=== PATIENT | male | born 1945 | race African-American/Black ===

== ENCOUNTER 2020-11-05 14:41 | Inpatient (IN) | payer MEDICARE, OTHER, SELFPAY ==
[2020-11-05] VITALS (11 sets, daily range): BP systolic 140–195; BP diastolic 88–95; PULSE 65–83; RESP 24–41; TEMP 36.1–37.2; O2SAT 92–97; BMI 28.5
--- NOTE | ~2020-11-05 | CT_ITS ---
EXAMINATION: CT chest abdomen pelvis wo con EXAM DATE: 11/05/2020 16:42 INDICATION: Shortness of breath, low oxygen saturation. Abnormal chest x-ray. TECHNIQUE: Spiral CT of the chest, abdomen and pelvis was performed without contrast. Axial, mcneal l and sagittal images chest, abdomen and pelvis were reviewed. Coronal maximum intensity pixel image s of chest reviewed. The dose-length product (DLP) for this examination was 811.92 mGy-cm. The expo sure was tailored according to patient size (auto mA exposure control), and iterative reconstruction (ASIR) was used as additional dose reduction technique. Correlation is made to chest x-ray earlier sa me date. FINDINGS: CHEST: There is there is small to moderate size left pleural effusion with smooth pleural thickening , calcifications, adjacent multisegmental left lung round atelectasis, findings suggesting this is al l chronic. There is superimposed patchy right-sided perihilar distribution groundglass airspace disease, likely acute infection or edema. Also small to moderate right pleural effusion which is nonloculated appeari ng. There is mild mediastinal lymphadenopathy with a precarinal lymph node measuring 2.1 x 1.6 cm. T racheobronchial tree is patent. There is no pneumothorax. There is cardiomegaly and small pericar dial effusion. There is mild coronary arterial calcification, arterial sclerosis. ABDOMEN PELVIS: The liver, spleen, adrenal glands and pancreas are unremarkable. Gallbladder is unre markable. No biliary obstruction. There is no nephrolithiasis or hydronephrosis. Mild prostatomeg diana. Some diffuse bladder wall thickening, could indicate chronic cystitis. Acute cystitis not exclu dable. There is no retroperitoneal or pelvic lymphadenopathy. There is mild scattered arterioscler otic disease. The appendix is normal. The stomach and small bowel are unremarkable. There is moderate amount of c olonic stool. No free intraperitoneal gas. Right hip lag screws. There are no osteoblastic or ost eolytic lesions identified. IMPRESSION: 1. Patchy right perihilar groundglass opacities, could be acute infection or edema. 2. Mediastinal lymphadenopathy, probably reactive but malignancy not excludable. 3. Cardiomegaly, small to moderate right pleural effusion. 4. Chronic left round atelectasis and small to moderate pleural. 5. Mild prostatomegaly. Mild diffuse bladder wall thickening probably chronic cystitis. Reviewed, dictated and finalized at location A. IMPRESSION: 1. Patchy right perihilar groundglass opacities, could be acute infection or e bhavya. 2. Mediastinal lymphadenopathy, probably reactive but malignancy not excludabl e. 3. Cardiomegaly, small to moderate right pleural effusion. 4. Chronic left round atelectasis and small to moderate pleural. 5. Mild prostatomegaly. Mild diffuse bladder wall thickening probably chronic cystitis.
--- NOTE | ~2020-11-05 | US_ITS ---
EXAMINATION: US venous doppler LE EXAM DATE: 11/06/2020 08:48 INDICATION: Lateral leg edema. TECHNIQUE: Multiple grayscale, color flow and Doppler images of the lower extremity deep venous syste ms bilaterally were obtained and reviewed. There is no prior study for comparison. FINDINGS: Right side: The right common femoral, femoral and profunda veins demonstrate normal color flow, respi ratory variation, augmentation and compressibility. Compressibility, color flow confirmed within the right popliteal, posterior tibial, peroneal, and greater saphenous veins. Left side: The left common femoral, femoral and profunda veins demonstrate normal color flow, respira tory variation, augmentation and compressibility. Compressibility, color flow confirmed within the l eft popliteal, posterior tibial, peroneal, and greater saphenous veins. IMPRESSION: 1. No lower extremity deep venous thrombosis bilaterally. Reviewed, dictated and finalized at location .
--- NOTE | ~2020-11-05 | XR_ITS ---
XR chest 1V portable DATE: 11/05/2020 15:13 INDICATION: Shortness of breath TECHNIQUE: Portable upright AP chest on 11/05/2020 at 1507 hours COMPARISON: None FINDINGS: There are diffuse patchy bilateral pulmonary joints with more prominent atelectasis//or con solidation in the left lower lung. The left costophrenic angle is obscured are blunted suggesting pos sible left pleural effusion. There is minimal if any right pleural effusion. No pneumothorax. Cardiomegaly. No pneumothorax. Diffuse osteopenia. IMPRESSION: Extensive bilateral pulmonary infiltrates, with greater prominence on the left, including prominent atelectasis or consolidation in the left lower lung Cardiomegaly Reviewed, dictated and finalized at location A.
--- NOTE | 2020-11-05 14:59 | ECG_ITS ---
Measurements Intervals [place] Rate: 74 P: LA: 0 QRS: -39 QRSD: 110 T: 85 QT: 388 QTc: 431 Interpretive Statements SINUS RHYTHM WITH MARKED FIRST DEGREE AV BLOCK LEFT AXIS DEVIATION INTRAVENTRICULAR CONDUCTION DELAY BORDERLINE R WAVE PROGRESSION, ANTERIOR LEADS INFERIOR INFARCT, AGE INDETERMINATE ST-T WAVE ABNORMALITY IN HIGH LATERAL LEADS- CONSIDER ISCHEMIA BASELINE ARTIFACT- II, III, AVR, AVF, V3-V6 ABNORMAL ECG Electronically Signed On 11-05-2020 16:39:46 CDT by Laurent Lagunas D.O.
--- NOTE | 2020-11-05 15:02 | PC.NURSE ---
Pt placed on 1 L NC O2 due to 91% on room air and increased WOB.
[2020-11-05 15:15] LABS: Basophils Percent Auto 0.4 % (0.2-1.2); Eosinophils Absolute Auto 0.1 K/mm3 (0-0.3); Eosinophils Percent Auto 0.7 % (0-4.4); Hematocrit 38.5 % (42.0-52.0); Hemoglobin 12.6 g/dL (14.0-18.0); Immature Granulocyte Absolute 0.02 K/mm3 (0.00-0.031); Immature Granulocyte Percent A 0.3 % (0-0.5); Lymphocytes Absolute Auto 1.02 K/mm3 (0.9-3.2); Lymphocytes Percent Auto 13.5 % (18.3-44.2); Mean Corpuscular HGB Conc 32.7 g/dl (32-36); Mean Corpuscular Hemoglobin 29.2 pg (26-34); Mean Corpuscular Volume 89.3 fl (80-100); Monocytes Absolute Auto 0.4 K/mm3 (0.1-0.6); Monocytes Percent Auto 5.8 % (2.6-8.5); Neutrophils Percent Auto 79.3 % (45.5-73.1); Platelet Count Result 236 k/mm3 (150-375); Red Blood Count 4.31 M/mm3 (4.6-6.20); Red Cell Distribution Width 14.6 % (11.5-14.5); White Blood Count 7.6 K/mm3 (4.5-10.0)
[2020-11-05 15:25] LABS: Alanine Aminotransferase 22 U/L (4-50); Albumin Level 4.2 g/dL (3.5-5.1); Alkaline Phosphatase 74 U/L (38-126); Anion Gap 11 mmol/L (8-16); Aspartate Amino Transferase 29 U/L (17-59); Bilirubin,Total 1.2 mg/dL (0.2-1.3); Blood Urea Nitrogen 14 mg/dL (9-20); Carbon Dioxide 22 mmol/L (22-30); Chloride 106 mmol/L (98-107); Estimated CRCL calculation 70 ml/min; Estimated Glomerular Filt Rate > 60; Glucose 158 mg/dL (65-110); Lipase 46 U/L (23-300); Sodium 139 mmol/L (137-145)
[2020-11-05 15:34] LABS: INR 1.1
[2020-11-05 15:35] LABS: Partial Thromboplastin Time 27.5 SECONDS (22.3-36.8)
[2020-11-05 15:39] LABS: NT Pro B Type Natriuretic Pept 3380 pg/mL (5-100); Troponin I < 0.012 ng/mL (0.000-0.034)
--- NOTE | 2020-11-05 15:41 | PC.NURSE ---
chem, alicja, added on top I
[2020-11-05 15:53] LABS: Alveolar/Arterial O2 Gradient 70.2 mmHg; Base Excess ABG -0.9 mEq/l (+/-2.0); Fractional Inspired Oxygen 24 %; HCO3 ABG 22.3 mEq/l (22.0-26.0); Oxygen Saturation ABG 93.1 % (95.0-100.0); Oxyhemoglobin 91.4 % THb (90.0-100.0); PCO2 ABG 32.5 mmHg (35.0-45.0); PO2 ABG 62.2 mmHg (80.0-100.0); PO2 FiO2 Ratio Arterial Blood 2.59 %; Total Hemoglobin 13.2 g/dL (12.0-18.0); pH ABG 7.454 (7.350-7.450)
[2020-11-05 15:54] LABS: Device NASAL CANNULA; Modified Allen's Test Pass; Site Drawn LEFT RADIAL
[2020-11-05] MEDS: SODIUM CHLORIDE 0.9% IV 1,000 ML 999 ML IV CONT (16:05)
[2020-11-05 16:19] LABS: Add Urine Microscopic? YES; Appearance Urine Clear (Clear); Bacteria Urine Trace /hpf; Bilirubin Urine Negative (Negative); Blood Urine Negative (Negative); Color Urine Yellow (Yellow); Glucose Urine UA Negative (Negative); Ketones Urine Negative (Negative); Leukocyte Esterase Ur Negative LEU/UL (Negative); Nitrate Urine Negative (Negative); Protein Urine 2+ mg/dL (Negative); Squamous Epithelial Cell Urine Rare /hpf (Few); WBC Urine 0-3 /hpf
--- NOTE | 2020-11-05 16:34 | ED.GENADULT ---
HPI - General Adult General Chief complaint: Abdominal Pain Stated complaint: abd pain, hypoxia Time Seen by Provider: 11/05/20 15:16 Source: patient, family and RN notes reviewed Limitations: no limitations History of Present Illness HPI narrative: Patient is 75 years old -[place] male presents with shortness of breath that started yesterday. Patient denies any aggravating or relieving factors. Patient noticed some discomfort at the lower abdomen. Patient denies any fever, chills, nausea, vomiting, diarrhea, constipation, urinary symptoms, back pain or chest pain. Patient is fully vaccinated for COVID-19. Patient does not smoke or drink or uses marijuana. Related Data Allergies Allergy/AdvReac Type Severity Reaction Status Date / Time lisinopril Allergy Verified 03/27/13 05:31 Review of Systems Review of Systems: Narrative: CONSTITUTIONAL: Denies fever, chills, or sweats. EYES: Denies visual changes, redness, or discharge. ENT: Denies rhinorrhea, congestion, sore throat, or otalgia. CARDIOVASCULAR: Denies chest pain, palpitations, or edema. RESPIRATORY: Denies cough or dyspnea. GASTROINTESTINAL: Denies abdominal pain, nausea, vomiting, or diarrhea. GENITOURINARY: Denies dysuria or hematuria. SKIN: Denies rash or itching. MUSCULOSKELETAL: Denies back pain, joint pain, or myalgia. NEUROLOGIC: Denies headache, numbness, or weakness. PSYCHIATRIC: Denies anxiety or depression. PMFSH Social History Social History Gender identity (if verbalized by the patient): Male Exam Narrative: Exam Narrative: General appearance: Well-developed, well-nourished Skin: Normal color, 1+ edema lower extremity Head: Normocephalic, nontraumatic Eyes: Clear conjunctiva ENT: Oropharynx normal, ears normal, nose normal Neck: Supple, nontender Chest and respiratory: Basal rales bilaterally more on the left side, Heart: Regular rate/rhythm Abdomen: Soft, nontender, no organomegaly, quiet bowel sounds Vascular: Normal peripheral pulses, normal capillary refill. Musculoskeletal: Normal range of motion, nontender back Neurologic: Alert and oriented ?3, [employer] is normal as tested, no gross motor deficit Course Course Emergency Course: Stable, Vital Signs Vital signs: Vital Signs Temperature 37.2 C 11/05/20 14:48 Pulse Rate 69 11/05/20 14:48 Respiratory Rate 35 H 11/05/20 14:48 Blood Pressure 184/93 H 11/05/20 14:48 Pulse Oximetry 92 11/05/20 14:48 Temperature 37.2 C 11/05/20 14:48 Pulse Rate 65 11/05/20 16:01 Respiratory Rate 32 H 11/05/20 16:01 Blood Pressure 187/92 H 11/05/20 16:01 Pulse Oximetry 97 11/05/20 16:01 Medical Decision Making MDM Narrative Medical decision making narrative: Patient presents with shortness of breath, lower abdominal pain. Patient is fully vaccinated for COVID-19. Pneumonia, CHF, pulmonary embolism, viral infection are my concern. Labs, blood culture, chest x-ray ordered. Work-up showed lung infiltration pulmonary edema versus pneumonia. Congestive heart failure is my likely diagnosis. Patient does not have fever, does not cough, white count within normal limit, proBNP is elevated, positive leg edema, positive pleural effusion., History of congestive heart failure Differential Diagnosis Differential Diagnosis: Pneumonia, congestive heart failure, viral infection, urinary tract infection, diverticulitis Vital Signs Vital Signs: Vital Signs Temperature 37.2 C 11/05/20 14:48 Pulse Rate 69 11/05/20 14:48 Respiratory Rate 35 H 11/05/20 14:48 Blood Pressure 184/93 H 11/05/20 14:48 Pulse Oximetry 92 11/05/20 14:48 Temperature
--- NOTE | 2020-11-05 16:41 | PC.NURSE ---
Pt to CT scan via stretcher
[2020-11-05] MEDS: FUROSEMIDE INJ 40 MG/4 ML VIAL 60 MG IV PUSH (16:53)
--- NOTE | 2020-11-05 17:03 | PC.NURSE ---
Spoke to pt daughter Antonia and updated her on pt condition.
[2020-11-05] MEDS: NITROGLYCERIN OINTMENT 1 INCH DOSE TRANSDERM (17:22)
--- NOTE | 2020-11-05 19:30 | PM.IMHP ---
H&P: HPI History of Present Illness Date/Time: 11/05/20 19:30 Chief Complaint: Shortness of breath. Narrative: This is a very pleasant 75-year-old male with history of congestive heart failure, hypertension, and type 2 diabetes mellitus who presented to the emergency department earlier today via EMS from home for evaluation of shortness of breath. He reports increasing shortness of breath on lesser and lesser exertion over the past couple of days as well as pretty significant orthopnea, to the point where he had to sit up at the side of the bed a majority of the night. Additionally he has noticed some mild discomfort in the lower abdomen that he has a difficult time describing but he feels as though it does extend up into his chest somewhat. He has not noticed exertional chest pain and he also denies pleuritic pain, palpitations, racing heart, nausea, vomiting, sweats, syncope, and near syncope. He has not noticed any significant edema and denies calf pain and tenderness. No sinus congestion, rhinorrhea, otalgia, or odynophagia. He has not had any fever or chills. No known exposure to those positive for COVID-19. He is fully vaccinated for such. Review of Systems Review of Systems: Narrative: Twelve systems were reviewed with pertinent positives and negatives as per HPI pertinent positives and negatives as per HPI. 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 He is diabetic but denies retinopathy. He believes his diabetes is fairly well controlled. No history of coronary artery disease. He does not know the etiology of his congestive heart failure. He denies sleep apnea. No dysuria or hematuria. No issues with urinary retention. Except as documented, all other systems were reviewed and are negative. FORMERLY [facility], 1928–[facility] Past Medical History Medical History (Updated 11/05/20 @ 21:02 by Denice Jean-Baptiste PA-C) Congestive heart failure Deep venous thrombosis Glaucoma Hypertension Legally blind Type 2 diabetes mellitus Surgical History Surgical History History of orthopedic surgery Right hip pinning after fracture in the 1960s. Family History Family History (Updated 11/05/20 @ 20:43 by Denice Jean-Batpiste PA-C) Other Diabetes mellitus Hypertension Social History Social History (Updated 11/05/20 @ 20:44 by Denice Jean-Baptiste PA-C) Social History: The patient lives in [place] with his . He is retired from the [employer]. Lifelong nonsmoker. No alcohol or illicit substance abuse. He designates his , Nelly Sarah, as his surrogate decision maker and he wishes to be a full code. Meds Home Medications and Allergies Allergies Allergy/AdvReac Type Severity Reaction Status Date / Time lisinopril Allergy Unknown Verified 11/05/20 18:35 Vital Signs Vital Signs - 24 hr 11/05/20 14:48 11/05/20 16:01 11/05/20 16:51 Temperature 98.9 F Pulse Rate 69 65 73 Respiratory Rate 35 H 32 H 37 H Blood Pressure 184/93 H 187/92 H 195/95 H Pulse Oximetry 92 97 94 11/05/20 17:21 11/05/20 18:20 11/05/20 19:18 Temperature Pulse Rate 80 73 Respiratory Rate 41 H 38 H Blood Pressure 140/91 H 170/88 H Pulse Oximetry 94 94 95 11/05/20 20:29 Temperature Pulse Rate 69 Respiratory Rate 36 H Blood Pressure 164/90 H Pulse Oximetry 96 Exam Narrative: Exam Narrative: General: Well-developed elderly male sitting at the side of the bed. Weight: 89 kg. BMI: 29.8. HEENT: Patient keeps his eyes closed throughout the interview; he is legally blind. Oral mucosa moist. Oropharynx clear. Neck: Supple. Mild JVD. Respiratory: Mildly tachypneic but he appears in no respiratory distress. He is speaking in full sentences. He takes shallow breaths with decreased breath sounds bibasilarly and scattered inspiratory crackles. Cardiovascular: Regular rate and rhythm. Occasional ectopy. 2/6 systolic murmur best heard at the left upper sternal border. S2 seems to have a fixed split.
[2020-11-05 20:31] LABS: Troponin I < 0.012 ng/mL (0.000-0.034)
[2020-11-05 21:24] LABS: CRP 2.5 mg/dL (<1.0)
[2020-11-05 21:27] LABS: Lactate Dehydrogenase 719 U/L (313-618)
--- NOTE | 2020-11-05 22:21 | ADMGEN ---
This patient, Yesenia Sarah, was admitted to IMU Room 209-01 on 11/05/20 at 2120. Patient/family oriented to hospital policies and general routines including ID bracelet, bed and alarms, visiting hours, pain management, procedures, bathroom and other care routines, personal items, smoking policy, room service/diet, and visiting hours. Information on how to activate the Rapid Response Team has been discussed. Patient/Family are encouraged to report perceived risks to care and to ask questions if they do not understand what they are told or what they should do.
[2020-11-05 23:48] LABS: Troponin I < 0.012 ng/mL (0.000-0.034)
[2020-11-06] VITALS (14 sets, daily range): BP systolic 141–180; BP diastolic 53–87; PULSE 57–85; RESP 16–22; TEMP 36.1–37.1; O2SAT 92–98
[2020-11-06 00:58] LABS: Procalcitonin 0.1 ng/mL
[2020-11-06 05:24] LABS: Hematocrit 38.8 % (42.0-52.0); Hemoglobin 12.4 g/dL (14.0-18.0); Mean Corpuscular Hemoglobin 28.6 pg (26-34); Mean Corpuscular Volume 89.4 fl (80-100); Mean Platelet Volume 10.3 fl (7.4-10.4); Platelet Count Result 245 k/mm3 (150-375); Red Blood Count 4.34 M/mm3 (4.6-6.20); Red Cell Distribution Width 14.7 % (11.5-14.5)
[2020-11-06 05:46] LABS: Alanine Aminotransferase 22 U/L (4-50); Alkaline Phosphatase 64 U/L (38-126); Anion Gap 10 mmol/L (8-16); Aspartate Amino Transferase 26 U/L (17-59); Bilirubin,Total 1.2 mg/dL (0.2-1.3); Blood Urea Nitrogen 14 mg/dL (9-20); Calcium 8.8 mg/dL (8.4-10.2); Carbon Dioxide 27 mmol/L (22-30); Chloride 102 mmol/L (98-107); Estimated CRCL calculation 56 ml/min; Estimated Glomerular Filt Rate > 60; Glucose 193 mg/dL (65-110); Magnesium 1.8 mg/dL (1.6-2.3); Potassium 4.1 mmol/L (3.4-5.0); Sodium 139 mmol/L (137-145)
--- NOTE | 2020-11-06 06:36 | PC.NURSE ---
11/05/20 3640-Spoke with Pt's spouse, Nelly Turner for information on Pt's home medications/pharmacy. Spouse is unable to find Pt's medication list and will call back with information once it is found. Nelly states that the Pt uses the [place] pharmacy. Unable to locate pharmacy in the clinical data list.
[2020-11-06 07:13] LABS: Thyroid Stimulating Hormone Reflex 0.995 uIU/mL (0.465-4.68)
[2020-11-06 08:19] LABS: Glucose Point of Care 189 mg/dl (65-105)
--- NOTE | 2020-11-06 09:54 | PM.IMPN ---
Progress Note: A&P Assessment and Plan (1) Acute exacerbation of congestive heart failure: Code(s): I50.9 - Heart failure, unspecified Status: Acute Assessment and Plan: denied dietary or medication noncompliance therefore etiology is unclear improving with diuresis troponins unremarkable echocardiogram pending continue diuresis with IV furosemide 40 mg twice daily (2) Abnormal chest CT: Code(s): R93.89 - Abnormal findings on diagnostic imaging of other specified body structures Status: Acute Assessment and Plan: clinically he has congestive heart failure and not pneumonia. COVID-19 PCR is pending (3) Hypertension: Code(s): I10 - Essential (primary) hypertension Status: Acute Assessment and Plan: November 06. Waiting family call with home medication list. (4) Type 2 diabetes mellitus: Code(s): E11.9 - Type 2 diabetes mellitus without complications Status: Acute Assessment and Plan: hemoglobin A1c 7% Continue diabetic diet and sliding scale insulin (5) Lower abdominal pain: Code(s): R10.30 - Lower abdominal pain, unspecified Status: Acute Assessment and Plan: resolved with diuresis suspect related to his congestive heart failure Subjective Date/time seen: 11/06/20 09:54 Interval history: admitted November 05 with gradually increasing dyspnea and orthopnea and edema. November 06 feels much better. Much less short of breath. Tolerated diet. Only complaint is some back ache if he lies on his back. Denied chest pain dyspnea at rest palpitations weakness numbness abdominal pain or dietary intolerance. Review of Systems Review of Systems: All systems reviewed & are unremarkable except as noted in HPI and below Exam Narrative: Exam Narrative: General: Well-developed elderly male in NAD HEENT: Keeps eyes closed; he is legally blind. Oral mucosa moist. Oropharynx clear. Neck: No JVD Respiratory: Mildly tachypneic but he appears in no respiratory distress. He is speaking in full sentences. Bibasilar crackles. Cardiovascular: Regular rate and rhythm. NL S1/S2. Gastrointestinal: Abdomen is soft And nondistended with positive bowel sounds. He is somewhat tender to deeper palpation in the suprapubic region. No voluntary guarding or rebound tenderness. No CVA tenderness. Skin: Warm and dry. Extremities: No cyanosis Or clubbing. No edema. Neurological: Alert. Cranial nerves 4-12 are grossly intact to inspection Psychiatric: Pleasant and cooperative with normal mood and affect. Objective Data Vital Signs Vital Signs: Vital Signs - 24 hr 11/05/20 14:48 11/05/20 16:01 11/05/20 16:51 Temperature 98.9 F Pulse Rate 69 65 73 Respiratory Rate 35 H 32 H 37 H Blood Pressure 184/93 H 187/92 H 195/95 H Pulse Oximetry 92 97 94 11/05/20 17:21 11/05/20 18:20 11/05/20 19:18 Temperature Pulse Rate 80 73 Respiratory Rate 41 H 38 H Blood Pressure 140/91 H 170/88 H Pulse Oximetry 94 94 95 11/05/20 20:29 11/05/20 21:22 11/05/20 21:25 Temperature Pulse Rate 69 68 83 Respiratory Rate 36 H 24 H Blood Pressure 164/90 H Pulse Oximetry 96 95 11/05/20 21:30 11/05/20 22:00 11/06/20 00:00 Temperature 96.9 F L Pulse Rate 67 68 81 Respiratory Rate 24 H 16 Blood Pressure 189/94 H Pulse Oximetry 95 95 11/06/20 00:13 11/06/20 02:00 11/06/20 04:00 Temperature 97.9 F 96.9 F L Pulse Rate 74 79 68 Respiratory Rate 16 18 Blood Pressure 180/87 H 179/86 H Pulse Oximetry 95 95 11/06/20 06:00 11/06/20 08:00 Temperature 98.2 F Pulse Rate 70 73 Respiratory Rate 18 Blood Pressure 153/83 H Pulse Oximetry 94 Intake/Output Intake/Output: Intake & Output 11/03/20 11/04/20 11/05/20 11/06/20 23:59 23:59 23:59 23:59 Intake Total 1300 200 Output Total 880 Balance 1300 -680 Meds/Results Medications: Active Medications Generic Name Dose Route Sta
[2020-11-06] MEDS: FUROSEMIDE INJ 40 MG/4 ML VIAL IV PUSH ×2 (10:12→20:10)
[2020-11-06] MEDS: ENOXAPARIN 40 MG/0.4 ML SYRINGE SUB-Q (10:12)
[2020-11-06 13:26] LABS: Glucose Point of Care 204 mg/dl (65-105)
[2020-11-06] MEDS: INSULIN ASPART (*BKC) 100 UNITS/ML SUB-Q ×2 (13:36→17:41)
[2020-11-06 16:43] LABS: SARS-CoV-2 RNA PCR Negative
[2020-11-06] MEDS: ISOSORBIDE DINITRATE 20 MG TABLET PO (17:43)
[2020-11-06] MEDS: hydrALAZINE HCL 50 MG TABLET PO (17:43)
[2020-11-06 18:46] LABS: Glucose Point of Care 226 mg/dl (65-105)
[2020-11-06] MEDS: ROSUVASTATIN 10 MG TABLET 20 MG PO (20:10)
[2020-11-06] MEDS: carvediloL 25 MG TABLET PO (20:11)
[2020-11-06] MEDS: DORZOLAMIDE/TIMOLOL OPHTH SOL 10 ML BOTTLE 1 DROP EACH EYE (20:12)
[2020-11-06] MEDS: FLUOROMETHOLONE 0.1% OP SUSP 5 ML BTL 1 DROP RIGHT EYE (20:13)
[2020-11-06] MEDS: POLYMYXIN/TRIMETHOPRIM OPHTH 10 ML DROPS 1 DROP EACH EYE (20:13)
[2020-11-06 20:35] LABS: Glucose Point of Care 232 mg/dl (65-105)
--- NOTE | 2020-11-06 21:05 | ECHO_ITS ---
Patient Info Name: Yesenia Sarah Age: 75 years : 1945 Gender: Male Ht: 68 in Wt: 183 lbs BSA: 2.01 m2 HR: 72 bpm BP: 179 / 66 mmHg Technical Quality: Good Exam Date: 11/06/2020 7:42 AM Exam Location: [facility] Patient Status: Inpatient Admit Date: 11/05/2020 Staff Ordering Physician: Denice Jean-Baptiste PA-C Staff Development Nurse: Yennifer Valle RDCS Attending Provider: Cindy Naqvi MD Referring Physician: Jerilyn ARRIETA; Exam Type: CA echo doppler color flow Study Info Complete two-dimensional, color flow and Doppler transthoracic echocardiogram is performed. Summary 1. Complete two-dimensional, color flow and Doppler transthoracic echocardiogram is performed. 2. Left ventricular chamber dimension is moderately enlarged. 3. Left ventricular systolic function is mildly reduced, estimated at 45-50%. 4. All basal segments are hypokinetic with normal mid-apical segments. 5. There is moderately increased left ventricular wall thickness. 6. The left ventricular diastolic function is abnormal. 7. E/e' 12 is mildly abnormal. 8. Right ventricular systolic function is mild-moderately reduced and with abnormal TAPSE 1.4 cm. 9. Left atrial chamber dimension is moderately enlarged. 10. Right atrial chamber dimension is mildly enlarged. 11. There is mild mitral valve regurgitation. 12. There is mild tricuspid valve regurgitation. 13. Severe pulmonary hypertension, estimated pulmonary arterial systolic pressure is 67 mmHg. 14. There is trivial pericardial effusion. Left Ventricle E/e' 12 is mildly abnormal. All basal segments are hypokinetic with normal mid-apical segments. Left ventricular chamber dimension is moderately enlarged. Left ventricular systolic function is mildly reduced, estimated at 45-50%. There is moderately increased left ventricular wall thickness. The left ventricular diastolic function is abnormal. Right Ventricle Right ventricular systolic function is mild-moderately reduced and with abnormal TAPSE 1.4 cm. Right ventricular chamber dimension is normal. Left Atria Left atrial chamber dimension is moderately enlarged. Right Atria Right atrial chamber dimension is mildly enlarged. Aortic Valve The aortic valve is trileaflet. There is no aortic valve stenosis. There is no aortic valve regurgitation. Pulmonic Valve There is no pulmonic regurgitation. Mitral Valve There is no mitral valve stenosis. There is mild mitral valve regurgitation. Tricuspid Valve There is mild tricuspid valve regurgitation. Severe pulmonary hypertension, estimated pulmonary arterial systolic pressure is 67 mmHg. Pericardium/Pleural There is trivial pericardial effusion. Inferior Vena Cava Normal inferior vena cava with >50% collapse upon inspiration consistent with normal right atrial pressure, 5 mmHg. Aorta The aortic root size at the sinus of Valsalva is normal. Left Ventricular Outflow Tract Name Value Normal LVOT 2D LVOT Diameter 2.3 cm LVOT Doppler LVOT Peak Gradient 1 mmHg LVOT Mean Gradient 1 mmHg LVOT VTI
[2020-11-07] MEDS: ACETAMINOPHEN 325 MG TABLET 650 MG PO (00:41)
[2020-11-07 07:35] VITALS: BP 150/85; PULSE 60; RESP 20; TEMP 36.6; O2SAT 96
[2020-11-07 08:00] VITALS: O2SAT 96
[2020-11-07 09:10] LABS: Glucose Point of Care 180 mg/dl (65-105)
[2020-11-07] MEDS: hydrALAZINE HCL 50 MG TABLET PO ×2 (09:15→12:11)
[2020-11-07] MEDS: POTASSIUM CHLORIDE 10 MEQ TABLET.ER PO (09:15)
[2020-11-07] MEDS: ISOSORBIDE DINITRATE 20 MG TABLET PO ×2 (09:15→12:11)
[2020-11-07] MEDS: ASPIRIN 81 MG CHEWABLE TABLET PO (09:15)
[2020-11-07 09:16] VITALS: PULSE 84
[2020-11-07] MEDS: LOSARTAN POTASSIUM 25 MG TABLET PO (09:16)
[2020-11-07] MEDS: metFORMIN HCL 500 MG TABLET 1000 MG PO (09:16)
[2020-11-07] MEDS: carvediloL 25 MG TABLET PO (09:16)
[2020-11-07] MEDS: ENOXAPARIN 40 MG/0.4 ML SYRINGE SUB-Q (09:16)
[2020-11-07] MEDS: FUROSEMIDE INJ 40 MG/4 ML VIAL IV PUSH (09:17)
[2020-11-07] MEDS: FLUOROMETHOLONE 0.1% OP SUSP 5 ML BTL 1 DROP RIGHT EYE (09:19)
[2020-11-07] MEDS: DORZOLAMIDE/TIMOLOL OPHTH SOL 10 ML BOTTLE 1 DROP EACH EYE (09:19)
[2020-11-07] MEDS: POLYMYXIN/TRIMETHOPRIM OPHTH 10 ML DROPS 1 DROP EACH EYE (09:19)
[2020-11-07 09:26] LABS: Anion Gap 7 mmol/L (8-16); Blood Urea Nitrogen 21 mg/dL (9-20); Calcium 8.6 mg/dL (8.4-10.2); Carbon Dioxide 27 mmol/L (22-30); Chloride 105 mmol/L (98-107); Estimated CRCL calculation 51 ml/min; Estimated Glomerular Filt Rate > 60; Glucose 194 mg/dL (65-110); Potassium 3.7 mmol/L (3.4-5.0); Sodium 139 mmol/L (137-145)
--- NOTE | 2020-11-07 11:58 | PM.TDS ---
Transfer Discharge Sum: Prov Provider Date of admission: 11/05/20 17:01 Primary care physician: CINDY MASON,GERMAIN Admitting clinician: Cindy Naqvi MD Discharging clinician: Jasen Summers Anticipated date of transfer: 11/07/20 Receiving physician/facility: Dr. Manpreet Mitchell, [facility] DS: Admitting Diagnosis Admitting Diagnosis chf, acute on chronic systolic DS: Discharge Diagnosis Discharge Diagnosis (1) Acute exacerbation of congestive heart failure: Code(s): I50.9 - Heart failure, unspecified Status: Acute Assessment and Plan: denied dietary or medication noncompliance therefore etiology is unclear improving with diuresis troponins unremarkable echocardiogram pending continue diuresis with IV furosemide 40 mg twice daily (2) Abnormal chest CT: Code(s): R93.89 - Abnormal findings on diagnostic imaging of other specified body structures Status: Acute Assessment and Plan: clinically he has congestive heart failure and not pneumonia. COVID-19 PCR is NEGATIVE (3) Hypertension: Code(s): I10 - Essential (primary) hypertension Status: Acute Assessment and Plan: November 06. home meds initiated after family called with list (4) Type 2 diabetes mellitus: Code(s): E11.9 - Type 2 diabetes mellitus without complications Status: Acute Assessment and Plan: hemoglobin A1c 7% Continue diabetic diet and sliding scale insulin (5) Lower abdominal pain: Code(s): R10.30 - Lower abdominal pain, unspecified Status: Acute Assessment and Plan: resolved with diuresis suspect related to his congestive heart failure Transfer Discharge Sum: Med Medications Active and Home Medications: Home Medications aspirin 81 mg PO DAILY 11/06/20 [History Confirmed 11/06/20] carvedilol 25 mg PO BID 11/06/20 [History Confirmed 11/06/20] dorzolamide-timolol 1 drp OPHTHALMIC (EYE) BID 11/06/20 [History Confirmed 11/06/20] fluorometholone 1 drp RIGHT EYE BID 11/06/20 [History Confirmed 11/06/20] furosemide 40 mg PO DAILY 11/06/20 [History Confirmed 11/06/20] hydralazine 50 mg PO TID 11/06/20 [History Confirmed 11/06/20] isosorbide dinitrate 20 mg PO TID 11/06/20 [History Confirmed 11/06/20] losartan 25 mg PO DAILY 11/06/20 [History Confirmed 11/06/20] metformin 1,000 mg PO DAILY 11/06/20 [History Confirmed 11/06/20] polymyxin B sulf-trimethoprim 1 drp EACH EYE BID 11/06/20 [History Confirmed 11/06/20] potassium chloride 10 meq PO DAILY 11/06/20 [History Confirmed 11/06/20] rosuvastatin 20 mg PO HS 11/06/20 [History Confirmed 11/06/20] Active Medications Acetaminophen (Acetaminophen 325 Mg Tablet) 650 mg PO Q6H PRN PRN Reason: Mild Pain (1-3) or Fever Last Admin: 11/07/20 00:41 Dose: 650 mg Documented by: Aspirin (Aspirin 81 Mg Chewable Tablet) 81 mg PO DAILY [facility] Last Admin: 11/07/20 09:15 Dose: 81 mg Documented by: Carvedilol (Carvedilol 25 Mg Tablet) 25 mg PO Q12HR [facility] Last Admin: 11/07/20 09:16 Dose: 25 mg Documented by: Dextrose (Dextrose 50% 25 Gm/50 Ml Syringe) 12.5 gm IV PUSH PRN PRN; Protocol PRN Reason: Hypoglycemia Dorzolamide/Timolol (Dorzolamide/Timolol Ophth Dayana 10 Ml Bottle) 1 drop EACH EYE Q12HR [facility] Last Admin: 11/07/20 09:19 Dose: 1 drop Documented by: Enoxaparin Sodium (Enoxaparin 40 Mg/0.4 Ml Syringe) 40 mg SUB-Q DAILY [facility] Last Admin: 11/07/20 09:16 Dose: 40 mg Documented by: Fluorometholone (Fluorometholone 0.1% Op Susp 5 Ml Btl) 1 drop RIGHT EYE Q12HR [facility] Last Admin: 11/07/20 09:19 Dose: 1 drop Documented by: Furosemide (Furosemide Inj 40 Mg/4 Ml Vial) 40 mg IV PUSH Q12HR [facility] Last Admin: 11/07/20 09:17 Dose: 40 mg Documented by: Glucagon (Glucagon For Inj 1 Mg Vial) 1 mg IM PRN PRN; Protocol PRN Reason: Hypoglycemia Glucose (Glucose Oral Gel 15 Gm Of Glucse In 37.5 Gm Tube) 15 gm PO PRN PRN; Protocol PRN Reason: Hypoglycemia Hydralazine HCl (Hydralazine Hcl 50
[2020-11-07] MEDS: INSULIN ASPART (*BKC) 100 UNITS/ML SUB-Q (12:11)
[2020-11-07 12:23] LABS: Glucose Point of Care 252 mg/dl (65-105)
--- NOTE | 2020-11-07 15:12 | PC.NURSE ---
[facility] at [facility]. Report called to Lisa. Quinn sent with patient. Risks/benefits explained, verbalized understanding
== END 2020-11-07 15:10 | DRG 293 ==
LOC: ANHED 19:40 → ANHIMU 11-06 11:47
PROVIDERS: Physician Assistant; Admitting Provider Family Medicine; Emergency Provider Emergency Medicine; Visit Provider Internal Medicine
DX: I11.0 Hypertensive heart disease with heart failure (principal); I50.23 Acute on chronic systolic (congestive) heart failure; E11.9 Type 2 diabetes mellitus without complications; Z20.822 Contact with and (suspected) exposure to COVID-19; R10.30 Lower abdominal pain, unspecified; E11.39 Type 2 diabetes mellitus with other diabetic ophthalmic complication; H42 Glaucoma in diseases classified elsewhere; H54.8 Legal blindness, as defined in USA; Z91.11 Patient's noncompliance with dietary regimen; Z91.14 Patient's other noncompliance with medication regimen; Z86.718 Personal history of other venous thrombosis and embolism
CPT/HCPCS: 36415; 36600; 71045; 71250; 74176; 80048; 80053; 81001; 82728; 82805; 82948; 83036; 83615; 83690; 83735; 83880; 84145; 84443; 84484; 85025; 85027; 85610; 85730; 86140; 87040; 93005; 93306; 93970; 96361; 96374; 99285; A9270; C9803; J0456; J0696; J1650; J1815; J1940; J7030; U0003; U0005

== ENCOUNTER 2021-08-24 15:47 | Inpatient (IN) | payer MEDICARE, OTHER, SELFPAY ==
[2021-08-24] VITALS (37 sets, daily range): BP systolic 116–142; BP diastolic 63–96; PULSE 54–66; RESP 17–40; TEMP 35.9–36.8; O2SAT 61–98; BMI 25.0
--- NOTE | ~2021-08-24 | XR_ITS ---
EXAMINATION: [id number] DATE: 08/26/2021 12:24 INDICATION: Left-sided pleural effusion postthoracentesis TECHNIQUE: frontal and lateral views of the chest were obtained. COMPARISON: Chest radiograph dated 08/25 2021, 08/24/[address] dated 08/25/2021 FINDINGS: Interval resolution of the prior moderate-sized right pleural effusion. Decreased left lung volume wi th persistent opacities in the left mid to lower lung zone which corresponds to a chronic small locul ated left pleural effusion with associated pleural calcifications and round atelectasis in the right lower lobe. Decrease in mild bilateral perihilar opacities. No pneumothorax. Cardiomegaly. Three lead pacemaker seen with leads projecting over the expected locations of the right atrial appendage, apex of the right ventricle and overlying the left ventricle likely having traversed the coronary sinus. IMPRESSION: 1. Resolution of prior right pleural effusion and no pneumothorax post right thoracentesis. 2. Chronic opacities in the left mid and lower lung zone which on CT corresponds to a chronic small l oculated left pleural effusion and round atelectasis/scarring the left lower lobe. 3. With improvement in mild perihilar opacities which could represent pulmonary edema or pneumonia. Reviewed, dictated and finalized at location A. IMPRESSION: 1. Resolution of prior right pleural effusion and no pneumothorax post right th oracentesis. 2. Chronic opacities in the left mid and lower lung zone which on CT correspond s to a chronic small loculated left pleural effusion and round atelectasis/scar ring the left lower lobe. 3. With improvement in mild perihilar opacities which could represent pulmonary edema or pneumonia.
--- NOTE | ~2021-08-24 | XR_ITS ---
EXAMINATION: XR chest PICC line DATE: 08/29/2021 15:33 INDICATION: Central line placement. TECHNIQUE: A single frontal view of the chest was obtained on 2 radiographs. COMPARISON: Chest single view at 2:44 PM FINDINGS: There is a small loculated left pleural effusion. There are airspace opacities in left mid and lower lung zones. No pneumothorax. Cardiomegaly is noted. There is a left chest pacer with leads in right ventricle, right ventricle, and coronary sinus. A right internal jugular central venous cath eter is seen with tip at the superior cavoatrial junction. IMPRESSION: 1. Central line tip at superior cavoatrial junction. 2. Stable small loculated left pleural effusion. 3. Stable airspace opacities in left mid and lower lung zones, consistent with atelectasis versus pne umonia. 4. Cardiomegaly. Reviewed, dictated and finalized at location B. IMPRESSION: 1. Central line tip at superior cavoatrial junction. 2. Stable small loculated left pleural effusion. 3. Stable airspace opacities in left mid and lower lung zones, consistent with atelectasis versus pneumonia. 4. Cardiomegaly.
--- NOTE | ~2021-08-24 | US_ITS ---
EXAMINATION: US renal BI DATE: 08/29/2021 12:36 INDICATION: Acute kidney injury. TECHNIQUE: Multiple ultrasound grayscale images of the kidneys were obtained. COMPARISON: CT abdomen and pelvis 11/05/2020 FINDINGS: The right kidney measures 9.8 x 5.0 x 5.9 cm. The left kidney measures 9.9 x 5.6 x 5.7 cm. The kidney s demonstrate normal parenchymal echogenicity. There is no hydronephrosis. The bladder is decompresse d. IMPRESSION: 1. Normal kidneys. No hydronephrosis. Reviewed, dictated and finalized at location B.
--- NOTE | ~2021-08-24 | XR_ITS ---
EXAMINATION: XR chest port-a-cath/central DATE: 08/29/2021 14:48 INDICATION: Central line placement. TECHNIQUE: A single frontal view of the chest was obtained. COMPARISON: Chest single view at 8:37 AM, chest CT 08/25/2021 FINDINGS: There is a small loculated left pleural effusion. Andreia B-lines are noted, consistent with mild pulmonary edema. There are airspace opacities in left mid and lower lung zones. No pneumothorax . Cardiomegaly is noted. There is a left chest pacer with leads in right atrium, right ventricle, and coronary sinus. A right internal jugular central venous catheter is seen with tip in the right atriu m. IMPRESSION: 1. Central line tip in right atrium. 2. Mild pulmonary edema. 3. Stable small loculated left pleural effusion. 4. Stable airspace opacities in left mid and lower lung zones, consistent with atelectasis versus pne umonia. 5. Cardiomegaly. Reviewed, dictated and finalized at location B. IMPRESSION: 1. Central line tip in right atrium. 2. Mild pulmonary edema. 3. Stable small loculated left pleural effusion. 4. Stable airspace opacities in left mid and lower lung zones, consistent with atelectasis versus pneumonia. 5. Cardiomegaly.
--- NOTE | ~2021-08-24 | XR_ITS ---
XR chest 1V portable 08/29/2021 08:46 Indication: Pleural effusion Procedure: AP portable chest Comparison: 08/25/2021 Findings: Cardiomegaly. There is bilateral airspace disease, left greater than right. Left pleural ef fusion. Pacemaker leads are stable. No pneumothorax. No acute osseous abnormality. Impression: 1: Bilateral airspace disease may represent pneumonia or edema. 2: Cardiomegaly. Reviewed, dictated and finalized at location A. Impression: 1: Bilateral airspace disease may represent pneumonia or edema. 2: Cardiomegaly.
--- NOTE | ~2021-08-24 | XR_ITS ---
EXAMINATION: XR chest 1V portable DATE: 08/31/2021 05:56 INDICATION: Increased oxygen demands TECHNIQUE: frontal view of the chest was obtained. COMPARISON: Chest radiograph dated 08/29/2021 FINDINGS: Right internal jugular central venous catheter with distal tip at the superior cavoatrial junction. O pacities in the bilateral mid and lower lung zones most dense in the left lower lung zone and with so me increase in the right lower lung zone. No pneumothorax or right-sided pleural effusion. Possible s mall left pleural effusion. Cardiomegaly. Three lead pacemaker seen with leads projecting over the ex pected locations of the right atrial appendage, apex of the right ventricle and overlying the left ve ntricle likely having traversed the coronary sinus. IMPRESSION: 1. Opacities in the bilateral mid and lower lung zones with some increase at the left lower lung zone which could represent pulmonary edema or pneumonia. 2. Possible small left pleural effusion. 3. Cardiomegaly. Reviewed, dictated and finalized at location A. IMPRESSION: 1. Opacities in the bilateral mid and lower lung zones with some increase at th e left lower lung zone which could represent pulmonary edema or pneumonia. 2. Possible small left pleural effusion. 3. Cardiomegaly.
--- NOTE | ~2021-08-24 | XR_ITS ---
EXAMINATION: XR chest 1V portable DATE: 09/01/2021 05:53 INDICATION: Pulmonary edema. Pneumonia. TECHNIQUE: frontal view of the chest was obtained. COMPARISON: Chest radiograph dated 08/31/2021 FINDINGS: Endotracheal tube tip 3.4 cm above the alisa. Right internal jugular central venous catheter tip bree r the superior cavoatrial junction. Nasogastric tube with distal tip collimated off the study. Persistent opacities in the bilateral lower lung zones, left greater than right. Small to moderate-si zed left pleural effusion. No pneumothorax or right pleural effusion. Cardiomegaly. Three lead pacem froy seen with leads projecting over the expected locations of the right atrial appendage, apex of th e right ventricle and overlying the left ventricle likely having traversed the coronary sinus. IMPRESSION: 1. Small to moderate left pleural effusion. 2. Persistent opacities in bilateral lower lung zones, left greater than right which could represent pneumonia, pulmonary edema, atelectasis or some combination thereof. 3. Cardiomegaly. Reviewed, dictated and finalized at location A. IMPRESSION: 1. Small to moderate left pleural effusion. 2. Persistent opacities in bilateral lower lung zones, left greater than right which could represent pneumonia, pulmonary edema, atelectasis or some combinati on thereof. 3. Cardiomegaly.
--- NOTE | ~2021-08-24 | US_ITS ---
EXAMINATION: US thoracentesis DATE: 08/26/2021 12:25 INDICATION: Right pleural effusion TECHNIQUE: The procedure and its risks and benefits were discussed with the patient. Potential risks discussed included bleeding, infection, and pneumothorax. The patient understood the risks and agreed to proceed. The skin was prepped and draped in sterile fashion. 1% lidocaine was used for local anes thesia. Under ultrasound guidance, a 5 Fr catheter with trochar was advanced into the right pleural e ffusion. Fluid was aspirated. The catheter was removed, and a dressing was applied. There were no imm ediate complications. FINDINGS: Ultrasound images demonstrate a moderate-sized right pleural effusion and the catheter within the flu id. IMPRESSION: 1. Successful ultrasound-guided thoracentesis yielding 1000 mL of clear [id number] fluid . Reviewed, dictated and finalized at location A. IMPRESSION: 1. Successful ultrasound-guided thoracentesis yielding 1000 mL of clear reddis [id number] fluid.
--- NOTE | ~2021-08-24 | XR_ITS ---
XR abdomen/kub 1V DATE: 08/27/2021 03:23 INDICATION: Abdominal pain, constipation TECHNIQUE: Supine AP view COMPARISON: 11/02/2020 CT chest abdomen pelvis FINDINGS: Several pins are noted in the proximal right femur, terminating in the right femoral head. Fracture deformity of the left femoral neck. 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 No bowel obstruction is evident. The psoas shadows are intact. No visceromegaly is detected. Pacemaker lead overlies the cardiac apex. IMPRESSION: No evidence of bowel obstruction Reviewed, dictated and finalized at Location A. Reviewed, dictated and finalized at location A.
--- NOTE | ~2021-08-24 | CT_ITS ---
EXAMINATION:CT diagnostic chest w con DATE: 08/25/2021 16:39 INDICATION: Left pleural effusion. TECHNIQUE: Computed tomography (CT) of the chest was performed with 75 mL Omnipaque 300 intravenous c ontrast. Automated exposure control and iterative reconstruction technique were employed. The dose-le ngth product (DLP) was 208.25 mGy-cm. COMPARISON: Chest CT 11/05/2020 FINDINGS: There is a moderate-sized right pleural effusion. There is a small left pleural effusion wi th chronic pleural thickening and pleural calcifications. There are chronic airspace opacities in lef t lung abutting the pleura with a swirling of the lung parenchyma, consistent with rounded atelectasi s. There are groundglass opacities in the lungs bilaterally. There is smooth septal thickening in the lungs. There are patchy airspace opacities in right lung. Cardiomegaly is noted. No pericardial effu arley. There is a left chest pacer with leads in right atrium, right ventricle, and coronary sinus. Th ere is no pulmonary embolus. There is mild thoracic spondylosis. There is severe cervical spondylosis . IMPRESSION: 1. Moderate-sized right pleural effusion. 2. Small left pleural effusion with chronic pleural thickening and pleural calcifications. 3. Diffuse lung disease, consistent with moderate pulmonary edema without or with superimposed pneumo castillo. 4. Cardiomegaly. Reviewed, dictated and finalized at location A. IMPRESSION: 1. Moderate-sized right pleural effusion. 2. Small left pleural effusion with chronic pleural thickening and pleural calc ifications. 3. Diffuse lung disease, consistent with moderate pulmonary edema without or wi th superimposed pneumonia. 4. Cardiomegaly.
--- NOTE | ~2021-08-24 | XR_ITS ---
EXAMINATION: XR chest 1V portable Exam Date/Time: 09/03/2021 17:35 CDT HISTORY: increasing o2 requirements Comparison: Same date, 5:14 AM. RESULT: Lines, tubes, and devices: Right IJ central venous line, Endotracheal and nasogastric tubes remain in stable and good position. Lungs and pleura: Stable left lower lung atelectasis/consolidation with increased patchy airspace an d interstitial opacities in the remaining lungs. Worsening bilateral costophrenic angle blunting. Cardiomediastinal silhouette: Stable cardiomediastinal silhouette. Other: No acute osseous or upper abdominal finding. IMPRESSION: Worsening pulmonary edema. Stable left lower lobe atelectasis/consolidation. Worsening bilateral effu sions. Reviewed, dictated and finalized at location K. IMPRESSION: Worsening pulmonary edema. Stable left lower lobe atelectasis/consolidation. Wo rsening bilateral effusions.
--- NOTE | ~2021-08-24 | XR_ITS ---
EXAMINATION: XR chest 1V portable INDICATION: Shortness of breath TECHNIQUE: Portable AP chest at 0538 hours COMPARISON: 08/24/2021 FINDINGS: Cardiomegaly is noted. There are diffuse interstitial and airspace opacities without signif icant change. There is no pneumothorax. There are small pleural effusions. A triple lead cardiac pace maker of the left chest wall ends with leads in expected locations. IMPRESSION: 1. Stable diffuse lung disease, consistent with pneumonia and/or pulmonary edema. 2. Cardiomegaly. 3. Small pleural effusions. Reviewed, dictated and finalized at location A. IMPRESSION: 1. Stable diffuse lung disease, consistent with pneumonia and/or pulmonary onofre a. 2. Cardiomegaly. 3. Small pleural effusions.
--- NOTE | ~2021-08-24 | XR_ITS ---
EXAMINATION: XR chest ET placement INDICATION: Respiratory failure TECHNIQUE: Portable AP chest at 1241 hours COMPARISON: 0532 hours FINDINGS: The endotracheal tube ends approximately 2.5 cm above the alisa. The nasogastric tube is f ollowed as far as the stomach. Its tip is beyond the inferior margin of the radiograph. A right inter nal jugular catheter ends with its tip in the distal superior vena cava. Cardiomegaly is noted. There are stable opacities of the mid and lower lung zones. A moderate size left pleural effusion is prese nt. There is no pneumothorax. A triple lead cardiac pacemaker of the left chest wall ends with leads in expected locations. IMPRESSION: 1. Lines and tubes in expected positions. 2. Stable opacities of the mid and lower lung zones, pneumonia/or pulmonary edema. 3. Moderate-sized left pleural effusion. 4. Cardiomegaly. Reviewed, dictated and finalized at location A. IMPRESSION: 1. Lines and tubes in expected positions. 2. Stable opacities of the mid and lower lung zones, pneumonia/or pulmonary [place] ma. 3. Moderate-sized left pleural effusion. 4. Cardiomegaly.
--- NOTE | ~2021-08-24 | XR_ITS ---
EXAMINATION: XR abdomen NG/feed tube insert INDICATION: Nasogastric tube placement TECHNIQUE: Portable AP KUB-NG at 1242 hours COMPARISON: 08/27/2021 FINDINGS: The nasogastric tube is in the stomach. The bowel gas pattern is unremarkable. There are op acities of the visualized lung bases. IMPRESSION: 1. Nasogastric tube in the stomach. Reviewed, dictated and finalized at location A.
--- NOTE | ~2021-08-24 | XR_ITS ---
EXAMINATION: XR chest 1V portable INDICATION: Respiratory failure TECHNIQUE: Portable AP chest at 0508 hours COMPARISON: 09/01/2021 FINDINGS: The endotracheal tube ends approximately 3.1 cm above the alisa. The nasogastric tube is f ollowed as far as the stomach. Its tip is beyond the inferior margin of the radiograph. Diffuse opaci ties persist throughout all lung zones with interval worsening. Cardiomegaly is noted. There is a sma [id number]-[id number] sized left pleural effusion. A triple lead cardiac pacemaker of the left chest wall en ds with leads in expected locations. IMPRESSION: 1. Diffuse lung disease with interval worsening, consistent with pneumonia and/or pulmonary edema. 2. Cardiomegaly. 3. Lzptk-[id number] sized left pleural effusion. Reviewed, dictated and finalized at location A. IMPRESSION: 1. Diffuse lung disease with interval worsening, consistent with pneumonia and/ or pulmonary edema. 2. Cardiomegaly. 3. Ktthk-iu-nfotrkui sized left pleural effusion.
--- NOTE | ~2021-08-24 | XR_ITS ---
XR chest 2V DATE: 08/24/2021 16:07 INDICATION: Shortness of breath TECHNIQUE: AP and lateral views COMPARISON: 11/05/2020 CT chest and portable AP chest FINDINGS: There is extensive atelectasis in the cervical spine or consolidation in the left mid and l ower lung zones and blunting of the left costophrenic angle suggesting left pleural effusion. There is patchy infiltrate in the right mid and lower lung zones. Slight right pleural effusion is deras ggested. Cardiomegaly, pulmonary vascular congestion. Triple lead left-sided pacemaker device No pneumothorax. Extensive bilateral pulmonary infiltrates and/atelectasis, particularly in the left mid and lower lung zones IMPRESSION: Bilateral pleural effusions, left greater than right New triple lead left-sided pacemaker device and 11/05/2020 Cardiomegaly, pulmonary vascular congestion Reviewed, dictated and finalized at location B.
--- NOTE | ~2021-08-24 | XR_ITS ---
EXAMINATION: XR chest 1V portable DATE: 09/03/2021 05:49 INDICATION: Pulmonary edema TECHNIQUE: frontal view of the chest was obtained. COMPARISON: Chest radiograph date FINDINGS: Endotracheal tube tip 1.8 cm above the alisa. Right internal jugular central venous catheter with di stal tip at the high right atrium. Nasogastric tube extends below the left hemidiaphragm with distal tip collimated off the study. Persistent opacities in the left lower lung zone consistent with small left pleural effusion and asso ciated atelectasis and/or pneumonia. Hazy opacities in the left lower lung zone suspicious for very s mall posterior layering right pleural effusion. No pneumothorax. Cardiomegaly. Three lead pacemaker s een with leads projecting over the expected locations of the right atrial appendage, apex of the righ t ventricle and overlying the left ventricle likely having traversed the coronary sinus. Visualized b ones and soft tissues are unremarkable. IMPRESSION: 1. Persistent opacities in the bilateral lower lung zones, left greater than right consistent with sm all left and likely very small right pleural effusions with associated basilar atelectasis and/or pne umonia. 2. Cardiomegaly. Reviewed, dictated and finalized at location A. IMPRESSION: 1. Persistent opacities in the bilateral lower lung zones, left greater than ri ght consistent with small left and likely very small right pleural effusions wi th associated basilar atelectasis and/or pneumonia. 2. Cardiomegaly.
--- NOTE | 2021-08-24 15:52 | ECG_ITS ---
Measurements Intervals Rush Rate: 54 P: -74 VT: 171 QRS: 217 QRSD: 161 T: 98 QT: 491 QTc: 467 Interpretive Statements ELECTRONIC ATRIAL PACEMAKER WITH INHIBITION ELECTRONIC VENTRICULAR PACEMAKER NO FURTHER INTERPRETATION IS POSSIBLE ATYPICAL ECG Electronically Signed On 08-24-2021 19:35:02 CDT by Laurent Lagunas D.O.
[2021-08-24 16:34] LABS: Basophils Percent Auto 0.2 % (0.2-1.2); Eosinophils Percent Auto 0.1 % (0-4.4); Hematocrit 38.6 % (42.0-52.0); Hemoglobin 12.6 g/dL (14.0-18.0); Immature Granulocyte Absolute 0.02 K/mm3 (0.00-0.031); Immature Granulocyte Percent A 0.2 % (0-0.5); Lymphocytes Absolute Auto 0.94 K/mm3 (0.9-3.2); Mean Corpuscular HGB Conc 32.6 g/dl (32-36); Mean Corpuscular Hemoglobin 30.1 pg (26-34); Mean Corpuscular Volume 92.1 fl (80-100); Mean Platelet Volume 10.7 fl (7.4-10.4); Monocytes Absolute Auto 0.5 K/mm3 (0.1-0.6); Monocytes Percent Auto 5.8 % (2.6-8.5); Neutrophils Percent Auto 82.7 % (45.5-73.1); Platelet Count Result 228 k/mm3 (150-375); Red Blood Count 4.19 M/mm3 (4.6-6.20); Red Cell Distribution Width 15.8 % (11.5-14.5); White Blood Count 8.5 K/mm3 (4.5-10.0)
[2021-08-24 16:45] LABS: INR 1.2; Partial Thromboplastin Time 27.1 SECONDS (22.3-36.8); Prothrombin Time 14.9 Seconds (11.1-14.7)
[2021-08-24 16:48] LABS: Alanine Aminotransferase 44 U/L (6-50); Alkaline Phosphatase 94 U/L (38-126); Anion Gap 13 mmol/L (8-16); Aspartate Amino Transferase 31 U/L (17-59); Bilirubin,Total 1.6 mg/dL (0.2-1.3); Blood Urea Nitrogen 44 mg/dL (9-20); Calcium 8.5 mg/dL (8.4-10.2); Carbon Dioxide 22 mmol/L (22-30); Chloride 100 mmol/L (98-107); Estimated Glomerular Filt Rate 51; Glucose 439 mg/dL (65-110); Potassium 4.6 mmol/L (3.4-5.0); Sodium 135 mmol/L (137-145)
[2021-08-24 17:00] LABS: NT Pro B Type Natriuretic Pept 26600 pg/mL (5-100); Troponin I < 0.012 ng/mL (0.000-0.034)
--- NOTE | 2021-08-24 17:04 | ED.SOB ---
HPI - SOB/Dyspnea General Chief Complaint: Shortness of Breath/Dyspnea Stated Complaint: SOB Time Seen by Provider: 08/24/21 16:04 Source: patient History of Present Illness HPI Narrative: 76 y/o male presents to the ER today for complaints of worsening shortness of breath. He has to sit up. He says that he is not really coughing or wheezing. No chest pain. He was just discharged from [facility] a week ago for CHF exacerbation. He is on oral lasix daily at home. He was started on home O2 when he was discharged from [facility]. He is also insulin dependent diabetic. He is not having increased leg swelling today. Related Data Home Medications Medication Instructions Recorded Confirmed aspirin 81 mg PO DAILY 11/06/20 11/06/20 carvedilol 25 mg PO BID 11/06/20 11/06/20 dorzolamide-timolol 1 drp OPHTHALMIC (EYE) BID 11/06/20 11/06/20 fluorometholone 1 drp RIGHT EYE BID 11/06/20 11/06/20 furosemide 40 mg PO DAILY 11/06/20 11/06/20 hydralazine 50 mg PO TID 11/06/20 11/06/20 isosorbide dinitrate 20 mg PO TID 11/06/20 11/06/20 losartan 25 mg PO DAILY 11/06/20 11/06/20 metformin 1,000 mg PO DAILY 11/06/20 11/06/20 polymyxin B sulf-trimethoprim 1 drp EACH EYE BID 11/06/20 11/06/20 potassium chloride 10 meq PO DAILY 11/06/20 11/06/20 rosuvastatin 20 mg PO HS 11/06/20 11/06/20 Allergies Allergy/AdvReac Type Severity Reaction Status Date / Time lisinopril Allergy Swelling Verified 11/05/20 22:44 Review of Systems Constitutional: Constitutional: Denies chills, Denies fatigue, Denies fever(s) and Denies weakness ENT: Denies sore throat Cardiovascular: Cardiovascular: Denies chest pain and Denies radiating jaw, neck or arm pain Respiratory: Respiratory: Denies chest congestion, Denies cough, Reports dyspnea and Denies wheezing Gastrointestinal: Gastrointestinal: Denies abdominal pain, Denies constipation, Denies diarrhea, Denies nausea and Denies vomiting Genitourinary: Genitourinary: Reports no additional male genitourinary complaints Musculoskeletal: Musculoskeletal: Denies back pain, Denies myalgias and Denies joint swelling Neurologic: Denies dizziness and Denies weakness Psychiatric: Psychiatric: Denies anxiety and Denies depression Endocrine: Endocrine: Denies fatigue Hematologic/Lymphatic: Hematologic/Lymphatic: Reports no additional hematologic/lymphatic complaints Allergic/Immunologic: Allergic/Immunologic: Reports no additional allergic/immunologic complaints PMFSH Past Medical History Medical History Congestive heart failure Deep venous thrombosis Glaucoma Hypertension Legally blind Type 2 diabetes mellitus Surgical History Surgical History History of orthopedic surgery Right hip pinning after fracture in the 1960s. Family History Family History Father Diabetes mellitus Acute myocardial infarction Hypertension Mother Congestive heart failure Hypertension Sibling Diabetes mellitus Acute myocardial infarction Agent orange exposure Social History Social History Social History: The patient lives in [place] with his . He is retired from the [employer]. Lifelong nonsmoker. No alcohol or illicit substance abuse. He designates his , Nelly Sarah, as his surrogate decision maker and he wishes to be a full code. Smoking packs per day: 0.5 Smoking cigarettes per day: 10.0 Years smoked: 10 Smoking pack-years: 5.00 Smoking status: Former smoker Tobacco type: cigarettes Second hand tobacco smoke exposure: No Alcohol intake: never Substance use: never Substance use type: does not use Gender identity (if verbalized by the patient): Male Sexual Orientation (if Verbalized by the Patient): Straight or Heterosexual Spiri
[2021-08-24] MEDS: NITROGLYCERIN OINTMENT 1 INCH DOSE TRANSDERM (17:30)
[2021-08-24] MEDS: FUROSEMIDE INJ 40 MG/4 ML VIAL IV PUSH (17:31)
[2021-08-24 18:00] LABS: Magnesium 2.4 mg/dL (1.6-2.3)
[2021-08-24] MEDS: INSULIN HUMAN REGULAR (*BKC) 100 UNITS/ML 7 UNITS IV PUSH (19:18)
[2021-08-24 19:47] LABS: SARS-CoV-2 RNA PCR Negative
--- NOTE | 2021-08-24 19:50 | PM.IMHP ---
H&P: HPI History of Present Illness Date/Time: 08/24/21 19:50 Chief Complaint: SHORTNESS OF BREATH. Narrative: 76-year-old male with past medical history significant for systolic heart failure status post biventricular AICD, blindness, type 2 diabetes mellitus, hypertension. Patient comes to the emergency room due to shortness of breath, patient denies any fevers, rigors, chills, no nausea, no vomiting, has PND and orthopnea, patient denies any fevers, rigors, chills, no chest pain. Usually gets his care at [facility]. Preliminary workup was significant for brain natriuretic peptide 26,600. Has bilateral lower extremity leg swelling. Patient has been admitted for further evaluation, management and treatment. Review of Systems Review of Systems: Shortness of breath, paroxysmal nocturnal dyspnea, orthopnea. Constitutional: Constitutional: Denies chills, Denies fatigue, Denies fever(s), Denies night sweats and Denies weakness Eyes: Comments: Patient is blind ENT: Denies dysphagia, Denies nasal congestion, Denies nasal discharge, Denies nasal obstruction and Denies odynophagia Cardiovascular: Cardiovascular: Denies chest pain, Reports irregular heart rhythm, Denies claudication, Reports leg edema, Denies radiating jaw, neck or arm pain, Denies palpitations, Reports dyspnea on exertion, Reports orthopnea and Reports paroxysmal nocturnal dyspnea Respiratory: Respiratory: Denies cough Gastrointestinal: Gastrointestinal: Denies abdominal pain, Denies dyspepsia, Denies heartburn, Denies diarrhea, Denies nausea and Denies vomiting Genitourinary: Genitourinary: Denies dysuria Musculoskeletal: Musculoskeletal: Denies arthralgias Integumentary/Breasts: Skin/Breast: Denies rash Neurologic: Denies focal weakness and Denies Sensory deficit (Neuro) Psychiatric: Psychiatric: Reports no additional psychiatric complaints and Reports as per HPI Endocrine: Endocrine: Denies cold intolerance, Denies fatigue, Denies flushing, Denies heat intolerance, Denies polyphagia, Denies polydipsia and Denies palpitations Hematologic/Lymphatic: Hematologic/Lymphatic: Reports no additional hematologic/lymphatic complaints and Reports as per HPI Allergic/Immunologic: Allergic/Immunologic: Reports no additional allergic/immunologic complaints and Reports as per HPI PMFSH Past Medical History Medical History Congestive heart failure Deep venous thrombosis Glaucoma Hypertension Legally blind Type 2 diabetes mellitus Surgical History Surgical History History of orthopedic surgery Right hip pinning after fracture in the 1960s. Family History Family History Father Diabetes mellitus Acute myocardial infarction Hypertension Mother Congestive heart failure Hypertension Sibling Diabetes mellitus Acute myocardial infarction Agent orange exposure Social History Social History Social History: The patient lives in [place] with his . He is retired from the [employer]. Lifelong nonsmoker. No alcohol or illicit substance abuse. He designates his , Nelly Sarah, as his surrogate decision maker and he wishes to be a full code. Smoking packs per day: 0.5 Smoking cigarettes per day: 10.0 Years smoked: 10 Smoking pack-years: 5.00 Smoking status: Never smoker Tobacco type: cigarettes Second hand tobacco smoke exposure: No Alcohol intake: former Substance use: never Substance use type: does not use Gender identity (if verbalized by the patient): Male Sexual Orientation (if Verbalized by the Patient): Straight or Heterosexual Spiritual care concerns: No Meds Home Medications and Allergies Home Medications Medication Instructions Recorded Confirmed Type aspirin 81 mg PO
[2021-08-24 20:36] LABS: Glucose Point of Care 301 mg/dl (65-105)
--- NOTE | 2021-08-24 21:39 | ADMGEN ---
This patient, Yesenia Sarah Sr., was admitted to Medical Room 346-01. Patient/family oriented to hospital policies and general routines including ID bracelet, bed and alarms, visiting hours, pain management, procedures, bathroom and other care routines, personal items, smoking policy, room service/diet, and visiting hours. Information on how to activate the Rapid Response Team has been discussed. Patient/Family are encouraged to report perceived risks to care and to ask questions if they do not understand what they are told or what they should do.
[2021-08-24 22:48] LABS: Glucose Point of Care 385 mg/dl (65-105)
[2021-08-24] MEDS: INSULIN ASPART (*BKC) 100 UNITS/ML SUB-Q (23:01)
[2021-08-25] VITALS (16 sets, daily range): BP systolic 108–143; BP diastolic 59–80; PULSE 56–91; RESP 18–46; TEMP 36.6–38.3; O2SAT 90–100
--- NOTE | 2021-08-25 | ECHO_ITS ---
Patient Info Name: Yesenia Sarah Age: 76 years : 1945 Gender: Male Ht: 68 in Wt: 164 lbs BSA: 1.90 m2 HR: 66 bpm BP: 114 / 72 mmHg Technical Quality: Fair Exam Date: 08/25/2021 10:19 AM Exam Location: [facility] Patient Status: Outpatient Admit Date: 08/24/2021 Staff Ordering Physician: Andrea Ng MD Beekeeper Farmer: Linh Mills RDCS Attending Provider: Cindy Naqvi MD Referring Physician: Hernandez VILLARREAL; Exam Type: CA echo doppler color flow Study Info Indications I50.9 - Heart failure, unspecified Complete two-dimensional, color flow and Doppler transthoracic echocardiogram is performed. Summary 1. Complete two-dimensional, color flow and Doppler transthoracic echocardiogram is performed. 2. Left ventricular systolic function is moderately reduced, estimated at 30-35%. Flat interventricular septum consistent with increased RV pressure load. 3. There is severely increased left ventricular wall thickness. 4. The left ventricular diastolic function is abnormal. 5. Right ventricular chamber dimension is moderately enlarged.Linear artifact consistent with pacemaker wire. 6. Right ventricular systolic function is reduced. 7. Right atrial chamber dimension is moderately enlarged. 8. Bowing of the interatrial septum to the left by 2D imaging. 9. There is trace aortic valve regurgitation. 10. There is mild aortic valve sclerosis. 11. There is mild mitral valve regurgitation. 12. There is mild tricuspid valve regurgitation. 13. Mild pulmonary hypertension, estimated pulmonary arterial systolic pressure is 39 mmHg. Left Ventricle Left ventricular chamber dimension is normal. Left ventricular systolic function is moderately reduced, estimated at 30-35%. Flat interventricular septum consistent with increased RV pressure load. There is severely increased left ventricular wall thickness. The left ventricular diastolic function is abnormal. Right Ventricle Right ventricular chamber dimension is moderately enlarged.Linear artifact consistent with pacemaker wire. Right ventricular systolic function is reduced. Left Atria Left atrial chamber dimension is normal. Right Atria Right atrial chamber dimension is moderately enlarged. Atrial Septum Bowing of the interatrial septum to the left by 2D imaging. Aortic Valve The aortic valve is trileaflet. There is mild aortic valve sclerosis. There is no aortic valve stenosis. There is trace aortic valve regurgitation. Pulmonic Valve The pulmonic valve is normal. There is no pulmonic valve stenosis. There is no pulmonic regurgitation. Mitral Valve The mitral valve has normal leaflets. There is no mitral valve stenosis. There is mild mitral valve regurgitation. Tricuspid Valve The tricuspid valve leaflets are normal. There is no significant tricuspid valve stenosis. There is mild tricuspid valve regurgitation. Mild pulmonary hypertension, estimated pulmonary arterial systolic pressure is 39 mmHg. Pericardium/Pleural The pericardium appears normal. There is no pericardial effusion. Inferior Vena Cava Normal inferior vena cava with <50% collapse upon inspiration consistent with Empty right atrial pressure, 10 mmHg. Aorta The aortic root size at the sinus of Valsalva is normal. The prox ascending aorta size is normal. Left Ventricular Outflow Tract Name Va
[2021-08-25 00:46] LABS: Glucose Point of Care 269 mg/dl (65-105)
[2021-08-25] MEDS: LORazepam INJ (*CRX) 2 MG/ML VIAL 1 MG IV PUSH (04:34)
[2021-08-25 07:26] LABS: Glucose Point of Care 248 mg/dl (65-105)
[2021-08-25] MEDS: ENOXAPARIN 40 MG/0.4 ML SYRINGE SUB-Q (08:51)
[2021-08-25] MEDS: FUROSEMIDE INJ 40 MG/4 ML VIAL IV PUSH ×3 (08:51→18:36)
[2021-08-25] MEDS: INSULIN GLARGINE (*BKC) 100 UNITS/ML 10 UNITS SUB-Q (09:42)
[2021-08-25] MEDS: ALPRAZolam (*CRX) 0.5 MG TABLET PO ×2 (09:42→23:15)
[2021-08-25 11:33] LABS: Glucose Point of Care 272 mg/dl (65-105)
[2021-08-25] MEDS: IPRATROPIUM BR 0.02% INH SOLN 0.5 MG/2.5 ML VIAL INHALATION (11:36)
[2021-08-25] MEDS: ALBUTEROL SULFATE NEB 2.5 MG/3 ML INH 1.25 MG INHALATION (11:37)
[2021-08-25 11:39] LABS: Alveolar/Arterial O2 Gradient 156.6 mmHg; Base Excess ABG 2.1 mEq/l (+/-2.0); Fractional Inspired Oxygen 36 %; HCO3 ABG 25.3 mEq/l (22.0-26.0); Oxygen Content ABG 16.7 %vol (16.0-22.0); Oxygen Saturation ABG 92.5 % (95.0-100.0); Oxyhemoglobin 89.1 % THb (90.0-100.0); PCO2 ABG 35.1 mmHg (35.0-45.0); PO2 ABG 59.4 mmHg (80.0-100.0); PO2 FiO2 Ratio Arterial Blood 1.65 %; Total Hemoglobin 13.3 g/dL (12.0-18.0); pH ABG 7.476 (7.350-7.450)
[2021-08-25 11:48] LABS: Device NASAL CANNULA; Modified Allen's Test Pass; Site Drawn RIGHT RADIAL
[2021-08-25] MEDS: INSULIN ASPART (*BKC) 100 UNITS/ML SUB-Q (12:40)
[2021-08-25 14:18] LABS: Hemoglobin A1C 7.9 % (<5.7)
--- NOTE | 2021-08-25 14:48 | PM.EVENT ---
Event Note Event Note Event Note: Requested by Dr. Naqvi evaluate patient. Patient admitted with CHF exacerbation and chest x-ray shows pulmonary edema and left pleural effusion. ABG on 5 L nasal cannula reviewed and shows hypoxia with hyperventilation. Patient on exam is alert oriented x3 in no respiratory distress but is mildly tachypneic. On exam he has bibasilar crackles with no wheezing. No use of accessory muscles. He states he does have shortness of breath which started 2-3 days ago. He also complains of orthopnea and PND. Denies any cough chest pain nausea or vomiting. He is maintaining adequate saturation on 5 L nasal cannula and also has adequate blood pressure. I discussed option of trying CPAP for few hours for increased work of breathing with the patient is willing to give it a try. He received Lasix already has a scheduled thoracentesis on the left side for tomorrow. Discussed with RT and requested it trial of CPAP at 8. Discussed with Dr. Naqvi. Patient at this time can stay on the unit and does not need to be transferred to ICU. Dr. Naqvi will continue to manage patient at this time. Tested to call back if patient's condition changes or any further assistance is needed.
[2021-08-25 15:14] LABS: INR 1.3; Prothrombin Time 15.5 Seconds (11.1-14.7)
[2021-08-25 15:22] LABS: Albumin Level 3.5 g/dL (3.5-5.1); Amylase 42 U/L (30-110); Bilirubin,Total 1.1 mg/dL (0.2-1.3); Cholesterol 125 mg/dL (0-200); Lactate Dehydrogenase 737 U/L (313-618); Triglycerides 64 mg/dL (<150)
--- NOTE | 2021-08-25 15:54 | PM.IMPN ---
Progress Note: A&P Assessment and Plan (1) Acute exacerbation of CHF (congestive heart failure): Qualifiers: Heart failure type: unspecified Qualified Code(s): I50.9 - Heart failure, unspecified Code(s): I50.9 - Heart failure, unspecified Status: Acute Assessment and Plan: Will repeat an echocardiogram in a.m. Aggressive diuresis Daily intake and output Continue to monitor 08/25/2021 interval history: patient is 76-year-old male presented with complaint of shortness of breath is significantly elevated BNP 26,600 most likely patient had acute on chronic systolic congestive Heart failure patient is being diuresed with IV Lasix 40 mg b.i.d. however patient continued to shortness of breath patient patient was given extra Lasix 40 mg IV times, patient also is found to have left-sided moderate pleural effusion unable to do thoracentesis today scheduled for tomorrow, with continues complaint of shortness of breath patient was seen by berry grower recommended CPAP will continue to monitor, patient had a cardiac echo ejection fraction is 35%, will do cardiac enzymes and will consult reservation agent further recommendation. 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 Fall precautions (4) Biventricular ICD (implantable cardioverter-defibrillator) in place: Code(s): Z95.810 - Presence of automatic (implantable) cardiac defibrillator Status: Acute Assessment and Plan: Continue to monitor Subjective Date/time seen: 08/25/21 15:54 Chief Complaint: SHORTNESS OF BREATH. Narrative: 76-year-old male with past medical history significant for systolic heart failure status post biventricular AICD, blindness, type 2 diabetes mellitus, hypertension. Patient comes to the emergency room due to shortness of breath, patient denies any fevers, rigors, chills, no nausea, no vomiting, has PND and orthopnea, patient denies any fevers, rigors, chills, no chest pain. Usually gets his care at [facility] system. Preliminary workup was significant for brain natriuretic peptide 26,600. Has bilateral lower extremity leg swelling. Patient has been admitted for further evaluation, management and treatment. 08/25/2021 interval history: patient is 76-year-old male presented with complaint of shortness of breath is significantly elevated BNP 26,600 most likely patient had acute on chronic systolic congestive Heart failure patient is being diuresed with IV Lasix 40 mg b.i.d. however patient continued to shortness of breath patient patient was given extra Lasix 40 mg IV times, patient also is found to have left-sided moderate pleural effusion unable to do thoracentesis today scheduled for tomorrow, with continues complaint of shortness of breath patient was seen by berry grower recommended CPAP will continue to monitor, patient had a cardiac echo ejection fraction is 35%, will do cardiac enzymes and will consult reservation agent further recommendation. patient is blind in both eyes Review of Systems Review of Systems: All systems reviewed & are unremarkable except as noted in HPI and below Exam Narrative: Patient is comfortable, NAD HEENT: patient is blind in both eyes LUNGS: bilateral fair air entry with rales and rhonchi HEART: RR S1S2 ABD: not distended Lower extremities: no edema SKIN: nonjaundiced Neuro: grossly intact. Objective Data Vital Signs Vital Signs: Vital Signs - 24 hr 08/24/21 16:41 08/24/21 16:45 08/24/21 16:52 Temperature Pulse Rate 62 64 66 Respiratory Rate 39 H 40 H 39 H Blood Pressure 123/69 Pulse Oximetry 90 90 91
[2021-08-25 16:53] LABS: Glucose Point of Care 185 mg/dl (65-105)
[2021-08-25 20:09] LABS: Glucose Point of Care 149 mg/dl (65-105)
[2021-08-25] MEDS: POLYMYXIN/TRIMETHOPRIM OPHTH 10 ML DROPS 1 DROP EACH EYE (21:04)
[2021-08-25] MEDS: DORZOLAMIDE/TIMOLOL OPHTH SOL 10 ML BOTTLE 1 DROP EACH EYE (21:04)
[2021-08-26] VITALS (21 sets, daily range): BP systolic 102–142; BP diastolic 65–91; PULSE 40–87; RESP 14–37; TEMP 36.3–36.6; O2SAT 92–100
[2021-08-26 01:33] LABS: Alveolar/Arterial O2 Gradient 319.6 mmHg; Base Excess ABG 1.9 mEq/l (+/-2.0); Fractional Inspired Oxygen 60 %; HCO3 ABG 25.4 mEq/l (22.0-26.0); Oxygen Content ABG 17.1 %vol (16.0-22.0); Oxygen Saturation ABG 94.7 % (95.0-100.0); Oxyhemoglobin 92.3 % THb (90.0-100.0); PCO2 ABG 36.3 mmHg (35.0-45.0); PO2 ABG 68.3 mmHg (80.0-100.0); PO2 FiO2 Ratio Arterial Blood 1.14 %; Total Hemoglobin 13.2 g/dL (12.0-18.0); pH ABG 7.463 (7.350-7.450)
[2021-08-26 01:35] LABS: Device HIGH FLOW NASAL CANN; Modified Allen's Test Pass; Site Drawn RIGHT BRACHIAL
[2021-08-26 06:26] LABS: Hematocrit 37.7 % (42.0-52.0); Hemoglobin 12.3 g/dL (14.0-18.0); Mean Corpuscular HGB Conc 32.6 g/dl (32-36); Mean Corpuscular Hemoglobin 30.2 pg (26-34); Mean Corpuscular Volume 92.6 fl (80-100); Platelet Count Result 207 k/mm3 (150-375); Red Blood Count 4.07 M/mm3 (4.6-6.20); Red Cell Distribution Width 15.5 % (11.5-14.5); White Blood Count 7.4 K/mm3 (4.5-10.0)
[2021-08-26 06:38] LABS: Anion Gap 10 mmol/L (8-16); Blood Urea Nitrogen 45 mg/dL (9-20); Calcium 8.3 mg/dL (8.4-10.2); Carbon Dioxide 28 mmol/L (22-30); Chloride 102 mmol/L (98-107); Estimated CRCL calculation 33 ml/min; Estimated Glomerular Filt Rate 48; Glucose 167 mg/dL (65-110); Magnesium 2.5 mg/dL (1.6-2.3); Sodium 140 mmol/L (137-145)
[2021-08-26 08:07] LABS: Glucose Point of Care 165 mg/dl (65-105)
[2021-08-26] MEDS: POLYMYXIN/TRIMETHOPRIM OPHTH 10 ML DROPS 1 DROP EACH EYE ×2 (09:24→20:14)
[2021-08-26] MEDS: METOPROLOL SUCCINATE EXT REL 100 MG TABCR PO (09:24)
[2021-08-26] MEDS: LOSARTAN POTASSIUM 25 MG TABLET PO (09:24)
[2021-08-26] MEDS: FUROSEMIDE INJ 40 MG/4 ML VIAL IV PUSH ×2 (09:24→16:57)
[2021-08-26] MEDS: LATANOPROST 0.005% OP SOLN 2.5 ML BTL 1 DROP EACH EYE (09:24)
[2021-08-26] MEDS: DORZOLAMIDE/TIMOLOL OPHTH SOL 10 ML BOTTLE 1 DROP EACH EYE ×2 (09:24→20:14)
[2021-08-26] MEDS: ALPRAZolam (*CRX) 0.5 MG TABLET PO ×2 (10:55→23:20)
[2021-08-26 12:53] LABS: Glucose Point of Care 136 mg/dl (65-105)
--- NOTE | 2021-08-26 13:12 | PM.CNCAR ---
Assessment and Plan Assessment and plan (1) Biventricular ICD (implantable cardioverter-defibrillator) in place: Code(s): Z95.810 - Presence of automatic (implantable) cardiac defibrillator <ANAHI Muñoz - Last Filed: 08/26/21 15:10> Status: Acute <ANAHI Muñoz - Last Filed: 08/26/21 15:10> Assessment and Plan: [facility]. Records have been requested. <ANAHI Muñoz - Last Filed: 08/26/21 15:10> (2) Acute exacerbation of CHF (congestive heart failure): Qualifiers: Heart failure type: unspecified Qualified Code(s): I50.9 - Heart failure, unspecified <ANAHI Muñoz - Last Filed: 08/26/21 15:10> Code(s): I50.9 - Heart failure, unspecified <ANAHI Muñoz - Last Filed: 08/26/21 15:10> Status: Acute <ANAHI Muñoz - Last Filed: 08/26/21 15:10> Assessment and Plan: Worsening shortness of breath over the past 3 weeks with bilateral pleural effusions noted on chest x-ray. He is s/p thorscentesis today with 1L fluid evacuated. Continue diuresis with furosemide 40mg IV b.i.d. for today. Continue GDMT with losartan and metoprolol. Unable to use ARNI because he has an JUSTIN allergy. Could optimize medical therapy with addition of spirinolactone when kidney function improves. Monitor renal function and electrolytes with serial BMP Low sodium diet Accurate I&O <ANAHI Muñoz - Last Filed: 08/26/21 15:10> (3) Hypertension: Code(s): I10 - Essential (primary) hypertension <ANAHI Muñoz - Last Filed: 08/26/21 15:10> Status: Acute <ANAHI Muñoz - Last Filed: 08/26/21 15:10> Assessment and Plan: Controlled <ANAHI Muñoz - Last Filed: 08/26/21 15:10> (4) NSVT (nonsustained ventricular tachycardia): Code(s): I47.2 - Ventricular tachycardia <Annmarie Gracy ANAHI Vanessa - Last Filed: 08/26/21 15:10> Status: Acute <Annmarie AANAHI Pillai - Last Filed: 08/26/21 15:10> Assessment and Plan: Several short runs of NSVT noted on telemetry. K+ WNL. Check magnesium. Has ICD in place. <ANAHI Muñoz - Last Filed: 08/26/21 15:10> Additional Plan Attending Addendum: I have personally seen and examined this patient at bedside. I agree with the above documentation and plan of care as outlined. -patient is a 76-year-old male cared for the [facility] with a history of chronic heart failure with reduced ejection fraction, biventricular ICD, type 2 diabetes mellitus, hypertension who presented with several weeks progressive shortness of breath. He is found to be in acute decompensated heart failure with pleural effusions BNP greater than 26,000 admitted for diuresis. He underwent thoracentesis today with 1 L fluid removal. He is diuresed well with IV Lasix. He was given Xanax prior to thoracentesis and has been more lethargic this afternoon. At the time of my interview he is arousable but minimally so but in no apparent distress nods no to chest pain, shortness of breath. When asked if he feels okay he nodded yes. No further history able to be obtained from the patient directly at this time. Exam: NAD, lethargic, lying on his right side no apparent distress but mildly tachypneic arousable No JVD Lungs diminished breath sounds at the bases faint crackles Cardio RRR, S1/S2 Abd slightly distended, soft, NT/ND, +BS Ext no edema, clubbing, or cyanosis palpable subcutaneous device left anterior chest wall Plan of Care: Aeration improved status post thoracentesis. Avoid sedatives. Continue IV Lasix, monitor renal function electrolytes closely. Monitor BP. Continue telemetry for now. He has some nonsustained VT on telemetry overnight. Continue supportive medical therapy. Severe LV systolic dysfunction EF 30%. Continue Toprol XL, Jardiance. Unable to optimize further be on losartan
[2021-08-26 13:29] LABS: Pleural fluid source Pleural fluid
[2021-08-26 13:30] LABS: Appearance Pleural Fluid Cloudy (Clear); Color Pleural Fluid Other (Colorless)
[2021-08-26 13:31] LABS: Lymphocytes Pleural Fluid 15 %; Macrophages Pleural Fluid 13 %; Monocytes Pleural Fluid 1 %; Neutrophils Pleural Fluid 13 % (0-25); Other Cells Pleural Fluid 1 %
[2021-08-26 13:32] LABS: Mesothelial Cells Pleural Flui 57 %
--- NOTE | 2021-08-26 16:33 | PM.IMPN ---
Progress Note: A&P Assessment and Plan (1) Acute exacerbation of CHF (congestive heart failure): Qualifiers: Heart failure type: unspecified Qualified Code(s): I50.9 - Heart failure, unspecified Code(s): I50.9 - Heart failure, unspecified Status: Acute Assessment and Plan: Will repeat an echocardiogram in a.m. Aggressive diuresis Daily intake and output Continue to monitor 08/25/2021 interval history: patient is 76-year-old male presented with complaint of shortness of breath is significantly elevated BNP 26,600 most likely patient had acute on chronic systolic congestive Heart failure patient is being diuresed with IV Lasix 40 mg b.i.d. however patient continued to shortness of breath patient patient was given extra Lasix 40 mg IV times, patient also is found to have left-sided moderate pleural effusion unable to do thoracentesis today scheduled for tomorrow, with continues complaint of shortness of breath patient was seen by manager quantitative recommended CPAP will continue to monitor, patient had a cardiac echo ejection fraction is 35%, will do cardiac enzymes and will consult program director scouting further recommendation. patient is blind in both eyes. 08/26/2021 interval history: patient is 76-year-old male presented with complaint of shortness of breath is significantly elevated BNP 26,600 most likely patient had acute on chronic systolic congestive Heart failure patient is being diuresed with IV Lasix 40 mg b.i.d. however on 08/25 patient continued to shortness of breath, patient was given extra Lasix 40 mg IV 1 times, patient also is found to have left-sided moderate pleural effusion unable to do thoracentesis, scheduled for today, patient continues to complaint of shortness of breath patient was seen by manager quantitative on 08/25 recommended CPAP will continue to monitor, patient had a cardiac echo ejection fraction is 35%, 3 sets of cardiac enzymes are negative patient is seen program director scouting recommended to continue present managed, once clinically stable will have a PT OT evaluate the patient, patient is blind in both eyes (2) Hypertension: Code(s): I10 - Essential (primary) hypertension Status: Acute Assessment and Plan: Continue home meds Continue to monitor (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 Fall precautions (4) Biventricular ICD (implantable cardioverter-defibrillator) in place: Code(s): Z95.810 - Presence of automatic (implantable) cardiac defibrillator Status: Acute Assessment and Plan: Continue to monitor Subjective Date/time seen: 08/26/21 16:33 08/26/2021 interval history: patient is 76-year-old male presented with complaint of shortness of breath is significantly elevated BNP 26,600 most likely patient had acute on chronic systolic congestive Heart failure patient is being diuresed with IV Lasix 40 mg b.i.d. however on 08/25 patient continued to shortness of breath, patient was given extra Lasix 40 mg IV 1 times, patient also is found to have left-sided moderate pleural effusion unable to do thoracentesis, scheduled for today, patient continues to complaint of shortness of breath patient was seen by manager quantitative on 08/25 recommended CPAP will continue to monitor, patient had a cardiac echo ejection fraction is 35%, 3 sets of cardiac enzymes are negative patient is seen program director scouting recommended to continue present managed, once clinically stable will have a PT OT evaluate the patient, patient is blind in both eyes Review of Systems Review of Systems: All systems reviewed & are unremarkable except as noted in HPI and below Exam Narrative: Patient is comfortable, NAD HEENT: patient is blind in both eyes LUNGS: bilateral fair air entry with rales and rhonchi HEART: RR
[2021-08-26 16:41] LABS: Glucose Point of Care 181 mg/dl (65-105)
[2021-08-26 20:55] LABS: Glucose Point of Care 283 mg/dl (65-105)
[2021-08-27] VITALS (13 sets, daily range): BP systolic 94–112; BP diastolic 42–58; PULSE 49–60; RESP 14–30; TEMP 36.1–36.2; O2SAT 92–100
--- NOTE | 2021-08-27 02:31 | PCRCNOTE ---
Pt. was originally wearing CPAP due to shortness of breath and fluid overload. BIPAP/ CPAP is not indicated at this time.
[2021-08-27 05:06] LABS: Alveolar/Arterial O2 Gradient 247.1 mmHg; Base Excess ABG -2.5 mEq/l (+/-2.0); Fractional Inspired Oxygen 100 %; Oxygen Saturation ABG 99.9 % (95.0-100.0); Oxyhemoglobin 98.6 % THb (90.0-100.0); PCO2 ABG 28.7 mmHg (35.0-45.0); PO2 ABG 437.2 mmHg (80.0-100.0); PO2 FiO2 Ratio Arterial Blood 4.37 %; Total Hemoglobin 13.6 g/dL (12.0-18.0); pH ABG 7.461 (7.350-7.450)
[2021-08-27 05:07] LABS: Device NON-INVASIVE VENT; Modified Allen's Test Pass; Site Drawn LEFT BRACHIAL
[2021-08-27 05:08] LABS: Non-Invasive Expiratory Pressure 10 CMH2O; Non-Invasive Inspiratory Pressure 16 CMH2O; Non-Invasive Vent Rate 15 /MIN
[2021-08-27 06:58] LABS: Hematocrit 42.4 % (42.0-52.0); Hemoglobin 13.5 g/dL (14.0-18.0); Mean Corpuscular HGB Conc 31.8 g/dl (32-36); Mean Corpuscular Hemoglobin 30.3 pg (26-34); Mean Corpuscular Volume 95.3 fl (80-100); Mean Platelet Volume 11.2 fl (7.4-10.4); Platelet Count Result 241 k/mm3 (150-375); Red Blood Count 4.45 M/mm3 (4.6-6.20); Red Cell Distribution Width 16.1 % (11.5-14.5); White Blood Count 8.3 K/mm3 (4.5-10.0)
--- NOTE | 2021-08-27 09:12 | PM.PNCARD ---
Progress Note: A&P Assessment and Plan (1) Biventricular ICD (implantable cardioverter-defibrillator) in place: Code(s): Z95.810 - Presence of automatic (implantable) cardiac defibrillator Status: Acute Assessment and Plan: [facility] to [facility]. Records have been requested. (2) Acute exacerbation of CHF (congestive heart failure): Qualifiers: Heart failure type: unspecified Qualified Code(s): I50.9 - Heart failure, unspecified Code(s): I50.9 - Heart failure, unspecified Status: Acute Assessment and Plan: Worsening shortness of breath over the past 3 weeks with bilateral pleural effusions noted on chest x-ray. He is s/p thorscentesis today with 1L fluid evacuated. Continue diuresis but will reduce furosemide down to twenty mg IV b.i.d. Continue GDMT with losartan and metoprolol. Unable to use ARNI because he has an JUSTIN allergy. Could optimize medical therapy with addition of spirinolactone when kidney function improves. Monitor renal function and electrolytes with serial BMP Low sodium diet Accurate I&O I suspect he will need a right-sided thoracentesis also. (3) Hypertension: Code(s): I10 - Essential (primary) hypertension Status: Acute Assessment and Plan: Controlled (4) NSVT (nonsustained ventricular tachycardia): Code(s): I47.2 - Ventricular tachycardia Status: Acute Assessment and Plan: Several short runs of NSVT noted on telemetry. Has ICD in place. Subjective Date/time seen: 08/27/21 09:12 Interval history: 76-year-old admitted for shortness of breath. Date of service 08/27/2021: Complains of constipation. No chest pain. Is short of breath with activity. Review of Systems Review of Systems: All systems reviewed & are unremarkable except as noted in HPI and below Constitutional: Constitutional: Reports weakness Eyes: Eyes: Denies blurry vision ENT: Reports Normal hearing present Cardiovascular: Cardiovascular: Denies chest pain Respiratory: Respiratory: Reports dyspnea Gastrointestinal: Gastrointestinal: Denies abdominal pain Genitourinary: Genitourinary: Denies dysuria Musculoskeletal: Musculoskeletal: Denies neck pain Integumentary/Breasts: Skin/Breast: Denies dry skin Psychiatric: Psychiatric: Denies anxiety Endocrine: Endocrine: Denies change in body appearance Hematologic/Lymphatic: Hematologic/Lymphatic: Denies easy bleeding Allergic/Immunologic: Allergic/Immunologic: Denies GI upset with certain foods Exam Const: General: comfortable and no acute distress Other: somnolent HENMT: Head: normal to inspection Eyes: General: appearance normal, both eyes and all related structures Neck: Neck: supple and no JVD Resp: Auscultation: not clear to auscultation bilaterally and rales Other: Right base decreased breath Cardio: Rate: regular rate Rhythm: regular rhythm Heart sounds: no murmurs GI: Auscultation: normal bowel sounds Skin: General skin exam: normal color Wounds: no wounds Extrem: General: normal to inspection, no edema and no pedal edema Psych: Mental Status: mental status grossly normal Objective Data Vital Signs Vital Signs: Vital Signs - 24 hr 08/26/21 09:20 08/26/21 09:24 08/26/21 11:24 Temperature Pulse Rate 78 66 Respiratory Rate 36 H Blood Pressure 113/91 H Pulse Oximetry 93 97 08/26/21 12:00 08/26/21 12:05 08/26/21 16:00 Temperature 36.4 C L Pulse Rate 63 64 62 Respiratory Rate 30 H 16 Blood Pressure 102/65 103/72 Pulse Oximetry 98 95 08/26/21 19:37 08/26/21 20:00 08/26/21 20:21 Temperature 36.6 C Pulse Rate 63 61 Respiratory Rate 18 Blood Pressure 104/72 Pulse Oximetry 93 98 08/27/21 00:00 08/27/21 03:45 08/27/21 04:00 Temperature Pulse Rate 57 L 54 L Respiratory Rate 30 H Blood Pressure Pulse Oximetry 98 08/27/21 05:13 08/27/21 05:19 Temper
[2021-08-27] MEDS: LATANOPROST 0.005% OP SOLN 2.5 ML BTL 1 DROP EACH EYE (09:52)
[2021-08-27] MEDS: polyethylene glycoL 3350 17 GM POWD.PACK PO (09:52)
[2021-08-27] MEDS: FUROSEMIDE INJ 40 MG/4 ML VIAL 20 MG IV PUSH ×2 (09:53→16:41)
[2021-08-27] MEDS: POLYMYXIN/TRIMETHOPRIM OPHTH 10 ML DROPS 1 DROP EACH EYE ×2 (09:53→19:50)
[2021-08-27] MEDS: POTASSIUM CHLORIDE 10 MEQ TABLET.ER 20 MEQ PO (09:53)
[2021-08-27] MEDS: MULTIVITAMINS /C LUTEIN (CENTRUM SILVER) TABLET *BKC 1 TAB BY MOUTH (09:53)
[2021-08-27] MEDS: OMEGA 3 POLYUNSAT FATTY ACIDS 1 GM CAP PO (09:53)
[2021-08-27] MEDS: ESCITALOPRAM OXALATE 10 MG TABLET 20 MG PO (09:53)
[2021-08-27] MEDS: DORZOLAMIDE/TIMOLOL OPHTH SOL 10 ML BOTTLE 1 DROP EACH EYE ×2 (09:53→19:50)
[2021-08-27] MEDS: EMPAGLIFLOZIN 12.5 MG TABLET BY MOUTH (09:53)
[2021-08-27] MEDS: INSULIN GLARGINE (*BKC) 100 UNITS/ML 12 UNITS SUB-Q (09:59)
[2021-08-27] MEDS: INSULIN ASPART (*BKC) 100 UNITS/ML SUB-Q ×2 (11:26→16:43)
[2021-08-27 11:29] LABS: Glucose Point of Care 312 mg/dl (65-105)
[2021-08-27 11:35] LABS: Anion Gap 16 mmol/L (8-16); Blood Urea Nitrogen 62 mg/dL (9-20); Calcium 8.4 mg/dL (8.4-10.2); Carbon Dioxide 21 mmol/L (22-30); Chloride 98 mmol/L (98-107); Estimated CRCL calculation 23 ml/min; Estimated Glomerular Filt Rate 31; Glucose 297 mg/dL (65-110); Potassium 4.9 mmol/L (3.4-5.0); Sodium 135 mmol/L (137-145)
--- NOTE | 2021-08-27 12:57 | PM.IMPN ---
Progress Note: A&P Assessment and Plan (1) Acute exacerbation of CHF (congestive heart failure): Qualifiers: Heart failure type: unspecified Qualified Code(s): I50.9 - Heart failure, unspecified Code(s): I50.9 - Heart failure, unspecified Status: Acute Assessment and Plan: Will repeat an echocardiogram in a.m. Aggressive diuresis Daily intake and output Continue to monitor 08/25/2021 interval history: patient is 76-year-old male presented with complaint of shortness of breath is significantly elevated BNP 26,600 most likely patient had acute on chronic systolic congestive Heart failure patient is being diuresed with IV Lasix 40 mg b.i.d. however patient continued to shortness of breath patient patient was given extra Lasix 40 mg IV times, patient also is found to have left-sided moderate pleural effusion unable to do thoracentesis today scheduled for tomorrow, with continues complaint of shortness of breath patient was seen by assistant warehouse manager recommended CPAP will continue to monitor, patient had a cardiac echo ejection fraction is 35%, will do cardiac enzymes and will consult engineer internship further recommendation. patient is blind in both eyes. 08/26/2021 interval history: patient is 76-year-old male presented with complaint of shortness of breath is significantly elevated BNP 26,600 most likely patient had acute on chronic systolic congestive Heart failure patient is being diuresed with IV Lasix 40 mg b.i.d. however on 08/25 patient continued to shortness of breath, patient was given extra Lasix 40 mg IV 1 times, patient also is found to have left-sided moderate pleural effusion unable to do thoracentesis, scheduled for today, patient continues to complaint of shortness of breath patient was seen by assistant warehouse manager on 08/25 recommended CPAP will continue to monitor, patient had a cardiac echo ejection fraction is 35%, 3 sets of cardiac enzymes are negative patient is seen engineer internship recommended to continue present managed, once clinically stable will have a PT OT evaluate the patient, patient is blind in both eyes. 08/27/2021 interval history: patient is 76-year-old male presented with complaint of shortness of breath is significantly elevated BNP 26,600 most likely patient had acute on chronic systolic congestive Heart failure patient is being diuresed with IV Lasix 40 mg b.i.d. however on 08/25 patient continued to shortness of breath, patient was given extra Lasix 40 mg IV 1 times, patient also is found to have left-sided moderate pleural effusion which is chronic and right sided pleural on 08/26 patient had 1L fluid was evacuated, ob 08/25 patient continued to complaint of shortness of breath patient was seen by assistant warehouse manager on 08/25 recommended CPAP will continue to monitor, patient had a cardiac echo ejection fraction is 35%, 3 sets of cardiac enzymes are negative patient was seen engineer internship recommended to continue present managed, today will place the patient on fluid restriction 1200 cc per day will continue to monitor, once clinically stable will have a PT OT evaluate the patient, patient is blind in both eyes (2) Hypertension: Code(s): I10 - Essential (primary) hypertension Status: Acute Assessment and Plan: Continue home meds Continue to monitor (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 Fall precautions (4) Biventricular ICD (implantable cardioverter-defibrillator) in place: Code(s): Z95.810 - Presence of automatic (implantable) cardiac defibrillator Status: Acute Assessment and Plan: Continue to monitor Subjective Date/time seen: 08/27/21 12:57 08/27/2021 interval history: patient is 76-year-old male presented with complaint of shortness of breath is significantly elevate
[2021-08-27 16:29] LABS: Glucose Point of Care 316 mg/dl (65-105)
[2021-08-27] MEDS: ALPRAZolam (*CRX) 0.5 MG TABLET PO (19:50)
[2021-08-27 21:45] LABS: Glucose Point of Care 259 mg/dl (65-105)
[2021-08-28] VITALS (11 sets, daily range): BP systolic 93–104; BP diastolic 51–71; PULSE 50–55; RESP 14–24; TEMP 36.3–36.6; O2SAT 94–100
[2021-08-28 07:09] LABS: Hematocrit 40.4 % (42.0-52.0); Hemoglobin 12.9 g/dL (14.0-18.0); Mean Corpuscular HGB Conc 31.9 g/dl (32-36); Mean Corpuscular Hemoglobin 29.9 pg (26-34); Mean Corpuscular Volume 93.5 fl (80-100); Mean Platelet Volume 10.9 fl (7.4-10.4); Platelet Count Result 212 k/mm3 (150-375); Red Blood Count 4.32 M/mm3 (4.6-6.20); Red Cell Distribution Width 15.9 % (11.5-14.5); White Blood Count 7.9 K/mm3 (4.5-10.0)
[2021-08-28 07:32] LABS: Anion Gap 8 mmol/L (8-16); Blood Urea Nitrogen 76 mg/dL (9-20); Calcium 7.9 mg/dL (8.4-10.2); Carbon Dioxide 26 mmol/L (22-30); Chloride 100 mmol/L (98-107); Estimated CRCL calculation 22 ml/min; Estimated Glomerular Filt Rate 29; Glucose 211 mg/dL (65-110); Sodium 134 mmol/L (137-145)
[2021-08-28 07:55] LABS: Glucose Point of Care 206 mg/dl (65-105)
[2021-08-28] MEDS: POTASSIUM CHLORIDE 10 MEQ TABLET.ER 20 MEQ PO (09:17)
[2021-08-28] MEDS: ESCITALOPRAM OXALATE 10 MG TABLET 20 MG PO (09:17)
[2021-08-28] MEDS: LOSARTAN POTASSIUM 25 MG TABLET PO (09:17)
[2021-08-28] MEDS: FUROSEMIDE INJ 40 MG/4 ML VIAL 20 MG IV PUSH (09:18)
[2021-08-28] MEDS: MULTIVITAMINS /C LUTEIN (CENTRUM SILVER) TABLET *BKC 1 TAB BY MOUTH (09:18)
[2021-08-28] MEDS: METOPROLOL SUCCINATE EXT REL 100 MG TABCR PO (09:18)
[2021-08-28] MEDS: OMEGA 3 POLYUNSAT FATTY ACIDS 1 GM CAP PO (09:18)
[2021-08-28] MEDS: EMPAGLIFLOZIN 12.5 MG TABLET BY MOUTH (09:18)
[2021-08-28] MEDS: INSULIN GLARGINE (*BKC) 100 UNITS/ML 12 UNITS SUB-Q (09:24)
[2021-08-28] MEDS: INSULIN ASPART (*BKC) 100 UNITS/ML SUB-Q ×3 (09:24→16:41)
[2021-08-28] MEDS: DORZOLAMIDE/TIMOLOL OPHTH SOL 10 ML BOTTLE 1 DROP EACH EYE ×2 (09:25→20:36)
[2021-08-28] MEDS: POLYMYXIN/TRIMETHOPRIM OPHTH 10 ML DROPS 1 DROP EACH EYE ×2 (09:25→20:36)
[2021-08-28] MEDS: LATANOPROST 0.005% OP SOLN 2.5 ML BTL 1 DROP EACH EYE (09:26)
[2021-08-28] MEDS: polyethylene glycoL 3350 17 GM POWD.PACK PO (09:26)
--- NOTE | 2021-08-28 09:33 | PM.PNCARD ---
Progress Note: A&P Assessment and Plan (1) Biventricular ICD (implantable cardioverter-defibrillator) in place: Code(s): Z95.810 - Presence of automatic (implantable) cardiac defibrillator Status: Acute Assessment and Plan: [facility] Appears to be functioning normally. Records have been requested. (2) Acute exacerbation of CHF (congestive heart failure): Qualifiers: Heart failure type: unspecified Qualified Code(s): I50.9 - Heart failure, unspecified Code(s): I50.9 - Heart failure, unspecified Status: Acute Assessment and Plan: Worsening shortness of breath over the past 3 weeks with bilateral pleural effusions noted on chest x-ray. He is s/p thorscentesis today with 1L fluid evacuated. Will hold furosemide today because of acute on chronic renal failure. Also hold potassium Continue GDMT with losartan and metoprolol. Unable to use ARNI because he has an JUSTIN allergy. Could optimize medical therapy with addition of spirinolactone when kidney function improves. Monitor renal function and electrolytes with serial BMP Low sodium diet Accurate I&O PA lateral chest x-ray tomorrow to re-evaluate his pleural effusions. I suspect he will need a right-sided thoracentesis also. (3) Hypertension: Code(s): I10 - Essential (primary) hypertension Status: Acute Assessment and Plan: Controlled (4) NSVT (nonsustained ventricular tachycardia): Code(s): I47.2 - Ventricular tachycardia Status: Acute Assessment and Plan: Several short runs of NSVT noted on telemetry. Has ICD in place. Subjective Date/time seen: 08/28/21 09:33 Interval history: 76-year-old admitted for shortness of breath. Date of service 08/27/2021: Complains of constipation. No chest pain. Is short of breath with activity. Date of service 08/28/2021: CPAP in place. No chest pain or shortness of breath is documented Review of Systems Review of Systems: All systems reviewed & are unremarkable except as noted in HPI and below ROS unobtainable: Yes unobtainable due to medical condition Constitutional: Constitutional: Reports weakness Eyes: Eyes: Denies blurry vision ENT: Reports Normal hearing present and Denies neck pain Cardiovascular: Cardiovascular: Denies chest pain and Reports dyspnea Respiratory: Respiratory: Reports dyspnea Gastrointestinal: Gastrointestinal: Denies abdominal pain Genitourinary: Genitourinary: Denies dysuria Musculoskeletal: Musculoskeletal: Denies neck pain Integumentary/Breasts: Skin/Breast: Denies dry skin Neurologic: Reports Normal hearing present and Reports weakness Psychiatric: Psychiatric: Denies anxiety Endocrine: Endocrine: Denies change in body appearance Hematologic/Lymphatic: Hematologic/Lymphatic: Denies easy bleeding Allergic/Immunologic: Allergic/Immunologic: Denies GI upset with certain foods Exam Const: General: comfortable and no acute distress Other: somnolent HENMT: Head: normal to inspection Eyes: General: appearance normal, both eyes and all related structures Neck: Neck: supple and no JVD Resp: Auscultation: not clear to auscultation bilaterally and rales Other: Right base decreased breath Cardio: Rate: regular rate Rhythm: regular rhythm Heart sounds: no murmurs GI: Auscultation: normal bowel sounds Skin: General skin exam: normal color Wounds: no wounds Neuro: Cranial nerves: Yes Normal hearing present Extrem: General: normal to inspection, no edema and no pedal edema Psych: Mental Status: mental status grossly normal Objective Data Vital Signs Vital Signs: Vital Signs - 24 hr 08/27/21 12:00 08/27/21 13:15 08/27/21 16:00 Temperature Pulse Rate 50 L 50 L Respiratory Rate 22 H 14 Blood Pressure 112/56 L Pulse Oximetry 96 92 100 08/27/21 17:39 08/27/21 20:00 08/27/21 20:32 Temperature 36.2 C L Pulse Rate 50 L 50 L Respiratory Rate 22 H
[2021-08-28 11:24] LABS: Glucose Point of Care 265 mg/dl (65-105)
[2021-08-28] MEDS: LIDOCAINE 5% PATCH 2 PATCH TRANSDERM (13:18)
--- NOTE | 2021-08-28 13:38 | PM.IMPN ---
Progress Note: A&P Assessment and Plan (1) Acute exacerbation of CHF (congestive heart failure): Qualifiers: Heart failure type: unspecified Qualified Code(s): I50.9 - Heart failure, unspecified Code(s): I50.9 - Heart failure, unspecified Status: Acute Assessment and Plan: Will repeat an echocardiogram in a.m. Aggressive diuresis Daily intake and output Continue to monitor 08/25/2021 interval history: patient is 76-year-old male presented with complaint of shortness of breath is significantly elevated BNP 26,600 most likely patient had acute on chronic systolic congestive Heart failure patient is being diuresed with IV Lasix 40 mg b.i.d. however patient continued to shortness of breath patient patient was given extra Lasix 40 mg IV times, patient also is found to have left-sided moderate pleural effusion unable to do thoracentesis today scheduled for tomorrow, with continues complaint of shortness of breath patient was seen by sliding joint maker recommended CPAP will continue to monitor, patient had a cardiac echo ejection fraction is 35%, will do cardiac enzymes and will consult muffler hand further recommendation. patient is blind in both eyes. 08/26/2021 interval history: patient is 76-year-old male presented with complaint of shortness of breath is significantly elevated BNP 26,600 most likely patient had acute on chronic systolic congestive Heart failure patient is being diuresed with IV Lasix 40 mg b.i.d. however on 08/25 patient continued to shortness of breath, patient was given extra Lasix 40 mg IV 1 times, patient also is found to have left-sided moderate pleural effusion unable to do thoracentesis, scheduled for today, patient continues to complaint of shortness of breath patient was seen by sliding joint maker on 08/25 recommended CPAP will continue to monitor, patient had a cardiac echo ejection fraction is 35%, 3 sets of cardiac enzymes are negative patient is seen muffler hand recommended to continue present managed, once clinically stable will have a PT OT evaluate the patient, patient is blind in both eyes. 08/27/2021 interval history: patient is 76-year-old male presented with complaint of shortness of breath is significantly elevated BNP 26,600 most likely patient had acute on chronic systolic congestive Heart failure patient is being diuresed with IV Lasix 40 mg b.i.d. however on 08/25 patient continued to shortness of breath, patient was given extra Lasix 40 mg IV 1 times, patient also is found to have left-sided moderate pleural effusion which is chronic and right sided pleural on 08/26 patient had 1L fluid was evacuated, ob 08/25 patient continued to complaint of shortness of breath patient was seen by sliding joint maker on 08/25 recommended CPAP will continue to monitor, patient had a cardiac echo ejection fraction is 35%, 3 sets of cardiac enzymes are negative patient was seen muffler hand recommended to continue present managed, today will place the patient on fluid restriction 1200 cc per day will continue to monitor, once clinically stable will have a PT OT evaluate the patient, patient is blind in both eyes. 08/28/2021 interval history: patient is 76-year-old male presented with complaint of shortness of breath is significantly elevated BNP 26,600 most likely patient had acute on chronic systolic congestive Heart failure patient is being diuresed with IV Lasix 40 mg b.i.d. however on 08/25 patient continued to shortness of breath, patient was given extra Lasix 40 mg IV 1 times, patient also is found to have left-sided moderate pleural effusion which is chronic and right sided pleural on 08/26 patient had 1L fluid was evacuated, ob 08/25 patient continued to complaint of shortness of breath patient was seen by sliding joint maker on 08/25 recommended CPAP will continue to monitor, patient had a cardiac echo ejection fraction is 35%, 3 sets of cardiac enzymes are negative patient was seen muffler hand, on 08/27 reduced furosemide to 20 m
[2021-08-28 16:32] LABS: Glucose Point of Care 301 mg/dl (65-105)
[2021-08-28 20:13] LABS: Glucose Point of Care 252 mg/dl (65-105)
[2021-08-29] VITALS (28 sets, daily range): BP systolic 71–137; BP diastolic 49–88; PULSE 50–71; RESP 16–28; TEMP 36.3–36.9; O2SAT 94–100
[2021-08-29] MEDS: ALPRAZolam (*CRX) 0.5 MG TABLET PO (04:47)
[2021-08-29 06:09] LABS: Hematocrit 49.3 % (42.0-52.0); Hemoglobin 15.7 g/dL (14.0-18.0); Mean Corpuscular HGB Conc 31.8 g/dl (32-36); Mean Corpuscular Hemoglobin 30.2 pg (26-34); Mean Corpuscular Volume 94.8 fl (80-100); Platelet Count Result 231 k/mm3 (150-375); Red Cell Distribution Width 15.6 % (11.5-14.5); White Blood Count 7.7 K/mm3 (4.5-10.0)
[2021-08-29 06:16] LABS: Glucose Point of Care 216 mg/dl (65-105)
[2021-08-29 06:21] LABS: Anion Gap 11 mmol/L (8-16); Blood Urea Nitrogen 83 mg/dL (9-20); Calcium 8.5 mg/dL (8.4-10.2); Carbon Dioxide 22 mmol/L (22-30); Chloride 101 mmol/L (98-107); Estimated CRCL calculation 26 ml/min; Estimated Glomerular Filt Rate 36; Glucose 218 mg/dL (65-110); Potassium 5.3 mmol/L (3.4-5.0); Sodium 134 mmol/L (137-145)
[2021-08-29] MEDS: ALBUMIN HUMAN 25% 25 GM/100 ML 100 ML IVPB (06:29)
[2021-08-29 07:41] LABS: Albumin Pleural Fluid 1.3 g/dL
[2021-08-29 08:06] LABS: Glucose Point of Care 245 mg/dl (65-105)
--- NOTE | 2021-08-29 09:13 | PM.PNCARD ---
Progress Note: A&P Assessment and Plan (1) Acute exacerbation of CHF (congestive heart failure): Qualifiers: Heart failure type: unspecified Qualified Code(s): I50.9 - Heart failure, unspecified Code(s): I50.9 - Heart failure, unspecified Status: Acute Assessment and Plan: Worsening shortness of breath over the past 3 weeks with bilateral pleural effusions noted on chest x-ray. He is s/p thorscentesis on 08/26 with 1L fluid evacuated. Furosemide and antihypertensives on hold at this time due to hypotension On Dobutamine 2.5mcg/kg/min for hemodynamic support Currently pacing at 50 bpm, will increase rate to 70bpm and have device interrogated. Resume GDMT with losartan and metoprolol when BP able to tolerate Unable to use ARNI because he has an JUSTIN allergy. Could optimize medical therapy with addition of spironolactone when kidney function improves. Monitor renal function and electrolytes with serial BMP Low sodium diet Accurate I&O Echo showed moderately reduced LV systolic function, EF 30 - 35%. Diastolic dysfunction is also present. RV chamber moderately enlarged with evidence of increased RV pressure. No significant valvular abnormalities. Mild PHTN, PASP 39 mmHg. (2) Biventricular ICD (implantable cardioverter-defibrillator) in place: Code(s): Z95.810 - Presence of automatic (implantable) cardiac defibrillator Status: Acute Assessment and Plan: [employer] device implanted in July 2021. [facility] Appears to be functioning normally. Interrogation to be done today. (3) Hypertension: Code(s): I10 - Essential (primary) hypertension Status: Acute Assessment and Plan: Controlled (4) NSVT (nonsustained ventricular tachycardia): Code(s): I47.2 - Ventricular tachycardia Status: Acute Assessment and Plan: Several short runs of NSVT noted on telemetry. Has ICD in place. Subjective Date/time seen: 08/29/21 10:34 Interval history: 76-year-old admitted for shortness of breath. Date of service 08/27/2021: Complains of constipation. No chest pain. Is short of breath with activity. Date of service 08/28/2021: CPAP in place. No chest pain or shortness of breath is documented Date of service 08/29/2021: He has been transferred to the ICU for higher of level of care d/t hypotension. Currently on BiPAP, resting comfortably but is somnolent. Review of Systems Review of Systems: All systems reviewed & are unremarkable except as noted in HPI and below ROS unobtainable: Yes unobtainable due to medical condition Constitutional: Constitutional: Reports weakness Eyes: Eyes: Denies blurry vision ENT: Reports Normal hearing present and Denies neck pain Cardiovascular: Cardiovascular: Denies chest pain and Reports dyspnea Respiratory: Respiratory: Reports dyspnea Gastrointestinal: Gastrointestinal: Denies abdominal pain Genitourinary: Genitourinary: Denies dysuria Musculoskeletal: Musculoskeletal: Denies neck pain Integumentary/Breasts: Skin/Breast: Denies dry skin Neurologic: Reports Normal hearing present and Reports weakness Psychiatric: Psychiatric: Denies anxiety Endocrine: Endocrine: Denies change in body appearance Hematologic/Lymphatic: Hematologic/Lymphatic: Denies easy bleeding Allergic/Immunologic: Allergic/Immunologic: Denies GI upset with certain foods Exam Const: General: comfortable and no acute distress Other: somnolent. BiPAP in place. HENMT: Head: normal to inspection Eyes: General: appearance normal, both eyes and all related structures Neck: Neck: supple and no JVD Resp: Auscultation: not clear to auscultation bilaterally and rales Cardio: Rate: regular rate Rhythm: regular rhythm Heart sounds: no murmurs GI: Auscultation: normal bowel sounds Skin: General skin exam: normal color Wounds: no wounds Neuro: Cranial nerves: Yes Normal hearing present Extrem: General:
[2021-08-29 09:22] LABS: Alveolar/Arterial O2 Gradient 235.8 mmHg; Base Excess ABG -1.9 mEq/l (+/-2.0); Device HIGH FLOW NASAL CANN; Fractional Inspired Oxygen 50 %; HCO3 ABG 21.4 mEq/l (22.0-26.0); Modified Allen's Test Pass; Oxygen Content ABG 17.8 %vol (16.0-22.0); Oxygen Saturation ABG 96.7 % (95.0-100.0); Oxyhemoglobin 94.7 % THb (90.0-100.0); PCO2 ABG 32.6 mmHg (35.0-45.0); PO2 FiO2 Ratio Arterial Blood 1.68 %; Site Drawn RIGHT RADIAL; Total Hemoglobin 13.3 g/dL (12.0-18.0); pH ABG 7.436 (7.350-7.450)
[2021-08-29 09:26] LABS: Magnesium 3.3 mg/dL (1.6-2.3)
[2021-08-29 09:38] LABS: NT Pro B Type Natriuretic Pept 23900 pg/mL (5-100)
[2021-08-29] MEDS: SODIUM CHLORIDE 0.9% IV 1,000 ML 500 ML (09:39)
--- NOTE | 2021-08-29 09:40 | WPDCNINT ---
Assessment and Plan Assessment and plan (1) Hypoxia: Code(s): R09.02 - Hypoxemia Status: Acute Assessment and Plan: secondary to pulmonary edema patient was placed on BiPAP for increased work of breathing which I will continue for now ABG reviewed chest x-ray reviewed hold Lasix due to hypertension at this time (2) Hypotension: Code(s): I95.9 - Hypotension, unspecified Status: Acute Assessment and Plan: cardiogenic shock exacerbated by medication and Xanax will give small fluid bolus 500 mL will start Levophed to maintain map of 65 check lactic acid level will place central venous catheter for vasopressors (3) Acute exacerbation of CHF (congestive heart failure): Qualifiers: Heart failure type: unspecified Qualified Code(s): I50.9 - Heart failure, unspecified Code(s): I50.9 - Heart failure, unspecified Status: Acute Assessment and Plan: hold Lasix am medications due to low blood pressure and worsening renal function start Levophed for vasopressor and ionotropic support support will start dobutamine once blood pressure is improved on Levophed. I will discuss with Cardiology Echo reviewed and shows 1. Complete two-dimensional, color flow and Doppler transthoracic echocardiogram is performed. 2. Left ventricular systolic function is moderately reduced, estimated at 30-35%. Flat interventricular septum consistent with increased RV pressure load. 3. There is severely increased left ventricular wall thickness. 4. The left ventricular diastolic function is abnormal. 5. Right ventricular chamber dimension is moderately enlarged. Linear artifact consistent with pacemaker wire. 6. Right ventricular systolic function is reduced. 7. Right atrial chamber dimension is moderately enlarged. 8. Bowing of the interatrial septum to the left by 2D imaging. 9. There is trace aortic valve regurgitation. 10. There is mild aortic valve sclerosis. 11. There is mild mitral valve regurgitation. 12. There is mild tricuspid valve regurgitation. 13. Mild pulmonary hypertension, estimated pulmonary arterial systolic pressure is 39 mmHg. 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 meds at this time continue Lantus change sliding scale to q.4 hours and high scale (5) Pulmonary edema: Code(s): J81.1 - Chronic pulmonary edema Status: Acute Assessment and Plan: continue respiratory support with BiPAP unfortunately we will have to hold Lasix at this time due to worsening renal function and hypertension (6) Acute kidney injury: Code(s): N17.9 - Acute kidney failure, unspecified Status: Acute Assessment and Plan: appears to be prerenal versus cardiogenic check CK check urine studies check ultrasound of kidneys consult nephrology insert Jones for accurate I and is (7) Hyperkalemia: Code(s): E87.5 - Hyperkalemia Status: Acute Assessment and Plan: secondary to a worsening renal function and patient was also on supplemental potassium earlier the course will give insulin andD50 recheck potassium later in the day Additional Plan DVT prophylaxis - Lovenox Code Status - Full Code Case discussed with Dr. Naqvi Total Critical Care Time - 35 minutes Due to a high probability of clinically significant, life threatening deterioration, the patient required my highest level of preparedness to intervene emergently and I personally spent this critical care time directly and personally managing the patie
[2021-08-29] MEDS: DOBUTamine 250 MG/D5W 250 ML 250 MG/250 ML BAG 11.22 MG IV CONT (10:23)
[2021-08-29 10:27] LABS: Creatine Kinase 43 U/L (55-170)
[2021-08-29 10:28] LABS: Lactic Acid Reflex 1.6 mmol/L (0.7-2.0)
[2021-08-29] MEDS: DEXTROSE 50% 25 GM/50 ML SYRINGE IV PUSH (10:33)
[2021-08-29] MEDS: INSULIN HUMAN REGULAR (*BKC) 100 UNITS/ML IV PUSH (10:34)
[2021-08-29 10:57] LABS: Appearance Urine Slightly Cloudy (Clear); Bilirubin Urine 2+ (Negative); Blood Urine Negative (Negative); Glucose Urine UA 2+ mg/dL (Negative); Ketones Urine Trace mg/dL (Negative); Leukocyte Esterase Ur Trace LEU/UL (Negative); Nitrate Urine Negative (Negative); Protein Urine Negative (Negative); Specific Grav Ur >= 1.030 (1.001-1.035)
[2021-08-29 10:58] LABS: Add Urine Microscopic? YES; Color Urine Dark Yellow (Yellow)
[2021-08-29 11:05] LABS: Hyaline Casts Urine 50+ /lpf; Mucus Urine Rare /lpf; Squamous Epithelial Cell Urine Moderate /hpf (Few); WBC Urine 16-20 /hpf
[2021-08-29 11:24] LABS: Glucose Point of Care 251 mg/dl (65-105)
[2021-08-29] MEDS: INSULIN ASPART (*BKC) 100 UNITS/ML SUB-Q (11:53)
--- NOTE | 2021-08-29 12:12 | PC.NURSE ---
This patient, Yesenia Sarah Sr., [facility] at 0940 . Patient/family oriented to unit policies and routines
[2021-08-29] MEDS: NOREPINEPHRINE 8 MG/D5W 250 ML 8 MG/250 ML BAG 9.38 MG IV CONT (12:48)
[2021-08-29] MEDS: LIDOCAINE HCL 2% GEL UROJET 10 ML PKG MUCOUS MEM (13:47)
--- NOTE | 2021-08-29 14:48 | WPDPROCEDUR ---
Procedures Central Line Placement Right Femoral: Central Line Date: 08/29/21 Central Line Time: 01:45 Discussed w/ the patient/family/POA,the placement of a central venous catheter, including its clinical necessity/indication & associated potential risks, benifits and alternatives.: Yes The patient/family/POA understand(s) and acknowledge(s) the need to proceed with central venous catheter insertion as an important element of the patient's clinical management.: Yes Consent: Consent was obtained from patient's Time Out Performed: Yes Patient Position: supine Patient placed on monitor/pulse ox: Yes Provider Prep: mask, sterile gown, sterile gloves, Max. sterile barrier precautions, cap and hand hygiene with conventional soap/water or alcohol based hand rub Central line prep: 2% Chlorhexidine scrub Local anesthesia used: lidocaine 1% Amount of anesthesia used (ml): 3 Sterile US Technique with sterile gel/sterile probe covers: Yes Post Procedure: aseptic technique maintained throughout procedure Additional comments: I was able to access vein without any difficulty with active help ultrasound. guidewire was advanced without any difficulty. Vein was dilated but dilator would not go smoothly. After partial dilation I try to advance catheter but catheter was getting stuck after 5-10 cm. I attempted twice on 2 separate needle sticks but with the same result. Procedure was aborted. Pressure was held. No hematoma swelling seen.
--- NOTE | 2021-08-29 14:50 | WPDPROCEDUR ---
Procedures Central Line Placement Right IJ: Central Line Date: 08/29/21 Central Line Time: 14:15 Discussed w/ the patient/family/POA,the placement of a central venous catheter, including its clinical necessity/indication & associated potential risks, benifits and alternatives.: Yes The patient/family/POA understand(s) and acknowledge(s) the need to proceed with central venous catheter insertion as an important element of the patient's clinical management.: Yes Consent: Consent was obtained from patient's Time Out Performed: Yes Patient Position: supine Patient placed on monitor/pulse ox: Yes Provider Prep: mask, sterile gown, sterile gloves, Max. sterile barrier precautions, cap and hand hygiene with conventional soap/water or alcohol based hand rub Central line prep: 2% Chlorhexidine scrub Sterile US Technique with sterile gel/sterile probe covers: Yes Central line lumen inserted: triple Length (cm): 16 Depth of Insertion (cm): 16 Post Procedure: sutured in place, good blood return, all ports aspirated, flushed, capped, transparent dressing, hemostatic product, antimicrobial product and aseptic technique maintained throughout procedure Post procedure x-ray: tip of catheter in good position and no pneumothorax seen Patient tolerated procedure: well Complications: none
--- NOTE | 2021-08-29 14:53 | PM.EVENT ---
Event Note Event Note Event Note: updated patient's and daughter at bedside. they requested the patient is full. UA is suggestive of UTI although patient is afebrile and has normal WBC count. Check urine culture and start Rocephin. his lactic acid level and CK level were normal.Discussed with Cardiology and his pacemaker rate was adjusted to 70. Check blood gas to assess acid-base status . Patient is currently on dobutamine and low-dose Levophed. Continue dobutamine and try to wean off Levophed a possible.
[2021-08-29] MEDS: ALBUMIN HUMAN 5% 25 GM/500 ML BTL IV CONT (15:08)
[2021-08-29 15:14] LABS: Device NON-INVASIVE VENT; Fractional Inspired Oxygen 60 %; HCO3 VBG 23.4 mEq/l (24.0-30.0); PCO2 VBG 44.7 mmHg (42.0-48.0); PO2 VBG 34.7 mmHg (35.0-45.0); pH VBG 7.337 (7.300-7.400)
[2021-08-29 15:15] LABS: Non-Invasive Expiratory Pressure 5 CMH2O; Non-Invasive Inspiratory Pressure 15 CMH2O; Non-Invasive Vent Rate 15 /MIN
--- NOTE | 2021-08-29 15:45 | PM.CNNEP ---
Assessment and Plan Additional Plan 1. Possible chronic kidney disease. Judging from his severe LVH, I would guess that he has had long-standing significant hypertension which would probably be enough to cause kidney disease. He also has diabetes. We can check a urine protein to see how much protein there is. This would let us know how much of an effect the diabetes had. There are other causes of kidney disease as well. We will evaluate this with serology, immuno fix. 2. the patient has acute kidney injury. His creatinine is 1.1 before. It looks like he has had this rising creatinine for few days before he came in while he was so fluid overloaded. Pre renal azotemia is a possibility because of the poor cardiac output. He also had hypotension along the way as well. His ultrasound shows no obstruction. Glomerulonephritis and and interstitial nephritis are less likely in this clinical scenario. At this point will get serology, immunofixation, urine electrolytes, CPK, and go from there. 3. hypertension. The patient was on antihypertensives at home. These are of course on hold because of his low blood pressure. 4. Hypotension. Unclear whether this is cardiogenic shock or otherwise. He had blood cultures done and this was negative. We can check a cortisol level. His hemoglobin is okay. 5. Diabetes: The patient is on sliding scale insulin and Accu-Cheks per hospitalist. 6. hypoxia: The patient is on oxygen with CPAP. Chest x-ray shows infiltrates. 7. 8. History of Present Illness Reason for Consult Consult date: 08/29/21 Chief Complaint Chief complaint: CHF exacerbation History of Present Illness Narrative: Yesenia is an unfortunate 76-year-old gentleman who has multiple medical problems including congestive heart failure, Status post AICD,left ventricular hypertrophy, diabetes, hypertension, DVT, diabetes, diabetic retinopathy such that he is legally blind, and the family says mild chronic kidney disease. The patient is unable to give a history, I got the history from the chart and from 2 daughters in the room. He regionally came in on the of this month with shortness of breath. He also had some swelling. He was not having any chest pain. He went to the emergency room and was found to have volume overload. He was given diuretics. His creatinine in October was normal at 1.1. On admission his creatinine was 1.6. His creatinine continued to rise to 2.6 yesterday and today was down to 2.2. He does have low blood pressure. He is on a norepinephrine drip. He had an echocardiogram a few days ago which shows decreased LV ejection fraction plus also severe left ventricular hypertrophy. He is on some Dobutamine to help with forward flow. His urine output has been somewhat meager. He made only 200cc of urine overnight although seems to have more in the [employer] collection container now. His family says that he told them that he had mild kidney disease but the doctor and he were not concerned about it. He never has seen a kidney specialist. his daughter say that he never complained of pain with urination, bloody urine, foamy urine, kidney stones, or bladder infections. Review of Systems Review of Systems: ROS unobtainable: Yes unobtainable due to medical condition PMFSH Past Medical History Medical History Congestive heart failure Deep venous thrombosis Glaucoma Hypertension Legally blind Type 2 diabetes mellitus Surgical History Surgical History History of orthopedic surgery Right hip pinning after fracture in the 1960s. Family History Family History Father Diabetes mellitus Acute myocardial infarction Hypertension Mother Congestive heart failure Hypertension Sibling Diabetes mellitus Acute myocardial infarcti
[2021-08-29 15:46] LABS: Ammonia < 9 umol/L (9-30)
[2021-08-29 15:59] LABS: Glucose Point of Care 194 mg/dl (65-105)
[2021-08-29 16:48] LABS: Creatine Kinase 39 U/L (55-170)
[2021-08-29 16:56] LABS: Complement C3 80 mg/dL (88-165)
[2021-08-29 17:00] LABS: Erythrocyte Sedimentation Rate 16 mm/hr (0-20)
--- NOTE | 2021-08-29 17:44 | PM.IMPN ---
Progress Note: A&P Assessment and Plan (1) Acute exacerbation of CHF (congestive heart failure): Qualifiers: Heart failure type: unspecified Qualified Code(s): I50.9 - Heart failure, unspecified Code(s): I50.9 - Heart failure, unspecified Status: Acute Assessment and Plan: Will repeat an echocardiogram in a.m. Aggressive diuresis Daily intake and output Continue to monitor 08/25/2021 interval history: patient is 76-year-old male presented with complaint of shortness of breath is significantly elevated BNP 26,600 most likely patient had acute on chronic systolic congestive Heart failure patient is being diuresed with IV Lasix 40 mg b.i.d. however patient continued to shortness of breath patient patient was given extra Lasix 40 mg IV times, patient also is found to have left-sided moderate pleural effusion unable to do thoracentesis today scheduled for tomorrow, with continues complaint of shortness of breath patient was seen by environmental specialist recommended CPAP will continue to monitor, patient had a cardiac echo ejection fraction is 35%, will do cardiac enzymes and will consult yarn examiner skeins further recommendation. patient is blind in both eyes. 08/26/2021 interval history: patient is 76-year-old male presented with complaint of shortness of breath is significantly elevated BNP 26,600 most likely patient had acute on chronic systolic congestive Heart failure patient is being diuresed with IV Lasix 40 mg b.i.d. however on 08/25 patient continued to shortness of breath, patient was given extra Lasix 40 mg IV 1 times, patient also is found to have left-sided moderate pleural effusion unable to do thoracentesis, scheduled for today, patient continues to complaint of shortness of breath patient was seen by environmental specialist on 08/25 recommended CPAP will continue to monitor, patient had a cardiac echo ejection fraction is 35%, 3 sets of cardiac enzymes are negative patient is seen yarn examiner skeins recommended to continue present managed, once clinically stable will have a PT OT evaluate the patient, patient is blind in both eyes. 08/27/2021 interval history: patient is 76-year-old male presented with complaint of shortness of breath is significantly elevated BNP 26,600 most likely patient had acute on chronic systolic congestive Heart failure patient is being diuresed with IV Lasix 40 mg b.i.d. however on 08/25 patient continued to shortness of breath, patient was given extra Lasix 40 mg IV 1 times, patient also is found to have left-sided moderate pleural effusion which is chronic and right sided pleural on 08/26 patient had 1L fluid was evacuated, ob 08/25 patient continued to complaint of shortness of breath patient was seen by environmental specialist on 08/25 recommended CPAP will continue to monitor, patient had a cardiac echo ejection fraction is 35%, 3 sets of cardiac enzymes are negative patient was seen yarn examiner skeins recommended to continue present managed, today will place the patient on fluid restriction 1200 cc per day will continue to monitor, once clinically stable will have a PT OT evaluate the patient, patient is blind in both eyes. 08/28/2021 interval history: patient is 76-year-old male presented with complaint of shortness of breath is significantly elevated BNP 26,600 most likely patient had acute on chronic systolic congestive Heart failure patient is being diuresed with IV Lasix 40 mg b.i.d. however on 08/25 patient continued to shortness of breath, patient was given extra Lasix 40 mg IV 1 times, patient also is found to have left-sided moderate pleural effusion which is chronic and right sided pleural on 08/26 patient had 1L fluid was evacuated, ob 08/25 patient continued to complaint of shortness of breath patient was seen by environmental specialist on 08/25 recommended CPAP will continue to monitor, patient had a cardiac echo ejection fraction is 35%, 3 sets of cardiac enzymes are negative patient was seen yarn examiner skeins, on 08/27 reduced furosemide to 20 m
[2021-08-29 20:16] LABS: Glucose Point of Care 154 mg/dl (65-105)
[2021-08-29] MEDS: DOBUTamine 250 MG/D5W 250 ML 250 MG/250 ML BAG 22.44 MG IV CONT (21:06)
[2021-08-29] MEDS: CENTRAL LINE FLUSH 10 ML IV PUSH (21:10)
[2021-08-29] MEDS: POLYMYXIN/TRIMETHOPRIM OPHTH 10 ML DROPS 1 DROP EACH EYE (21:10)
[2021-08-29] MEDS: DORZOLAMIDE/TIMOLOL OPHTH SOL 10 ML BOTTLE 1 DROP EACH EYE (21:10)
[2021-08-29 21:53] LABS: Creatinine Urine 125.1 mg/dL; Total Protein Urine Random 17 mg/dL; Ur Ttl Prot Creatinine Ratio 0.14 mg/mg (0-0.20)
[2021-08-29 22:01] LABS: Sodium Urine Random < 5 meq/L
[2021-08-30] VITALS (35 sets, daily range): BP systolic 77–127; BP diastolic 58–93; PULSE 69–77; RESP 14–32; TEMP 36.7–37.4; O2SAT 89–97
[2021-08-30 00:10] LABS: Glucose Point of Care 133 mg/dl (65-105)
--- NOTE | 2021-08-30 00:14 | PC.NURSE ---
Patient woke up, Alert and Oriented x2 at this time. Patient wanted break from bipap. Patient placed on 3LNC. O2sat 92-95%. No distress noted. Continue to monitor.
[2021-08-30] MEDS: CENTRAL LINE FLUSH 10 ML IV PUSH ×3 (04:33→20:00)
[2021-08-30 04:53] LABS: Hematocrit 36.6 % (42.0-52.0); Hemoglobin 11.9 g/dL (14.0-18.0); Mean Corpuscular HGB Conc 32.5 g/dl (32-36); Mean Corpuscular Hemoglobin 30.4 pg (26-34); Mean Corpuscular Volume 93.6 fl (80-100); Mean Platelet Volume 10.7 fl (7.4-10.4); Platelet Count Result 169 k/mm3 (150-375); Red Blood Count 3.91 M/mm3 (4.6-6.20); Red Cell Distribution Width 15.7 % (11.5-14.5); White Blood Count 8.7 K/mm3 (4.5-10.0)
[2021-08-30 05:12] LABS: Alanine Aminotransferase 21 U/L (6-50); Albumin Level 3.4 g/dL (3.5-5.1); Alkaline Phosphatase 71 U/L (38-126); Anion Gap 6 mmol/L (8-16); Aspartate Amino Transferase 21 U/L (17-59); Bilirubin,Total 1.1 mg/dL (0.2-1.3); Blood Urea Nitrogen 74 mg/dL (9-20); Calcium 8.2 mg/dL (8.4-10.2); Carbon Dioxide 27 mmol/L (22-30); Chloride 101 mmol/L (98-107); Estimated CRCL calculation 35 ml/min; Estimated Glomerular Filt Rate 51; Glucose 179 mg/dL (65-110); Magnesium 2.9 mg/dL (1.6-2.3); Potassium 4.1 mmol/L (3.4-5.0); Sodium 134 mmol/L (137-145)
[2021-08-30 07:29] LABS: Glucose Point of Care 174 mg/dl (65-105)
[2021-08-30] MEDS: DORZOLAMIDE/TIMOLOL OPHTH SOL 10 ML BOTTLE 1 DROP EACH EYE ×2 (08:08→19:59)
[2021-08-30] MEDS: POLYMYXIN/TRIMETHOPRIM OPHTH 10 ML DROPS 1 DROP EACH EYE ×2 (08:08→19:59)
[2021-08-30] MEDS: LATANOPROST 0.005% OP SOLN 2.5 ML BTL 1 DROP EACH EYE (08:12)
[2021-08-30] MEDS: DOBUTamine 250 MG/D5W 250 ML 250 MG/250 ML BAG 22.44 MG IV CONT ×2 (08:13→19:21)
[2021-08-30] MEDS: ESCITALOPRAM OXALATE 10 MG TABLET 20 MG PO (08:20)
[2021-08-30] MEDS: OMEGA 3 POLYUNSAT FATTY ACIDS 1 GM CAP PO (08:20)
[2021-08-30] MEDS: MULTIVITAMINS /C LUTEIN (CENTRUM SILVER) TABLET *BKC 1 TAB BY MOUTH (08:20)
[2021-08-30] MEDS: polyethylene glycoL 3350 17 GM POWD.PACK PO (08:20)
[2021-08-30] MEDS: INSULIN GLARGINE (*BKC) 100 UNITS/ML 12 UNITS SUB-Q (09:10)
[2021-08-30] MEDS: ENOXAPARIN 40 MG/0.4 ML SYRINGE SUB-Q (10:13)
--- NOTE | 2021-08-30 11:38 | WPDINTPN ---
Progress Note: A&P Assessment and Plan (1) Hypotension: Code(s): I95.9 - Hypotension, unspecified Status: Acute Assessment and Plan: cardiogenic shock exacerbated by medication and Xanax Small bolus of albumin was given Currently on Levophed 1 mcg/min, will maintain mean arterial pressures > 65 mmHg for adequate end organ perfusion Lactic acid was within normal limits Right IJ central line placed on 08/29. Right femoral central line was attempted but could not advance the catheter (2) Hypoxia: Code(s): R09.02 - Hypoxemia Status: Acute Assessment and Plan: secondary to pulmonary edema patient was placed on BiPAP for increased work of breathing, this morning seems to be less labored, he was placed on nasal cannula, 4 L with adequate O2 sats chest x-ray reviewed hold Lasix due to hypotension at this time (3) Acute exacerbation of CHF (congestive heart failure): Qualifiers: Heart failure type: unspecified Qualified Code(s): I50.9 - Heart failure, unspecified Code(s): I50.9 - Heart failure, unspecified Status: Acute Assessment and Plan: hold Lasix am medications due to low blood pressure and worsening renal function start Levophed for vasopressor and ionotropic support support will start dobutamine once blood pressure is improved on Levophed. I will discuss with Cardiology Echo reviewed and shows 1. Complete two-dimensional, color flow and Doppler transthoracic echocardiogram is performed. 2. Left ventricular systolic function is moderately reduced, estimated at 30-35%. Flat interventricular septum consistent with increased RV pressure load. 3. There is severely increased left ventricular wall thickness. 4. The left ventricular diastolic function is abnormal. 5. Right ventricular chamber dimension is moderately enlarged. Linear artifact consistent with pacemaker wire. 6. Right ventricular systolic function is reduced. 7. Right atrial chamber dimension is moderately enlarged. 8. Bowing of the interatrial septum to the left by 2D imaging. 9. There is trace aortic valve regurgitation. 10. There is mild aortic valve sclerosis. 11. There is mild mitral valve regurgitation. 12. There is mild tricuspid valve regurgitation. 13. Mild pulmonary hypertension, estimated pulmonary arterial systolic pressure is 39 mmHg. (4) Type 2 diabetes mellitus: Qualifiers: Diabetes mellitus complication status: with hyperglycemia Diabetes mellitus long term care phlebotomist insulin use: with long term care phlebotomist use Qualified Code(s): E11.65 - Type 2 diabetes mellitus with hyperglycemia; Z79.4 - halfway (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 of insulin Code(s): E11.9 - Type 2 diabetes mellitus without complications Status: Acute Assessment and Plan: uncontrolled hold p.o. meds at this time continue Lantus sliding scale insulin q.4 hours and high scale (5) Pulmonary edema: Code(s): J81.1 - Chronic pulmonary edema Status: Acute Assessment and Plan: continue respiratory support with BiPAP, alternating with nasal cannula unfortunately we will have to hold Lasix at this time due to worsening renal function and hypertension (6) Acute kidney injury: Code(s): N17.9 - Acute kidney failure, unspecified Status: Acute Assessment and Plan: appears to be prerenal versus cardiogenic CK levels are normal Urine lytes not a true reflection of renal as patient has been on Lasix 08/29: Renal ultrasound showed normal kidneys without any hydronephrosis Appreciate nephrology following the patient Urine output improving with dobutamine and Levophed -maintain MAP > 65 mmHg for adequate renal perfusion -creatinine also improving (7) Hyperkalemia: Code(s): E87.5 - Hyperkalemia Status: Acute Assessment and Plan: secondary to a worsening renal function and patient was also on supplemental potassium earlier the course RESOLVED Addition
[2021-08-30 12:08] LABS: Glucose Point of Care 259 mg/dl (65-105)
[2021-08-30] MEDS: INSULIN ASPART (*BKC) 100 UNITS/ML SUB-Q (12:27)
--- NOTE | 2021-08-30 14:59 | PM.IMPN ---
Progress Note: A&P Assessment and Plan (1) Acute exacerbation of CHF (congestive heart failure): Qualifiers: Heart failure type: unspecified Qualified Code(s): I50.9 - Heart failure, unspecified Code(s): I50.9 - Heart failure, unspecified Status: Acute Assessment and Plan: Will repeat an echocardiogram in a.m. Aggressive diuresis Daily intake and output Continue to monitor 08/25/2021 interval history: patient is 76-year-old male presented with complaint of shortness of breath is significantly elevated BNP 26,600 most likely patient had acute on chronic systolic congestive Heart failure patient is being diuresed with IV Lasix 40 mg b.i.d. however patient continued to shortness of breath patient patient was given extra Lasix 40 mg IV times, patient also is found to have left-sided moderate pleural effusion unable to do thoracentesis today scheduled for tomorrow, with continues complaint of shortness of breath patient was seen by rodeo clown recommended CPAP will continue to monitor, patient had a cardiac echo ejection fraction is 35%, will do cardiac enzymes and will consult clinic nurse further recommendation. patient is blind in both eyes. 08/26/2021 interval history: patient is 76-year-old male presented with complaint of shortness of breath is significantly elevated BNP 26,600 most likely patient had acute on chronic systolic congestive Heart failure patient is being diuresed with IV Lasix 40 mg b.i.d. however on 08/25 patient continued to shortness of breath, patient was given extra Lasix 40 mg IV 1 times, patient also is found to have left-sided moderate pleural effusion unable to do thoracentesis, scheduled for today, patient continues to complaint of shortness of breath patient was seen by rodeo clown on 08/25 recommended CPAP will continue to monitor, patient had a cardiac echo ejection fraction is 35%, 3 sets of cardiac enzymes are negative patient is seen clinic nurse recommended to continue present managed, once clinically stable will have a PT OT evaluate the patient, patient is blind in both eyes. 08/27/2021 interval history: patient is 76-year-old male presented with complaint of shortness of breath is significantly elevated BNP 26,600 most likely patient had acute on chronic systolic congestive Heart failure patient is being diuresed with IV Lasix 40 mg b.i.d. however on 08/25 patient continued to shortness of breath, patient was given extra Lasix 40 mg IV 1 times, patient also is found to have left-sided moderate pleural effusion which is chronic and right sided pleural on 08/26 patient had 1L fluid was evacuated, ob 08/25 patient continued to complaint of shortness of breath patient was seen by rodeo clown on 08/25 recommended CPAP will continue to monitor, patient had a cardiac echo ejection fraction is 35%, 3 sets of cardiac enzymes are negative patient was seen clinic nurse recommended to continue present managed, today will place the patient on fluid restriction 1200 cc per day will continue to monitor, once clinically stable will have a PT OT evaluate the patient, patient is blind in both eyes. 08/28/2021 interval history: patient is 76-year-old male presented with complaint of shortness of breath is significantly elevated BNP 26,600 most likely patient had acute on chronic systolic congestive Heart failure patient is being diuresed with IV Lasix 40 mg b.i.d. however on 08/25 patient continued to shortness of breath, patient was given extra Lasix 40 mg IV 1 times, patient also is found to have left-sided moderate pleural effusion which is chronic and right sided pleural on 08/26 patient had 1L fluid was evacuated, ob 08/25 patient continued to complaint of shortness of breath patient was seen by rodeo clown on 08/25 recommended CPAP will continue to monitor, patient had a cardiac echo ejection fraction is 35%, 3 sets of cardiac enzymes are negative patient was seen clinic nurse, on 08/27 reduced furosemide to 20 m
--- NOTE | 2021-08-30 16:00 | PCPTNOTE ---
Pt. on hold for therapy treatment, per nursing due to change medical status and blood pressure support medication. Will follow and continue with therapy services when appropriate
[2021-08-30 16:06] LABS: Glucose Point of Care 197 mg/dl (65-105)
--- NOTE | 2021-08-30 16:25 | PM.PNNEP ---
Progress Note: A&P Additional Plan 1. Possible chronic kidney disease. Judging from his severe LVH, I would guess that he has had long-standing significant hypertension which would probably be enough to cause kidney disease. He also has diabetes. We can check a urine protein to see how much protein there is. This would let us know how much of an effect the diabetes had. There are other causes of kidney disease as well. We will evaluate this with serology, immuno fix. 2. the patient has acute kidney injury. His creatinine is 1.1 before. it peaked and is on its way down. renal sono is negative .urine 'lytes prerenal UA shows some blood and wbcs. on antibiotidsc ck is okay continue to give supportive care. volume status looks pretty good but he is still hypotensive. the pressors are being weaned. 3. hypertension. The patient was on antihypertensives at home. These are of course on hold because of his low blood pressure. 4. Hypotension. improving 5. Diabetes: The patient is on sliding scale insulin and Accu-Cheks per hospitalist. 6. hypoxia: The patient is on oxygen with CPAP. Chest x-ray shows infiltrates. 7. acidosis much improved Subjective Date/time seen: 08/30/21 16:25 Interval history: patient is looking much better. able to interact some but still weak. no sob. Review of Systems Cardiovascular: Cardiovascular: Reports no additional cardiovascular complaints Respiratory: Respiratory: Reports no additional respiratory complaints Gastrointestinal: Gastrointestinal: Reports no additional gastrointestinal complaints Genitourinary: Genitourinary: Reports no additional male genitourinary complaints Exam Narrative: WDWN in NAD skin no rash head ncat lungs clear cor reg no rub abd BS+ nontender and soft ext no edema. Objective Data Vital Signs Vital Signs: Vital Signs - 24 hr 08/29/21 17:35 08/29/21 17:52 08/29/21 19:41 Temperature Pulse Rate 70 70 70 Respiratory Rate 17 18 Blood Pressure Pulse Oximetry 100 100 08/29/21 20:00 08/29/21 20:09 08/29/21 21:06 Temperature 36.7 C Pulse Rate 70 70 70 Respiratory Rate 23 H 24 H Blood Pressure 105/74 137/88 Pulse Oximetry 100 100 08/29/21 21:34 08/29/21 22:00 08/29/21 23:12 Temperature 36.9 C Pulse Rate 70 70 70 Respiratory Rate 21 H 28 H Blood Pressure 99/75 L 104/73 Pulse Oximetry 100 100 08/29/21 23:23 08/30/21 00:00 08/30/21 00:15 Temperature 36.8 C Pulse Rate 70 70 70 Respiratory Rate 25 H 20 17 Blood Pressure 115/93 H Pulse Oximetry 100 95 94 08/30/21 02:00 08/30/21 02:19 08/30/21 03:01 Temperature 36.7 C Pulse Rate 70 71 71 Respiratory Rate 19 19 19 Blood Pressure 101/70 Pulse Oximetry 91 93 94 08/30/21 04:00 08/30/21 04:36 08/30/21 04:37 Temperature 36.8 C Pulse Rate 70 70 70 Respiratory Rate 14 Blood Pressure 113/78 127/83 127/83 Pulse Oximetry 93 08/30/21 05:09 08/30/21 06:00 08/30/21 08:00 Temperature 36.8 C Pulse Rate 70 70 71 Respiratory Rate 19 20 Blood Pressure 108/81 Pulse Oximetry 93 96 95 08/30/21 08:05 08/30/21 08:12 08/30/21 08:13 Temperature 37.1 C Pulse Rate 70 71 70 Respiratory Rate 25 H Blood Pressure 102/66 102/66 102/66 Pulse Oximetry 94 08/30/21 08:15 08/30/21 09:13 08/30/21 10:00 Temperature 37.2 C Pulse Rate 70 70 Respiratory Rate 28 H Blood Pressure 100/67 96/58 L Pulse Oximetry 95 92 08/30/21 10:15 08/30/21 12:00 08/30/21 12:23 Temperature 37.2 C 37.2 C Pulse Rate 71 70 69 Respiratory Rate 32 H 17 Blood Pressure 95/58 L 97/59 L 97/59 L Pulse Oximetry 89 L 94 95 08/30/21 14:00 08/30/21 16:00 08/30/21 16:07 Temperature 37.3 C 37.3 C Pulse Rate 70 71 71 Respiratory Rate 26 H 22 H Blood Pressure 100/83 88/63 L Pulse Oximetry 96 94 Intake/Output Intake/Output: Intake & Output 08/27/21 08/28/21 08/29/21 08/30/21 23:59 23:59 23:59 23:59 Intake Total 790 980 650
--- NOTE | 2021-08-30 16:39 | PM.PNCARD ---
Progress Note: A&P Assessment and Plan (1) Acute exacerbation of CHF (congestive heart failure): Qualifiers: Heart failure type: unspecified Qualified Code(s): I50.9 - Heart failure, unspecified Code(s): I50.9 - Heart failure, unspecified Status: Acute Assessment and Plan: Acute on chronic systolic and diatolic CHF. Worsening shortness of breath over the past 3 weeks with bilateral pleural effusions noted on chest x-ray. He is s/p thoracentesis on 08/26 with 1L fluid evacuated. Furosemide and antihypertensives on hold at this time due to hypotension On Dobutamine 5 mcg/kg/min for hemodynamic support Pacing rate increased to 70 ppm. Resume GDMT with losartan and metoprolol when BP able to tolerate. Unable to use ARNI because he has an JUSTIN allergy. Could optimize medical therapy with addition of spironolactone when kidney function improves. Monitor renal function and electrolytes with serial BMP; renal fxn improving. Low sodium diet Accurate I&O Echo showed moderately reduced LV systolic function, EF 30 - 35%. Diastolic dysfunction is also present. RV chamber moderately enlarged with evidence of increased RV pressure. No significant valvular abnormalities. Mild PHTN, PASP 39 mmHg. (2) Nonischemic cardiomyopathy: Code(s): I42.8 - Other cardiomyopathies Status: Acute Assessment and Plan: EF has declined since pt was at the [facility] in July; now 30-35%. (3) NSVT (nonsustained ventricular tachycardia): Code(s): I47.2 - Ventricular tachycardia Status: Acute Assessment and Plan: Several short runs of NSVT noted on telemetry. Resume BB when BP better., keep K+ WNL. (4) Status post biventricular pacemaker: Code(s): Z95.0 - Presence of cardiac pacemaker Status: Acute Assessment and Plan: Medtronic device implanted in July 2021 for CHB. Followed by the [facility]. No ICD. Appears to be functioning normally. Interrogation shows normal fxn. (5) Hypertension: Code(s): I10 - Essential (primary) hypertension Status: Acute Assessment and Plan: Controlled Subjective Date/time seen: 08/30/21 16:39 Interval history: Interval history: 76-year-old admitted for shortness of breath and acute CHF. EF 30-35%. Has a Medtronic Bi V pacemaker (not an ICD) implanted 07/2021. Date of service 08/27/2021: Complains of constipation. No chest pain. Is short of breath with activity. Date of service 08/28/2021: CPAP in place. No chest pain or shortness of breath is documented Date of service 08/29/2021: He has been transferred to the ICU for higher of level of care d/t hypotension. Currently on BiPAP, resting comfortably but is somnolent. Pacing rate increased from 50-70. Started on dobutamine and Levophed. Date of service 08/30/2021: Patient says he is feeling better, breathing better. Was on BiPAP overnight, now 4 L nasal cannula. Remains on Levophed 1 mcg , dobutamine 5 mcg. Telemetry shows sinus rhythm, ventricular pacing. Daughters at bedside. Medtronic Bi V ICD interrogated, normal function, rate reprogrammed to 70 beats per minute. Longevity 9 years. 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 echo 07/2021 showed EF 40-45%, severe hypokinesis of the inferior wall, diastolic dysfunction, mild left ventricular enlargement, no significant valve disease. Hypertension, hyperlipidemia, diabetes. Had Admission July 2021 for CHF and acute kidney injury, with complete heart block and type 2 av block, Bi V pacemaker placed. 07/26/2021 creatinine 1.34. Has a chronic loculated left pleural effusion. Review of Systems Constitutional: Constitutional: Reports fatigue and Reports weakness Eyes: Eyes: Reports no additional eye complaints ENT: Denies
[2021-08-30] MEDS: ACETAMINOPHEN ELIXIR 325 MG/10.15 ML UDC 650 MG PO (19:59)
[2021-08-30 20:08] LABS: Glucose Point of Care 159 mg/dl (65-105)
[2021-08-30 20:37] LABS: Glucose Pleural Fluid 184 mg/dL; LDH Pleural Fluid 73 U/L; Total Protein Pleural Fluid <3.0 g/dL
[2021-08-31] VITALS (66 sets, daily range): BP systolic 73–114; BP diastolic 46–87; PULSE 69–98; RESP 20–91; TEMP 37.1–38.4; O2SAT 33–100
[2021-08-31 00:17] LABS: Glucose Point of Care 206 mg/dl (65-105)
[2021-08-31] MEDS: INSULIN ASPART (*BKC) 100 UNITS/ML SUB-Q (00:23)
[2021-08-31 04:54] LABS: Hematocrit 36.5 % (42.0-52.0); Hemoglobin 12.2 g/dL (14.0-18.0); Mean Corpuscular HGB Conc 33.4 g/dl (32-36); Mean Corpuscular Hemoglobin 30.7 pg (26-34); Mean Corpuscular Volume 91.7 fl (80-100); Platelet Count Result 164 k/mm3 (150-375); Red Blood Count 3.98 M/mm3 (4.6-6.20); Red Cell Distribution Width 15.6 % (11.5-14.5); White Blood Count 8.1 K/mm3 (4.5-10.0)
[2021-08-31 05:09] LABS: Alanine Aminotransferase 19 U/L (6-50); Albumin Level 3.3 g/dL (3.5-5.1); Alkaline Phosphatase 74 U/L (38-126); Anion Gap 8 mmol/L (8-16); Aspartate Amino Transferase 22 U/L (17-59); Bilirubin,Total 1.5 mg/dL (0.2-1.3); Blood Urea Nitrogen 74 mg/dL (9-20); Calcium 8.1 mg/dL (8.4-10.2); Carbon Dioxide 28 mmol/L (22-30); Chloride 100 mmol/L (98-107); Estimated CRCL calculation 35 ml/min; Estimated Glomerular Filt Rate 51; Glucose 180 mg/dL (65-110); Phosphorus 3.6 mg/dL (2.5-4.5); Potassium 3.9 mmol/L (3.4-5.0); Sodium 136 mmol/L (137-145)
[2021-08-31] MEDS: CENTRAL LINE FLUSH 10 ML IV PUSH ×3 (05:18→21:22)
--- NOTE | 2021-08-31 06:25 | PC.NURSE ---
Dr. johnston notified of increased O2 demands, Chest xray was done. Patient also praying to God complaining of extreme anxiety. Dr. Johnston notified of patient status. Okay to give 0.25mg Ativan x1 now, as patient clams down attempt bipap again.
[2021-08-31] MEDS: LORazepam INJ (*CRX) 2 MG/ML VIAL 0.25 MG IV PUSH (06:28)
[2021-08-31] MEDS: DOBUTamine 250 MG/D5W 250 ML 250 MG/250 ML BAG 22.44 MG IV CONT ×2 (06:30→17:31)
[2021-08-31 07:30] LABS: Glucose Point of Care 182 mg/dl (65-105)
--- NOTE | 2021-08-31 07:42 | PCPTNOTE ---
Patient was transferred to ICU on 08/29/2021. PT will hold treatment until patient is medically appropriate to resume PT.
--- NOTE | 2021-08-31 08:11 | WPDINTPN ---
Progress Note: A&P Assessment and Plan (1) Hypotension: Code(s): I95.9 - Hypotension, unspecified Status: Acute Assessment and Plan: Cardiogenic shock exacerbated by medication and Xanax Small bolus of albumin was given Currently on Levophed 1 mcg/min, will maintain mean arterial pressures > 65 mmHg for adequate end organ perfusion Lactic acid was within normal limits Right IJ central line placed on 08/29. Right femoral central line was attempted but could not advance the catheter CXR shows worsening infiltrates, On Ceftriaxone, Will add Vancomycin (2) Hypoxia: Code(s): R09.02 - Hypoxemia Status: Acute Assessment and Plan: secondary to pulmonary edema and or pneumonia patient alternating nasal cannula and BiPAP chest x-ray reviewed Will try a small dose of diuretic (3) Acute exacerbation of CHF (congestive heart failure): Qualifiers: Heart failure type: unspecified Qualified Code(s): I50.9 - Heart failure, unspecified Code(s): I50.9 - Heart failure, unspecified Status: Acute Assessment and Plan: Diuretics and antihypertensives are on hold due to low blood pressure and worsening renal function OFF Levophed Continue dopamine Echo reviewed and shows 1. Complete two-dimensional, color flow and Doppler transthoracic echocardiogram is performed. 2. Left ventricular systolic function is moderately reduced, estimated at 30-35%. Flat interventricular septum consistent with increased RV pressure load. 3. There is severely increased left ventricular wall thickness. 4. The left ventricular diastolic function is abnormal. 5. Right ventricular chamber dimension is moderately enlarged. Linear artifact consistent with pacemaker wire. 6. Right ventricular systolic function is reduced. 7. Right atrial chamber dimension is moderately enlarged. 8. Bowing of the interatrial septum to the left by 2D imaging. 9. There is trace aortic valve regurgitation. 10. There is mild aortic valve sclerosis. 11. There is mild mitral valve regurgitation. 12. There is mild tricuspid valve regurgitation. 13. Mild pulmonary hypertension, estimated pulmonary arterial systolic pressure is 39 mmHg. (4) Type 2 diabetes mellitus: Qualifiers: Diabetes mellitus complication status: with hyperglycemia Diabetes mellitus shelter insulin use: with ad terminal makeup operator use Qualified Code(s): E11.65 - Type 2 diabetes mellitus with hyperglycemia; Z79.4 - correction (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 of insulin Code(s): E11.9 - Type 2 diabetes mellitus without complications Status: Acute Assessment and Plan: uncontrolled hold p.o. meds at this time continue Lantus sliding scale insulin q.4 hours and high scale (5) Pulmonary edema: Code(s): J81.1 - Chronic pulmonary edema Status: Acute Assessment and Plan: continue respiratory support with BiPAP, alternating with nasal cannula unfortunately we will have to hold Lasix at this time due to worsening renal function and hypertension (6) Acute kidney injury: Code(s): N17.9 - Acute kidney failure, unspecified Status: Acute Assessment and Plan: appears to be prerenal versus cardiogenic CK levels are normal Urine lytes not a true reflection of renal as patient has been on diuretics 08/29: Renal ultrasound showed normal kidneys without any hydronephrosis Appreciate nephrology following the patient Urine output improving with dobutamine and Levophed -maintain MAP > 65 mmHg for adequate renal perfusion -creatinine also improving (7) Hyperkalemia: Code(s): E87.5 - Hyperkalemia Status: Acute Assessment and Plan: secondary to a worsening renal function and patient was also on supplemental potassium earlier the course RESOLVED (8) Anxiety: Code(s): F41.9 - Anxiety disorder, unspecified Status: Acute Assessment and Plan: Patient does have a history of anxi
[2021-08-31] MEDS: DORZOLAMIDE/TIMOLOL OPHTH SOL 10 ML BOTTLE 1 DROP EACH EYE ×2 (08:13→21:09)
[2021-08-31] MEDS: LATANOPROST 0.005% OP SOLN 2.5 ML BTL 1 DROP EACH EYE (08:14)
[2021-08-31] MEDS: POLYMYXIN/TRIMETHOPRIM OPHTH 10 ML DROPS 1 DROP EACH EYE ×2 (08:15→21:08)
[2021-08-31] MEDS: ENOXAPARIN 40 MG/0.4 ML SYRINGE SUB-Q (08:16)
[2021-08-31] MEDS: INSULIN GLARGINE (*BKC) 100 UNITS/ML 12 UNITS SUB-Q (08:21)
[2021-08-31 09:04] LABS: Alveolar/Arterial O2 Gradient 294.6 mmHg; Base Excess ABG -0.5 mEq/l (+/-2.0); Fractional Inspired Oxygen 55 %; HCO3 ABG 22.3 mEq/l (22.0-26.0); Oxygen Content ABG 17.7 %vol (16.0-22.0); Oxygen Saturation ABG 93.6 % (95.0-100.0); Oxyhemoglobin 90.6 % THb (90.0-100.0); PCO2 ABG 31.3 mmHg (35.0-45.0); PO2 ABG 62.7 mmHg (80.0-100.0); PO2 FiO2 Ratio Arterial Blood 1.14 %; Total Hemoglobin 13.9 g/dL (12.0-18.0)
[2021-08-31 09:05] LABS: Device BIPAP; Modified Allen's Test Pass; Site Drawn RIGHT RADIAL
[2021-08-31] MEDS: FUROSEMIDE INJ 40 MG/4 ML VIAL IV PUSH (09:09)
[2021-08-31] MEDS: IPRATROPIUM BR 0.02% INH SOLN 0.5 MG/2.5 ML VIAL INHALATION ×3 (09:37→20:04)
[2021-08-31] MEDS: ALBUTEROL SULFATE NEB 2.5 MG/3 ML INH INHALATION ×3 (09:37→20:04)
[2021-08-31 11:53] LABS: Glucose Point of Care 191 mg/dl (65-105)
--- NOTE | 2021-08-31 11:53 | PCOTNOTE ---
Per nurse, hold pt. for therapy today due to increased O2 needs and potential for intubation. Will follow.
[2021-08-31] MEDS: MIDAZOLAM 100MG/NS 100ML(*CRX) 100 MG/100 ML BAG IV CONT (12:35)
[2021-08-31] MEDS: FENTANYL 2,500MCG/NS250ML(*CRX 2,500 MCG/250 ML BAG IV CONT (12:35)
--- NOTE | 2021-08-31 13:18 | WPDPROCEDUR ---
Procedures Intubation Intubation Date: 08/31/21 Intubation Time: 13:05 A pre-procedural Time-Out was completed immediately before starting the procedure and confirmed: Patient Identification, Site, Procedure, Patient Position and the Availability of Requisite Equipment: Yes Sedative: etomidate Paralytic: rocuronium Laryngoscope: fiber optic video scope Assist device used: fiber optic device ET tube size: 8 Tube secured depth (cm): 24 Tube secured location: lips Tube placement confirmation: visualized tube passing through cords, equal breath sounds bilaterally, no breath sounds over epigastrium and confirmation by capnometry Patient tolerated procedure: well Intubation complications: none
[2021-08-31] MEDS: ESCITALOPRAM OXALATE 10 MG TABLET 20 MG PO (13:33)
[2021-08-31] MEDS: MULTIVITAMINS /C LUTEIN (CENTRUM SILVER) TABLET *BKC 1 TAB BY MOUTH (13:33)
--- NOTE | 2021-08-31 13:33 | PM.IMPN ---
Progress Note: A&P Assessment and Plan (1) Hypotension: Code(s): I95.9 - Hypotension, unspecified Status: Acute Assessment and Plan: Cardiogenic shock exacerbated by medication and Xanax Small bolus of albumin was given Currently on Levophed 1 mcg/min, will maintain mean arterial pressures > 65 mmHg for adequate end organ perfusion Lactic acid was within normal limits Right IJ central line placed on 08/29. Right femoral central line was attempted but could not advance the catheter CXR shows worsening infiltrates, On Ceftriaxone, Will add Vancomycin (2) Hypoxia: Code(s): R09.02 - Hypoxemia Status: Acute Assessment and Plan: secondary to pulmonary edema and or pneumonia patient alternating nasal cannula and BiPAP chest x-ray reviewed Will try a small dose of diuretic (3) Acute exacerbation of CHF (congestive heart failure): Qualifiers: Heart failure type: unspecified Qualified Code(s): I50.9 - Heart failure, unspecified Code(s): I50.9 - Heart failure, unspecified Status: Acute Assessment and Plan: Diuretics and antihypertensives are on hold due to low blood pressure and worsening renal function OFF Levophed Continue dopamine Echo reviewed and shows 1. Complete two-dimensional, color flow and Doppler transthoracic echocardiogram is performed. 2. Left ventricular systolic function is moderately reduced, estimated at 30-35%. Flat interventricular septum consistent with increased RV pressure load. 3. There is severely increased left ventricular wall thickness. 4. The left ventricular diastolic function is abnormal. 5. Right ventricular chamber dimension is moderately enlarged. Linear artifact consistent with pacemaker wire. 6. Right ventricular systolic function is reduced. 7. Right atrial chamber dimension is moderately enlarged. 8. Bowing of the interatrial septum to the left by 2D imaging. 9. There is trace aortic valve regurgitation. 10. There is mild aortic valve sclerosis. 11. There is mild mitral valve regurgitation. 12. There is mild tricuspid valve regurgitation. 13. Mild pulmonary hypertension, estimated pulmonary arterial systolic pressure is 39 mmHg. (4) Type 2 diabetes mellitus: Qualifiers: Diabetes mellitus complication status: with hyperglycemia Diabetes mellitus longterm insulin use: with intermediate designer use Qualified Code(s): E11.65 - Type 2 diabetes mellitus with hyperglycemia; Z79.4 - care home (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 of insulin Code(s): E11.9 - Type 2 diabetes mellitus without complications Status: Acute Assessment and Plan: uncontrolled hold p.o. meds at this time continue Lantus sliding scale insulin q.4 hours and high scale (5) Pulmonary edema: Code(s): J81.1 - Chronic pulmonary edema Status: Acute Assessment and Plan: continue respiratory support with BiPAP, alternating with nasal cannula unfortunately we will have to hold Lasix at this time due to worsening renal function and hypertension (6) Acute kidney injury: Code(s): N17.9 - Acute kidney failure, unspecified Status: Acute Assessment and Plan: appears to be prerenal versus cardiogenic CK levels are normal Urine lytes not a true reflection of renal as patient has been on diuretics 08/29: Renal ultrasound showed normal kidneys without any hydronephrosis Appreciate nephrology following the patient Urine output improving with dobutamine and Levophed -maintain MAP > 65 mmHg for adequate renal perfusion -creatinine also improving (7) Hyperkalemia: Code(s): E87.5 - Hyperkalemia Status: Acute Assessment and Plan: secondary to a worsening renal function and patient was also on supplemental potassium earlier the course RESOLVED (8) Anxiety: Code(s): F41.9 - Anxiety disorder, unspecified Status: Acute Assessment and Plan: Patient does have a history of anxi
[2021-08-31 13:34] LABS: Alveolar/Arterial O2 Gradient 284.1 mmHg; Fractional Inspired Oxygen 70 %; HCO3 ABG 23.5 mEq/l (22.0-26.0); Oxygen Content ABG 18.6 %vol (16.0-22.0); Oxygen Saturation ABG 99.4 % (95.0-100.0); PCO2 ABG 28.2 mmHg (35.0-45.0); PO2 ABG 184.7 mmHg (80.0-100.0); PO2 FiO2 Ratio Arterial Blood 2.64 %; Total Hemoglobin 13.2 g/dL (12.0-18.0)
[2021-08-31] MEDS: ACETAMINOPHEN ELIXIR 325 MG/10.15 ML UDC 650 MG PO ×2 (13:34→21:07)
[2021-08-31 13:36] LABS: Arterial Blood Gas PEEP 8 cmH2O; Arterial Blood Gas Tidal Volume 450 ml; Arterial Blood Gas Vent Mode CMV; Arterial Blood Gas Ventilator rate 24 /MIN; Device VENTILATOR; Modified Allen's Test Pass; Site Drawn RIGHT RADIAL; pH ABG 7.539 (7.350-7.450)
[2021-08-31] MEDS: ASPIRIN 81 MG CHEWABLE TABLET PO (13:36)
--- NOTE | 2021-08-31 14:16 | PM.PNNEP ---
Progress Note: A&P Additional Plan 1. Possible chronic kidney disease. Judging from his severe LVH, I would guess that he has had long-standing significant hypertension which would probably be enough to cause kidney disease. He also has diabetes. We can check a urine protein to see how much protein there is. This would let us know how much of an effect the diabetes had. his creatinine seems to be stabilizing at 1.6. 2. the patient has acute kidney injury. His creatinine is 1.1 before. it peaked and is on its way down. renal sono is negative .urine 'lytes prerenal UA shows some blood and wbcs. on antibiotidsc ck is okay continue to give supportive care. He is off the norepinephrine. Volume status looks better. 3. hypertension. The patient was on antihypertensives at home. These are of course on hold because of his low blood pressure. 4. Hypotension. improving 5. Diabetes: The patient is on sliding scale insulin and Accu-Cheks per hospitalist. 6. hypoxia: The patient is on oxygen with CPAP. Chest x-ray shows infiltrates. 7. acidosis much improved 8. Congestive heart failure. He continues on dobutamine drip. Subjective Date/time seen: 08/31/21 14:16 Interval history: patient is looking much better. No pain or shortness of breath. Exam Narrative: WDWN in NAD skin no rash head ncat lungs clear bilaterally cor reg no rub abd BS+ nontender and soft ext no edema or cyanosis. Objective Data Vital Signs Vital Signs: Vital Signs - 24 hr 08/30/21 16:00 08/30/21 16:07 08/30/21 17:59 Temperature 37.3 C 37.3 C Pulse Rate 71 71 70 Respiratory Rate 22 H 32 H Blood Pressure 88/63 L 88/62 L Pulse Oximetry 92 94 92 08/30/21 18:00 08/30/21 19:21 08/30/21 19:47 Temperature Pulse Rate 70 73 72 Respiratory Rate 27 H Blood Pressure 95/64 L Pulse Oximetry 91 08/30/21 20:00 08/30/21 20:15 08/30/21 20:29 Temperature 37.3 C Pulse Rate 70 70 70 Respiratory Rate 18 20 Blood Pressure 94/66 L Pulse Oximetry 91 97 08/30/21 20:30 08/30/21 22:00 08/30/21 23:11 Temperature 37.4 C Pulse Rate 70 77 73 Respiratory Rate 21 H 29 H 24 H Blood Pressure 99/70 L Pulse Oximetry 97 93 94 08/30/21 23:20 08/30/21 23:30 08/31/21 00:00 Temperature 37.4 C Pulse Rate 71 73 Respiratory Rate 25 H Blood Pressure 77/65 L 99/63 L 98/63 L Pulse Oximetry 95 08/31/21 00:32 08/31/21 02:00 08/31/21 03:38 Temperature 37.1 C Pulse Rate 73 71 71 Respiratory Rate 34 H 22 H Blood Pressure 101/68 105/77 Pulse Oximetry 97 94 08/31/21 04:00 08/31/21 05:00 08/31/21 05:34 Temperature 37.1 C Pulse Rate 73 73 76 Respiratory Rate 21 H 32 H Blood Pressure 108/71 109/71 Pulse Oximetry 94 96 08/31/21 06:00 08/31/21 06:30 08/31/21 07:34 Temperature 37.1 C 37.2 C Pulse Rate 79 71 73 Respiratory Rate 91 H 36 H Blood Pressure 101/74 101/74 98/71 L Pulse Oximetry 33 L 95 08/31/21 07:52 08/31/21 08:00 08/31/21 08:07 Temperature Pulse Rate 76 78 80 Respiratory Rate 25 H 37 H Blood Pressure Pulse Oximetry 95 96 08/31/21 09:30 08/31/21 09:39 08/31/21 10:00 Temperature 37.3 C Pulse Rate 73 70 74 Respiratory Rate 25 H 29 H 34 H Blood Pressure 106/87 Pulse Oximetry 97 08/31/21 11:28 08/31/21 11:46 08/31/21 12:00 Temperature 37.5 C Pulse Rate 73 81 75 Respiratory Rate 24 H 34 H Blood Pressure 100/84 98/73 L Pulse Oximetry 96 92 08/31/21 12:35 08/31/21 12:38 08/31/21 13:34 Temperature 37.6 C H Pulse Rate 70 Respiratory Rate 24 H Blood Pressure Pulse Oximetry 98 08/31/21 13:44 08/31/21 13:49 08/31/21 13:53 Temperature Pulse Rate 70 73 Respiratory Rate 25 H 24 H Blood Pressure Pulse Oximetry 99 08/31/21 13:57 Temperature Pulse Rate 73 Respiratory Rate 24 H Blood Pressure Pulse Oximetry Intake/Output Intake/Output: Intake & Output 08/28/21 08/29/21 08/30/21 08/31/21
--- NOTE | 2021-08-31 14:37 | P.PNCROSS_ITS ---
Event Note Event Note Event Note: Discussed with patient's , 3 daughters, patient's sister and patient's brother and the business development representative along with patient advocate Jesica, charge nurse Lorenza, business development representative. I explained in details to the family patient's condition from the time he arrived at the hospital, the course in the hospital, the reason for transfer the ICU. Also discussed with them regarding patient being on vasopressor support and dobutamine for ionotropic support. They are aware that the patient has had acute on chronic kidney injury, nephrology following the patient. They also aware that patient has EF of 30-35% echocardiogram and cardiology is following the patient. They are aware that the patient is currently intubated placed on mechanical ventilation this afternoon for worsening respiratory failure, decreased mentation and hypoxia. I did tell them that I will update a point person from the family on a daily basis. I answered all questions. The requested that patient be a full code and continue full support as being currently done. Also discussed with the that patient has been in the hospital for about 8 days, laying in bed, may have developed weakness. I answered all the questions
--- NOTE | 2021-08-31 14:44 | PC.NURSE ---
Patient wedding ring was removed from patient finger, and given to patient spouse - Nelly. Ring was in a denture cup with patient label attached. Patient daughter was present and witnessed return of ring, and Geoffrey Marin RN was present as well.
--- NOTE | 2021-08-31 14:48 | PM.IMPN ---
Progress Note: A&P Assessment and Plan (1) Hypotension: Code(s): I95.9 - Hypotension, unspecified Status: Acute Assessment and Plan: Cardiogenic shock (2) Hypoxia: Code(s): R09.02 - Hypoxemia Status: Acute Assessment and Plan: secondary to pulmonary edema and or pneumonia patient alternating nasal cannula and BiPAP chest x-ray reviewed Will try a small dose of diuretic (3) Acute exacerbation of CHF (congestive heart failure): Qualifiers: Heart failure type: unspecified Qualified Code(s): I50.9 - Heart failure, unspecified Code(s): I50.9 - Heart failure, unspecified Status: Acute Assessment and Plan: Management in the ICU. Reduced EF, RV dysfunction noted as well. (4) Type 2 diabetes mellitus: Qualifiers: Diabetes mellitus complication status: with hyperglycemia Diabetes mellitus nursing home insulin use: with nursing home use Qualified Code(s): E11.65 - Type 2 diabetes mellitus with hyperglycemia; Z79.4 - [facility] (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 of insulin Code(s): E11.9 - Type 2 diabetes mellitus without complications Status: Acute Assessment and Plan: continue Lantus sliding scale insulin q.4 hours and high scale (5) Pulmonary edema: Code(s): J81.1 - Chronic pulmonary edema Status: Acute Assessment and Plan: Intubated (6) Acute kidney injury: Code(s): N17.9 - Acute kidney failure, unspecified Status: Acute Assessment and Plan: Nephrology following (7) Hyperkalemia: Code(s): E87.5 - Hyperkalemia Status: Acute Assessment and Plan: Monitor (8) Anxiety: Code(s): F41.9 - Anxiety disorder, unspecified Status: Acute Assessment and Plan: Monitor Subjective Date/time seen: 08/31/21 14:48 now intubated Exam Narrative: General: Patient is a pleasant gentleman in no acute distress Lungs/Chest: Trachea central Clear BS B/L, few crackles on bases Cardiac: . Paced rhythm Circulation: Feet are warm Abdomen: Normal bowel sounds.. Soft. NT. ND. Extremities: No clubbing, cyanosis or edema. Warm : Jones in place Neurologic: Patient more withdrawn this morning, but able to answers questions appropriately and follows simple commands in all extremities Skin: No Rash HEENT: patient is legally blind in both eyes Const: General: cooperative, comfortable, no acute distress, well developed, alert and awake Nutritional Appearance: thin Orientation/consciousness: patient oriented x3 HENMT: Head: normal to inspection, normocephalic and atraumatic Ears: hearing grossly normal bilaterally General nose exam: Normal external nose present Face and sinus: normal facial exam Eyes: General: dysmorphic (enophtalmus bilateral blindness) Pupils: Equal, round and reactive pupils present Neck: Neck: normal visual inspection, full ROM, no lymphadenopathy, supple and no JVD Thyroid: thyroid normal Lymphatic: no lymphadenopathy noted Resp: Effort & Inspection: normal respiratory effort and able to speak in complete sentences Auscultation: clear to auscultation bilaterally and crackles (Bases) Cardio: Jugular venous distension: no JVD Rate: regular rate Rhythm: regular rhythm Heart sounds: S1 normal heart sound present and S2 normal heart sound present GI: Inspection: normal to inspection : General: Yes deferred Skin: Rashes: no rashes Wounds: no wounds Neuro: General: patient oriented x3 and CN's II-XI intact bilaterally Cranial nerves: Yes CN's II-XII intact bilaterally and Yes Equal, round and reactive pupils present Cognition (Neuro): normal cognition Speech: normal speech Gait exam (Neuro): Normal gait present Motor exam (neuro): 5/5 motor strength present throughout Sensory Exam: No Sensory deficit (Neuro) Extrem: General: edema and pedal edema bilaterally Psych: Appearance: grossly normal and well kempt Objective Data Vital Signs Vit
[2021-08-31] MEDS: NOREPINEPHRINE 8 MG/D5W 250 ML 8 MG/250 ML BAG 9.38 MG IV CONT (15:04)
[2021-08-31] MEDS: NOREPINEPHRINE 8 MG/D5W 250 ML 8 MG/250 ML BAG 7.5 MG IV CONT (15:29)
--- NOTE | 2021-08-31 16:15 | PM.PNCARD ---
Progress Note: A&P Assessment and Plan (1) Acute exacerbation of CHF (congestive heart failure): Qualifiers: Heart failure type: unspecified Qualified Code(s): I50.9 - Heart failure, unspecified Code(s): I50.9 - Heart failure, unspecified Status: Acute Assessment and Plan: Acute on chronic systolic and diatolic CHF. Worsening shortness of breath over the past 3 weeks with bilateral pleural effusions noted on chest x-ray. He is s/p thoracentesis on 08/26 with 1L fluid evacuated. Furosemide and antihypertensives on hold at this time due to hypotension On Dobutamine 5 mcg/kg/min for hemodynamic support Pacing rate increased to 70 ppm. Resume GDMT with losartan and metoprolol when BP able to tolerate. Unable to use ARNI because he has an JUSTIN allergy. Could optimize medical therapy with addition of spironolactone when kidney function improves. Monitor renal function and electrolytes with serial BMP; renal fxn improving. Cont dobutamine and supportive care (2) Nonischemic cardiomyopathy: Code(s): I42.8 - Other cardiomyopathies Status: Acute Assessment and Plan: EF has declined since pt was at the [place] in July; EF ws 40-45%, now 30-35%. (3) Shock: Code(s): R57.9 - Shock, unspecified Status: Acute Assessment and Plan: Cardiogenic? shock requiring Levophed (4) Pneumonia: Code(s): J18.9 - Pneumonia, unspecified organism Status: Acute Assessment and Plan: I suspect pneumonia; not much edema that would be consistent w/ CHF, and main issue is poor oxygenation. COVID negative 08/24/2021 Antibiotic overage expanded (5) NSVT (nonsustained ventricular tachycardia): Code(s): I47.2 - Ventricular tachycardia Status: Acute Assessment and Plan: Infrequent brief NSVT noted on telemetry. Resume BB when BP better., keep K+ WNL. (6) Status post biventricular pacemaker: Code(s): Z95.0 - Presence of cardiac pacemaker Status: Acute Assessment and Plan: Medtronic device implanted in July 2021 for CHB. [facility] Not an [facility]. Interrogation shows normal fxn. Subjective Date/time seen: 08/31/21 16:15 Interval history: Interval history: 76-year-old admitted for shortness of breath and acute CHF. EF 30-35%. Has a Medtronic Bi V pacemaker (not an ICD) implanted 07/2021. Date of service 08/27/2021: Complains of constipation. No chest pain. Is short of breath with activity. Date of service 08/28/2021: CPAP in place. No chest pain or shortness of breath is documented Date of service 08/29/2021: He has been transferred to the ICU for higher of level of care d/t hypotension. Currently on BiPAP, resting comfortably but is somnolent. Pacing rate increased from 50-70. Started on dobutamine and Levophed. Date of service 08/30/2021: Patient says he is feeling better, breathing better. Was on BiPAP overnight, now 4 L nasal cannula. Remains on Levophed 1 mcg , dobutamine 5 mcg. Telemetry shows sinus rhythm, ventricular pacing. Daughters at bedside. Medtronic Bi V ICD interrogated, normal function, rate reprogrammed to 70 beats per minute. Longevity 9 years. Date of service 08/31/2021: Pt unfortunately took a turn for the worse and was intubated today due to worsening respiratory failure, decreased mentation and hypoxia. Remains on levophed up to 3 mcg and dobutamine 5 mcg. Antibiotic coverage expanded. 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 echo 07/2021 showed EF 40-45%, severe hypokinesis of the inferior wall, diastolic dysfunction, mild left ventricular enlargement, no significant valve disease. Hypertension, hyperlipidemia, diabetes. Had Admission July 2021 for CHF and acute kidne
[2021-08-31 16:36] LABS: Glucose Point of Care 193 mg/dl (65-105)
[2021-08-31 21:21] LABS: Glucose Point of Care 136 mg/dl (65-105)
[2021-08-31] MEDS: MINERAL OIL/WHITE PETROLATUM OINTMENT 1 APPLIC EACH EYE (21:21)
[2021-08-31 22:38] LABS: Alveolar/Arterial O2 Gradient 180.8 mmHg; Carboxyhemoglobin 0.4 % THb (0-2.0); Fractional Inspired Oxygen 40 %; HCO3 ABG 23.9 mEq/l (22.0-26.0); Methemoglobin ABG 0.3 %THb (0-1.5); Oxygen Content ABG 18.6 %vol (16.0-22.0); Oxygen Saturation ABG 94.6 % (95.0-100.0); Oxyhemoglobin 92.3 % THb (90.0-100.0); PO2 ABG 66.5 mmHg (80.0-100.0); PO2 FiO2 Ratio Arterial Blood 1.66 %; Total Hemoglobin 14.3 g/dL (12.0-18.0); pH ABG 7.477 (7.350-7.450)
[2021-08-31 22:39] LABS: Device VENTILATOR; Modified Allen's Test Pass; Site Drawn RIGHT RADIAL
[2021-08-31 22:41] LABS: Arterial Blood Gas PEEP 8 cmH2O; Arterial Blood Gas Tidal Volume 450 ml; Arterial Blood Gas Vent Mode CMV; Arterial Blood Gas Ventilator rate 20 /MIN
--- NOTE | 2021-08-31 22:58 | PC.NURSE ---
Updated Dr. Johnston regarding ABG, increased Levophed, and current blood pressure. Decrease Dobutamine drip to 2.5mcg. Add in Vasopressin if patient reaches 20mcg of Levophed. Decrease sedation as tolerated for Rass of -2.
[2021-08-31] MEDS: VASOPRESSIN INJ 100 UNITS in DEXTROSE 5% 95 ML IV CONT (23:36)
[2021-09-01] VITALS (70 sets, daily range): BP systolic 69–144; BP diastolic 50–95; PULSE 50–115; RESP 16–20; TEMP 37.6–38.6; O2SAT 90–100; BMI 26.9
[2021-09-01 00:51] LABS: Glucose Point of Care 194 mg/dl (65-105)
[2021-09-01] MEDS: ALBUTEROL SULFATE NEB 2.5 MG/3 ML INH INHALATION ×4 (01:35→20:12)
[2021-09-01] MEDS: IPRATROPIUM BR 0.02% INH SOLN 0.5 MG/2.5 ML VIAL INHALATION ×4 (01:35→20:12)
--- NOTE | 2021-09-01 01:43 | PCRCNOTE ---
Aerogen nebulizer put inline for scheduled Q6H nebulizer treatment delivery.
[2021-09-01] MEDS: NOREPINEPHRINE 8 MG/D5W 250 ML 8 MG/250 ML BAG 18.75 MG IV CONT (04:44)
[2021-09-01 05:01] LABS: Alveolar/Arterial O2 Gradient 194.4 mmHg; Base Excess ABG 1.2 mEq/l (+/-2.0); Carboxyhemoglobin 0.2 % THb (0-2.0); Fractional Inspired Oxygen 45 %; HCO3 ABG 21.8 mEq/l (22.0-26.0); Methemoglobin ABG 0.2 %THb (0-1.5); Oxygen Content ABG 18.5 %vol (16.0-22.0); Oxygen Saturation ABG 98.3 % (95.0-100.0); Oxyhemoglobin 97.1 % THb (90.0-100.0); PCO2 ABG 24.6 mmHg (35.0-45.0); PO2 ABG 98.5 mmHg (80.0-100.0); PO2 FiO2 Ratio Arterial Blood 2.19 %; Reduced Hemoglobin 2.5 %THb (0-5.0); Total Hemoglobin 13.5 g/dL (12.0-18.0)
[2021-09-01 05:03] LABS: Site Drawn RIGHT RADIAL; pH ABG 7.566 (7.350-7.450)
[2021-09-01 05:04] LABS: Arterial Blood Gas PEEP 8 cmH2O; Arterial Blood Gas Tidal Volume 450 ml; Arterial Blood Gas Vent Mode CMV; Arterial Blood Gas Ventilator rate 20 /MIN; Device VENTILATOR; Modified Allen's Test Pass
[2021-09-01 05:09] LABS: Hematocrit 37.2 % (42.0-52.0); Hemoglobin 12.1 g/dL (14.0-18.0); Mean Corpuscular HGB Conc 32.5 g/dl (32-36); Mean Corpuscular Volume 92.3 fl (80-100); Mean Platelet Volume 11.2 fl (7.4-10.4); Platelet Count Result 149 k/mm3 (150-375); Red Blood Count 4.03 M/mm3 (4.6-6.20); Red Cell Distribution Width 15.6 % (11.5-14.5); White Blood Count 8.4 K/mm3 (4.5-10.0)
[2021-09-01 05:21] LABS: Alanine Aminotransferase 16 U/L (6-50); Albumin Level 3.1 g/dL (3.5-5.1); Alkaline Phosphatase 77 U/L (38-126); Anion Gap 7 mmol/L (8-16); Aspartate Amino Transferase 22 U/L (17-59); Bilirubin,Total 2.3 mg/dL (0.2-1.3); Blood Urea Nitrogen 68 mg/dL (9-20); Calcium 7.9 mg/dL (8.4-10.2); Carbon Dioxide 24 mmol/L (22-30); Chloride 98 mmol/L (98-107); Estimated CRCL calculation 33 ml/min; Estimated Glomerular Filt Rate 48; Glucose 223 mg/dL (65-110); Magnesium 2.8 mg/dL (1.6-2.3); Phosphorus 3.6 mg/dL (2.5-4.5); Sodium 129 mmol/L (137-145)
[2021-09-01] MEDS: CENTRAL LINE FLUSH 10 ML IV PUSH ×3 (05:47→20:59)
[2021-09-01] MEDS: INSULIN ASPART (*BKC) 100 UNITS/ML SUB-Q (05:47)
[2021-09-01] MEDS: ESCITALOPRAM OXALATE 10 MG TABLET 20 MG PO (08:08)
[2021-09-01] MEDS: ENOXAPARIN 40 MG/0.4 ML SYRINGE SUB-Q (08:09)
[2021-09-01] MEDS: INSULIN GLARGINE (*BKC) 100 UNITS/ML 12 UNITS SUB-Q (08:09)
[2021-09-01] MEDS: POLYMYXIN/TRIMETHOPRIM OPHTH 10 ML DROPS 1 DROP EACH EYE ×2 (08:10→20:42)
[2021-09-01] MEDS: DORZOLAMIDE/TIMOLOL OPHTH SOL 10 ML BOTTLE 1 DROP EACH EYE ×2 (08:10→20:42)
[2021-09-01] MEDS: LATANOPROST 0.005% OP SOLN 2.5 ML BTL 1 DROP EACH EYE (08:10)
[2021-09-01] MEDS: ACETAMINOPHEN ELIXIR 325 MG/10.15 ML UDC 650 MG PO (08:16)
[2021-09-01] MEDS: ASPIRIN 81 MG CHEWABLE TABLET PO (08:17)
[2021-09-01] MEDS: MULTIVITAMINS /C LUTEIN (CENTRUM SILVER) TABLET *BKC 1 TAB BY MOUTH (08:17)
[2021-09-01] MEDS: MINERAL OIL/WHITE PETROLATUM OINTMENT 1 APPLIC EACH EYE ×2 (08:18→20:42)
[2021-09-01] MEDS: polyethylene glycoL 3350 17 GM POWD.PACK PO (08:19)
[2021-09-01] MEDS: PSYLLIUM SUGAR FREE POWDER PACKET 1 PACKET PO (08:30)
[2021-09-01] MEDS: hetaSTARCH 6%/NACL 500 ML 250 ML IV CONT (08:44)
[2021-09-01 08:45] LABS: Lactic Acid Reflex 1.4 mmol/L (0.7-2.0)
[2021-09-01] MEDS: DOBUTamine 250 MG/D5W 250 ML 250 MG/250 ML BAG 22.44 MG IV CONT ×2 (08:50→19:22)
[2021-09-01] MEDS: DOBUTamine 250 MG/D5W 250 ML 250 MG/250 ML BAG 11.22 MG IV CONT (08:50)
[2021-09-01] MEDS: ALBUMIN HUMAN 25% 25 GM/100 ML 100 ML IVPB ×2 (11:12→17:17)
--- NOTE | 2021-09-01 11:23 | PM.IMPN ---
Progress Note: A&P Assessment and Plan (1) Hypotension: Code(s): I95.9 - Hypotension, unspecified Status: Acute Assessment and Plan: Cardiogenic shock (2) Hypoxia: Code(s): R09.02 - Hypoxemia Status: Acute Assessment and Plan: secondary to pulmonary edema and or pneumonia management per ICU continue abx (3) Acute exacerbation of CHF (congestive heart failure): Qualifiers: Heart failure type: unspecified Qualified Code(s): I50.9 - Heart failure, unspecified Code(s): I50.9 - Heart failure, unspecified Status: Acute Assessment and Plan: Management in the ICU / cardiology Reduced EF, RV dysfunction noted as well. (4) Type 2 diabetes mellitus: Qualifiers: Diabetes mellitus complication status: with hyperglycemia Diabetes mellitus terminal superintendent insulin use: with terminal superintendent use Qualified Code(s): E11.65 - Type 2 diabetes mellitus with hyperglycemia; Z79.4 - terminal computer operator (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 of insulin Code(s): E11.9 - Type 2 diabetes mellitus without complications Status: Acute Assessment and Plan: continue Lantus sliding scale insulin q.4 hours and high scale (5) Pulmonary edema: Code(s): J81.1 - Chronic pulmonary edema Status: Acute Assessment and Plan: see plan above (6) Acute kidney injury: Code(s): N17.9 - Acute kidney failure, unspecified Status: Acute Assessment and Plan: Nephrology following (7) Hyperkalemia: Code(s): E87.5 - Hyperkalemia Status: Acute Assessment and Plan: Monitor (8) Anxiety: Code(s): F41.9 - Anxiety disorder, unspecified Status: Acute Assessment and Plan: Monitor Subjective Date/time seen: 09/01/21 11:23 no significant change Exam Narrative: General: Patient is a pleasant gentleman in no acute distress Lungs/Chest: Trachea central Clear BS B/L, few crackles on bases Cardiac: . Paced rhythm Circulation: Feet are warm Abdomen: Normal bowel sounds.. Soft. NT. ND. Extremities: No clubbing, cyanosis or edema. Warm : Jones in place Neurologic: Patient more withdrawn this morning, but able to answers questions appropriately and follows simple commands in all extremities Skin: No Rash HEENT: patient is legally blind in both eyes Const: General: cooperative, comfortable, no acute distress, well developed, alert and awake Nutritional Appearance: thin Orientation/consciousness: patient oriented x3 HENMT: Head: normal to inspection, normocephalic and atraumatic Ears: hearing grossly normal bilaterally General nose exam: Normal external nose present Face and sinus: normal facial exam Eyes: General: dysmorphic (enophtalmus bilateral blindness) Pupils: Equal, round and reactive pupils present Neck: Neck: normal visual inspection, full ROM, no lymphadenopathy, supple and no JVD Thyroid: thyroid normal Lymphatic: no lymphadenopathy noted Resp: Effort & Inspection: normal respiratory effort and able to speak in complete sentences Auscultation: clear to auscultation bilaterally and crackles (Bases) Cardio: Jugular venous distension: no JVD Rate: regular rate Rhythm: regular rhythm Heart sounds: S1 normal heart sound present and S2 normal heart sound present GI: Inspection: normal to inspection : General: Yes deferred Skin: Rashes: no rashes Wounds: no wounds Neuro: General: patient oriented x3 and CN's II-XI intact bilaterally Cranial nerves: Yes CN's II-XII intact bilaterally and Yes Equal, round and reactive pupils present Cognition (Neuro): normal cognition Speech: normal speech Gait exam (Neuro): Normal gait present Motor exam (neuro): 5/5 motor strength present throughout Sensory Exam: No Sensory deficit (Neuro) Extrem: General: edema and pedal edema bilaterally Psych: Appearance: grossly normal and well kempt Objective Data Vital Signs Vital Signs: Vital Signs - 24 hr 08/31/21
--- NOTE | 2021-09-01 11:34 | PM.PNNEP ---
Progress Note: A&P Additional Plan 1. Possible chronic kidney disease. his creatinine seemed to be stabilizing at 1.6. now that he has decompensated his creatinine will probably rise. 2. the patient has acute kidney injury. currently due to hypotension, prerenal factors. renal sono is negative .urine 'lytes prerenal UA shows some blood and wbcs. on antibiotidsc ck is okay continue to give supportive care. He is back on pressors and is intubated. discussed with Dr Johnston 3. hypertension. off antihypertensives currently 4. Hypotension. due to infx vs cardiogenic? supportive care. 5. Diabetes: The patient is on sliding scale insulin and Accu-Cheks per hospitalist. 6. hypoxia: The patient is on the ventilator. 7. acidosis resolved now 8. Congestive heart failure. He continues on dobutamine drip. Subjective Date/time seen: 09/01/21 11:34 Interval history: the patient is worse he had to be intubated and is on pressors due to low bp. U.O. only 200cc overnight. sedated. Exam Narrative: WDWN in NAD skin no rash head ncat lungs coarse cor reg no rub abd BS hypoactive. ext no edema or cyanosis. Objective Data Vital Signs Vital Signs: Vital Signs - 24 hr 08/31/21 11:46 08/31/21 12:00 08/31/21 12:35 Temperature 37.5 C Pulse Rate 81 75 70 Respiratory Rate 24 H 34 H 24 H Blood Pressure 98/73 L Pulse Oximetry 96 92 08/31/21 12:38 08/31/21 13:34 08/31/21 13:44 Temperature 37.6 C H Pulse Rate 70 Respiratory Rate 25 H Blood Pressure Pulse Oximetry 98 08/31/21 13:49 08/31/21 13:53 08/31/21 13:57 Temperature Pulse Rate 73 73 Respiratory Rate 24 H 24 H Blood Pressure Pulse Oximetry 99 08/31/21 14:00 08/31/21 14:30 08/31/21 14:31 Temperature 37.5 C 37.5 C Pulse Rate 70 69 Respiratory Rate 20 20 Blood Pressure 87/58 L Pulse Oximetry 100 08/31/21 14:42 08/31/21 14:44 08/31/21 14:55 Temperature Pulse Rate 70 70 70 Respiratory Rate 23 H 23 H 22 H Blood Pressure Pulse Oximetry 05/18/22 15:04 08/31/21 15:15 08/31/21 15:16 Temperature Pulse Rate 70 70 70 Respiratory Rate 20 20 Blood Pressure 81/59 L Pulse Oximetry 08/31/21 15:29 08/31/21 16:00 08/31/21 16:05 Temperature 37.1 C Pulse Rate 70 70 72 Respiratory Rate 20 Blood Pressure 114/72 101/70 101/70 Pulse Oximetry 100 08/31/21 17:00 08/31/21 17:02 08/31/21 17:03 Temperature Pulse Rate 70 70 70 Respiratory Rate 20 20 Blood Pressure Pulse Oximetry 100 08/31/21 17:06 08/31/21 17:07 08/31/21 17:08 Temperature Pulse Rate 70 70 70 Respiratory Rate 20 Blood Pressure 98/66 L 98/66 L Pulse Oximetry 08/31/21 17:31 08/31/21 17:40 08/31/21 18:00 Temperature 37.1 C Pulse Rate 70 73 72 Respiratory Rate 20 Blood Pressure 96/65 L 93/63 L Pulse Oximetry 98 08/31/21 20:00 08/31/21 20:04 08/31/21 20:10 Temperature Pulse Rate 79 75 78 Respiratory Rate 20 Blood Pressure Pulse Oximetry 98 08/31/21 20:15 08/31/21 20:48 08/31/21 21:00 Temperature 38.1 C H Pulse Rate 79 79 98 Respiratory Rate 20 20 21 H Blood Pressure 103/79 Pulse Oximetry 08/31/21 21:07 08/31/21 22:00 08/31/21 22:06 Temperature 37.9 C H 38.3 C H Pulse Rate 88 87 Respiratory Rate 20 20 Blood Pressure 75/46 L Pulse Oximetry 96 08/31/21 22:15 08/31/21 22:17 08/31/21 22:59 Temperature 38.4 C H Pulse Rate 85 79 Respiratory Rate Blood Pressure 74/51 L 82/65 L Pulse Oximetry 08/31/21 23:01 08/31/21 23:03 08/31/21 23:15 Temperature Pulse Rate 76 75 74 Respiratory Rate 20 Blood Pressure 73/55 L 89/63 L Pulse Oximetry 08/31/21 23:18 08/31/21 23:23 08/31/21 23:36 Temperature Pulse Rate 74 78 74 Respiratory Rate 20 Blood Pressure 81/58 L Pulse Oximetry 98 08/31/21 23:51 09/01/21 00:00 09/01/21 00:15 Temperature 38.6 C H Pulse Rate 81 76 70 Res
--- NOTE | 2021-09-01 11:50 | WPDINTPN ---
Progress Note: A&P Assessment and Plan (1) Acute respiratory failure: Code(s): J96.00 - Acute respiratory failure, unspecified whether with hypoxia or hypercapnia Status: Acute Assessment and Plan: Acute respiratory failure likely related to congestive heart failure, pneumonia -08/31: patient had increased work of breathing, tachypneic, hypoxic, was in impending respiratory failure, patient was successfully intubated and placed on mechanical ventilation -currently on CMV mode of ventilation, peep of 8, 45% FiO2 -chest x-ray this morning shows small to moderate left pleural effusion, persistent opacities in bilateral lower lung zones left greater than right -ABGs reviewed, ventilator adjusted -patient on low-dose fentanyl and Versed infusion for sedation, maintain RASS of 0 to -2, daily sedation vacation -continue bronchodilators -09/01: Blood and sputum cultures have been obtained -hold diuresis, given septic shock and: Pressors (2) Pneumonia: Code(s): J18.9 - Pneumonia, unspecified organism Status: Acute Assessment and Plan: Continue cefepime and vancomycin -continue bronchodilator -sputum cultures have been obtained and pending (3) Shock: Code(s): R57.9 - Shock, unspecified Status: Acute Assessment and Plan: Patient with hypotension likely combination of cardiogenic and septic shock -patient will be given albumin and Hespan after discussion with Nephrology -continue Levophed and vasopressin, will maintain mean arterial pressures > 65 mmHg -continue dobutamine at 5 mcg/kg/min -Lactic acid was within normal limits Right IJ central line placed on 08/29. Right femoral central line was attempted but could not advance the catheter (4) Acute exacerbation of CHF (congestive heart failure): Qualifiers: Heart failure type: unspecified Qualified Code(s): I50.9 - Heart failure, unspecified Code(s): I50.9 - Heart failure, unspecified Status: Acute Assessment and Plan: Diuretics and antihypertensives are on hold due to low blood pressure and on pressors OFF Levophed Continue dobutamine Cardiology following the patient Echo reviewed and shows 1. Complete two-dimensional, color flow and Doppler transthoracic echocardiogram is performed. 2. Left ventricular systolic function is moderately reduced, estimated at 30-35%. Flat interventricular septum consistent with increased RV pressure load. 3. There is severely increased left ventricular wall thickness. 4. The left ventricular diastolic function is abnormal. 5. Right ventricular chamber dimension is moderately enlarged. Linear artifact consistent with pacemaker wire. 6. Right ventricular systolic function is reduced. 7. Right atrial chamber dimension is moderately enlarged. 8. Bowing of the interatrial septum to the left by 2D imaging. 9. There is trace aortic valve regurgitation. 10. There is mild aortic valve sclerosis. 11. There is mild mitral valve regurgitation. 12. There is mild tricuspid valve regurgitation. 13. Mild pulmonary hypertension, estimated pulmonary arterial systolic pressure is 39 mmHg. (5) Type 2 diabetes mellitus: Qualifiers: Diabetes mellitus complication status: with hyperglycemia Diabetes mellitus usp insulin use: with usp use Qualified Code(s): E11.65 - Type 2 diabetes mellitus with hyperglycemia; Z79.4 - cardiopulmonary technician (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 of insulin Code(s): E11.9 - Type 2 diabetes mellitus without complications Status: Acute Assessment and Plan: Uncontrolled, A1c is 7.9 this admission continue Lantus sliding scale insulin q.4 hours and high scale (6) Pulmonary edema: Code(s): J81.1 - Chronic pulmonary edema Status: Acute Assessment and Plan: Currently on mechanical ventilation with a PEEP of 8 -hold diuresis due to septic/cardiogenic shock, hypotension (7) Acute kidney injury: Code(s): N17.9
[2021-09-01 12:09] LABS: Glucose Point of Care 164 mg/dl (65-105)
[2021-09-01 12:30] LABS: Glucose Point of Care 199 mg/dl (65-105)
[2021-09-01] MEDS: PANTOPRAZOLE SODIUM IV 40 MG VIAL IV PUSH (12:59)
[2021-09-01 14:57] LABS: Expiratory Pressure 5 cmH2O; Inspiratory Pressure 15 cmH2O
[2021-09-01] MEDS: NOREPINEPHRINE 8 MG/D5W 250 ML 8 MG/250 ML BAG 13.13 MG IV CONT (17:16)
[2021-09-01 17:27] LABS: Glucose Point of Care 148 mg/dl (65-105)
[2021-09-01 21:23] LABS: Glucose Point of Care 180 mg/dl (65-105)
[2021-09-02] VITALS (101 sets, daily range): BP systolic 81–137; BP diastolic 62–94; PULSE 70–93; RESP 13–22; TEMP 35.9–37.7; O2SAT 93–100
[2021-09-02] MEDS: ALBUMIN HUMAN 25% 25 GM/100 ML 100 ML IVPB ×2 (00:42→05:10)
[2021-09-02] MEDS: INSULIN ASPART (*BKC) 100 UNITS/ML SUB-Q ×2 (00:53→17:01)
[2021-09-02 00:59] LABS: Glucose Point of Care 226 mg/dl (65-105)
[2021-09-02] MEDS: IPRATROPIUM BR 0.02% INH SOLN 0.5 MG/2.5 ML VIAL INHALATION ×4 (02:04→19:45)
[2021-09-02] MEDS: ALBUTEROL SULFATE NEB 2.5 MG/3 ML INH INHALATION ×4 (02:04→19:44)
[2021-09-02] MEDS: FENTANYL 2,500MCG/NS250ML(*CRX 2,500 MCG/250 ML BAG IV CONT (03:20)
[2021-09-02 04:17] LABS: Glucose Point of Care 178 mg/dl (65-105)
[2021-09-02 04:20] LABS: Hematocrit 31.2 % (42.0-52.0); Hemoglobin 10.2 g/dL (14.0-18.0); Mean Corpuscular HGB Conc 32.7 g/dl (32-36); Mean Corpuscular Hemoglobin 30.5 pg (26-34); Mean Corpuscular Volume 93.4 fl (80-100); Mean Platelet Volume 11.1 fl (7.4-10.4); Platelet Count Result 120 k/mm3 (150-375); Red Blood Count 3.34 M/mm3 (4.6-6.20); White Blood Count 7.2 K/mm3 (4.5-10.0)
[2021-09-02 04:28] LABS: Alanine Aminotransferase 17 U/L (6-50); Albumin Level 3.7 g/dL (3.5-5.1); Alkaline Phosphatase 71 U/L (38-126); Anion Gap 10 mmol/L (8-16); Aspartate Amino Transferase 31 U/L (17-59); Bilirubin,Total 2.2 mg/dL (0.2-1.3); Blood Urea Nitrogen 73 mg/dL (9-20); Calcium 7.7 mg/dL (8.4-10.2); Carbon Dioxide 24 mmol/L (22-30); Chloride 95 mmol/L (98-107); Estimated CRCL calculation 23 ml/min; Estimated Glomerular Filt Rate 31; Glucose 253 mg/dL (65-110); Magnesium 2.8 mg/dL (1.6-2.3); Phosphorus 5.9 mg/dL (2.5-4.5); Potassium 4.6 mmol/L (3.4-5.0); Sodium 129 mmol/L (137-145)
[2021-09-02 04:29] LABS: Lactic Acid Reflex 1.6 mmol/L (0.7-2.0)
[2021-09-02] MEDS: CENTRAL LINE FLUSH 10 ML IV PUSH ×3 (05:11→22:14)
[2021-09-02 05:49] LABS: Alveolar/Arterial O2 Gradient 234.5 mmHg; Base Excess ABG -3.5 mEq/l (+/-2.0); Carboxyhemoglobin 0.3 % THb (0-2.0); Fractional Inspired Oxygen 50 %; HCO3 ABG 20.9 mEq/l (22.0-26.0); Oxygen Content ABG 15.1 %vol (16.0-22.0); Oxygen Saturation ABG 96.1 % (95.0-100.0); Oxyhemoglobin 94.6 % THb (90.0-100.0); PCO2 ABG 35.5 mmHg (35.0-45.0); PO2 ABG 82.1 mmHg (80.0-100.0); PO2 FiO2 Ratio Arterial Blood 1.64 %; Reduced Hemoglobin 5.1 %THb (0-5.0); Total Hemoglobin 11.3 g/dL (12.0-18.0); pH ABG 7.388 (7.350-7.450)
[2021-09-02 05:52] LABS: Arterial Blood Gas PEEP 8 cmH2O; Arterial Blood Gas Tidal Volume 450 ml; Arterial Blood Gas Vent Mode CMV; Arterial Blood Gas Ventilator rate 16 /MIN; Device VENTILATOR; Modified Allen's Test Pass; Site Drawn RIGHT RADIAL
[2021-09-02] MEDS: DOBUTamine 250 MG/D5W 250 ML 250 MG/250 ML BAG 22.44 MG IV CONT ×2 (07:36→17:36)
--- NOTE | 2021-09-02 08:27 | WPDINTPN ---
Progress Note: A&P Assessment and Plan (1) Acute respiratory failure: Code(s): J96.00 - Acute respiratory failure, unspecified whether with hypoxia or hypercapnia Status: Acute Assessment and Plan: Acute respiratory failure likely related to congestive heart failure, pneumonia -08/31: patient had increased work of breathing, tachypneic, hypoxic, was in impending respiratory failure, patient was successfully intubated and placed on mechanical ventilation -currently on CMV mode of ventilation, peep of 8, 45% FiO2 -09/02: chest x-ray this morning shows Diffuse lung disease with interval worsening, consistent with pneumonia and/or pulmonary edema. -ABGs reviewed, ventilator adjusted -patient on low-dose fentanyl and Versed infusion for sedation, maintain RASS of 0 to -2, daily sedation vacation -continue bronchodilators -09/01: Blood and sputum cultures have been obtained -hold diuresis, given septic shock and Pressors (2) Pneumonia: Code(s): J18.9 - Pneumonia, unspecified organism Status: Acute Assessment and Plan: Continue cefepime and vancomycin -continue bronchodilator -sputum cultures have been obtained and pending (3) Shock: Code(s): R57.9 - Shock, unspecified Status: Acute Assessment and Plan: Patient with hypotension likely combination of cardiogenic and septic shock -s/p Hespan and Albumin on 09/01 -continue Levophed and vasopressin, will maintain mean arterial pressures > 65 mmHg -continue dobutamine at 5 mcg/kg/min -Lactic acid of 1.6 this am Right IJ central line placed on 08/29. Right femoral central line was attempted but could not advance the catheter - 09/01: blood and urine cx No growth (4) Acute exacerbation of CHF (congestive heart failure): Qualifiers: Heart failure type: unspecified Qualified Code(s): I50.9 - Heart failure, unspecified Code(s): I50.9 - Heart failure, unspecified Status: Acute Assessment and Plan: continue Levophed and vasopressin Continue dobutamine Cardiology following the patient Hold diuretics Echo reviewed and shows 1. Complete two-dimensional, color flow and Doppler transthoracic echocardiogram is performed. 2. Left ventricular systolic function is moderately reduced, estimated at 30-35%. Flat interventricular septum consistent with increased RV pressure load. 3. There is severely increased left ventricular wall thickness. 4. The left ventricular diastolic function is abnormal. 5. Right ventricular chamber dimension is moderately enlarged. Linear artifact consistent with pacemaker wire. 6. Right ventricular systolic function is reduced. 7. Right atrial chamber dimension is moderately enlarged. 8. Bowing of the interatrial septum to the left by 2D imaging. 9. There is trace aortic valve regurgitation. 10. There is mild aortic valve sclerosis. 11. There is mild mitral valve regurgitation. 12. There is mild tricuspid valve regurgitation. 13. Mild pulmonary hypertension, estimated pulmonary arterial systolic pressure is 39 mmHg. (5) Type 2 diabetes mellitus: Qualifiers: Diabetes mellitus complication status: with hyperglycemia Diabetes mellitus mcfp insulin use: with mcfp use Qualified Code(s): E11.65 - Type 2 diabetes mellitus with hyperglycemia; Z79.4 - vermin exterminator (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 of insulin Code(s): E11.9 - Type 2 diabetes mellitus without complications Status: Acute Assessment and Plan: Uncontrolled, A1c is 7.9 this admission continue Lantus sliding scale insulin q.4 hours and high scale (6) Pulmonary edema: Code(s): J81.1 - Chronic pulmonary edema Status: Acute Assessment and Plan: Currently on mechanical ventilation with a PEEP of 8 -hold diuresis due to septic/cardiogenic shock, hypotension pt may require CRRT, will d/w Nephrology (7) Acute kidney injury: Code(s): N17.9 - Acute kidney failure, unspecified
[2021-09-02] MEDS: INSULIN GLARGINE (*BKC) 100 UNITS/ML 12 UNITS SUB-Q (08:50)
[2021-09-02] MEDS: DORZOLAMIDE/TIMOLOL OPHTH SOL 10 ML BOTTLE 1 DROP EACH EYE ×2 (08:52→22:14)
[2021-09-02] MEDS: LATANOPROST 0.005% OP SOLN 2.5 ML BTL 1 DROP EACH EYE (08:52)
[2021-09-02] MEDS: ASPIRIN 81 MG CHEWABLE TABLET PO (08:52)
[2021-09-02] MEDS: MINERAL OIL/WHITE PETROLATUM OINTMENT 1 APPLIC EACH EYE ×2 (08:52→22:14)
[2021-09-02] MEDS: POLYMYXIN/TRIMETHOPRIM OPHTH 10 ML DROPS 1 DROP EACH EYE ×2 (08:52→22:14)
[2021-09-02] MEDS: ENOXAPARIN 40 MG/0.4 ML SYRINGE SUB-Q (08:54)
[2021-09-02] MEDS: PANTOPRAZOLE SODIUM IV 40 MG VIAL IV PUSH (08:54)
[2021-09-02] MEDS: ESCITALOPRAM OXALATE 10 MG TABLET 20 MG PO (08:54)
[2021-09-02] MEDS: polyethylene glycoL 3350 17 GM POWD.PACK PO (08:54)
[2021-09-02] MEDS: PSYLLIUM SUGAR FREE POWDER PACKET 1 PACKET PO (08:55)
[2021-09-02] MEDS: MULTIVITAMINS /C LUTEIN (CENTRUM SILVER) TABLET *BKC 1 TAB BY MOUTH (08:55)
[2021-09-02] MEDS: VASOPRESSIN INJ 100 UNITS in DEXTROSE 5% 95 ML IV CONT (09:14)
[2021-09-02 09:25] LABS: Glucose Point of Care 171 mg/dl (65-105)
--- NOTE | 2021-09-02 11:45 | PCNFU ---
Nutrition Follow-Up Complete: Inadequate Oral Intake as related to mechanical ventilation as evidenced by tube feedings. Goal: Meet estimated nutritional needs Patient is progressing towards goal. We will continue current goal. Pt current nutrition is Nepro at 20 ml/hr over 22 hours. Last recorded weight is 79.6 kg, down from 80.5 kg on admit. Bowel Motility: +BM reported 08/31 Labs Reviewed:Na 129, BUN 73, Glu 253,Mg 2.8, BUN 73, Hgb 10.2, Hct 31.2 Meds Noted:Fentanyl, Versed, Levophed, Vancomycin, Miralax, Protonix, Metamucil. Skin: WNL Additional Notes: Patient remains on mechanical vent. Tube feeding formula change today to Nepro due elevated renal labs. Tube feedings of Nepro at 20 ml/hr. Recommend goal rate of tube feeding at 50 ml/hr providing 1980 kcals/89 gms protein/ 800 ml water. Free water flush 30 ml q 4 hours. Monitoring in ICU rounds and reassess every Sunday and Sunday.
[2021-09-02 12:11] LABS: Kappa\\Lambda Light Chains 2.78 (0.26-1.65); Lambda Light Chain 14.5 mg/L (5.7-26.3)
[2021-09-02 12:19] LABS: Glucose Point of Care 131 mg/dl (65-105)
--- NOTE | 2021-09-02 12:58 | PM.PNNEP ---
Progress Note: A&P Additional Plan 1. Possible chronic kidney disease. his creatinine looks like it has a baseline of around 1.6. 2. the patient has acute kidney injury. renal sono is negative .urine 'lytes prerenal UA shows some blood and wbcs. on antibiotidsc ck is okay currently due to hypotension, prerenal factors. He most certainly has a severe pneumonia involving the left lower lobe. This may be leading to ATN. He also has hypotension. Although his hemodynamic status is improving. He also has a poor cardiac output which is underlying all of this. He is on dobutamine to improve cardiac output. continue to give supportive care. Pressors are being weaned. discussed with Dr Johnston I agree with giving about a liter of IV fluids. Will reassess tomorrow. He may end up needing dialysis if his urine output does not improve depending on his oxygenation and other labs. 3. hypertension. off antihypertensives currently 4. Hypotension. due to infx vs cardiogenic? Cultures are negative so far. He is on antibiotics just in case. Continue supportive care. 5. Diabetes: The patient is on sliding scale insulin and Accu-Cheks per hospitalist. 6. hypoxia: The patient is on the ventilator. 7. acidosis resolved now 8. Congestive heart failure. He continues on dobutamine drip. 9. the patient has hyponatremia. Sodium level dropped yesterday to 129 but is the same today. Since he is on fewer drips, and since he is going to get some normal saline, his sodium level may improve. We will keep an eye on this. Subjective Date/time seen: 09/02/21 12:58 Interval history: the patient is about the same today. He is still intubated. His blood pressure is a little bit better. He is off is vasopressin and his norepinephrine is being weaned. Urine output is still meager. sedated. Exam Narrative: WDWN in NAD skin no rash or subcu nodules head ncat lungs coarse bilaterally cor reg no rub or gallop abd BS hypoactive. ext no edema or cyanosis. Objective Data Vital Signs Vital Signs: Vital Signs - 24 hr 09/01/21 13:00 09/01/21 13:42 09/01/21 13:45 Temperature Pulse Rate 100 99 91 Respiratory Rate 18 18 Blood Pressure 90/72 L Pulse Oximetry 98 09/01/21 13:48 09/01/21 14:00 09/01/21 14:37 Temperature 37.7 C H Pulse Rate 102 H 84 76 Respiratory Rate 16 16 Blood Pressure 96/75 L 129/86 Pulse Oximetry 98 09/01/21 14:45 09/01/21 15:00 09/01/21 15:24 Temperature Pulse Rate 75 80 80 Respiratory Rate 16 Blood Pressure 130/92 H 144/91 H Pulse Oximetry 09/01/21 15:30 09/01/21 15:50 09/01/21 16:00 Temperature 37.6 C Pulse Rate 81 80 85 Respiratory Rate 16 Blood Pressure 133/83 133/82 95/73 L Pulse Oximetry 100 09/01/21 16:31 09/01/21 17:16 09/01/21 17:20 Temperature Pulse Rate 85 85 85 Respiratory Rate 16 Blood Pressure 95/68 L Pulse Oximetry 98 09/01/21 17:22 09/01/21 17:24 09/01/21 18:00 Temperature 37.7 C H Pulse Rate 84 83 90 Respiratory Rate 16 18 Blood Pressure 95/68 L 101/67 Pulse Oximetry 92 09/01/21 19:22 09/01/21 20:00 09/01/21 20:15 Temperature 37.9 C H Pulse Rate 87 94 91 Respiratory Rate 17 Blood Pressure 97/76 L 101/76 Pulse Oximetry 98 99 09/01/21 20:18 09/01/21 20:33 09/01/21 22:00 Temperature 37.7 C H Pulse Rate 91 93 82 Respiratory Rate 16 16 16 Blood Pressure 108/81 Pulse Oximetry 97 09/01/21 23:10 09/01/21 23:45 09/02/21 00:00 Temperature 37.7 C H Pulse Rate 81 79 Respiratory Rate 16 Blood Pressure 114/77 Pulse Oximetry 99 99 98 09/02/21 02:00 09/02/21 02:05 09/02/21 02:07 Temperature 37.5 C Pulse Rate 79 79 75 Respiratory Rate 16 17 16 Blood Pressure 101/69 Pulse Oximetry 96 09/02/21 02:08 09/02/21 02:18 09/02/21 03:20 Temperature Pulse Rate 79 84 75 Respiratory Rate 17 16 Blood Pressure Pulse Oximetry 96
[2021-09-02] MEDS: SODIUM CHLORIDE 0.9% IV 1,000 ML 100 ML IV CONT (13:01)
[2021-09-02] MEDS: NOREPINEPHRINE 8 MG/D5W 250 ML 8 MG/250 ML BAG 9.38 MG IV CONT (13:51)
[2021-09-02 14:04] LABS: Complement Total CH50 >60 U/mL (31-60)
--- NOTE | 2021-09-02 14:50 | PM.PNCARD ---
Progress Note: A&P Assessment and Plan (1) Acute exacerbation of CHF (congestive heart failure): Qualifiers: Heart failure type: unspecified Qualified Code(s): I50.9 - Heart failure, unspecified Code(s): I50.9 - Heart failure, unspecified Status: Acute Assessment and Plan: Acute on chronic systolic and diatolic CHF. Worsening shortness of breath over the past 3 weeks with bilateral pleural effusions noted on chest x-ray. He is s/p thoracentesis on 08/26 with 1L fluid evacuated. Furosemide and antihypertensives on hold at this time due to hypotension On Dobutamine 5 mcg/kg/min for hemodynamic support Pacing rate increased to 70 ppm. Resume GDMT with losartan and metoprolol when appropriate (i.e. when off inotrope and pressor support). Unable to use ARNI because he has an JUSTIN allergy. Could optimize medical therapy with addition of spironolactone when kidney function improves. Monitor renal function and electrolytes with serial BMP; renal fxn worsened today. Cont dobutamine and supportive care ? Chest CT tomorrow (2) Nonischemic cardiomyopathy: Code(s): I42.8 - Other cardiomyopathies Status: Acute Assessment and Plan: EF has declined since pt was at [facility] in July; EF ws 40-45%, now 30-35%. (3) Shock: Code(s): R57.9 - Shock, unspecified Status: Acute Assessment and Plan: Cardiogenic? shock requiring Levophed (4) Pneumonia: Code(s): J18.9 - Pneumonia, unspecified organism Status: Acute Assessment and Plan: I suspect pneumonia; not much edema that would be consistent w/ CHF, and main issue is poor oxygenation. COVID negative 08/24/2021 Antibiotic overage expanded (5) NSVT (nonsustained ventricular tachycardia): Code(s): I47.2 - Ventricular tachycardia Status: Acute Assessment and Plan: Infrequent brief NSVT noted on telemetry. Resume BB when BP better., keep K+ WNL. (6) Status post biventricular pacemaker: Code(s): Z95.0 - Presence of cardiac pacemaker Status: Acute Assessment and Plan: Medtronic device implanted in July 2021 for CHB. [facility] Not an ICD. Interrogation shows normal fxn. Subjective Date/time seen: 09/02/21 14:50 Interval history: Interval history: 76-year-old admitted for shortness of breath and acute CHF. EF 30-35%. Has a Medtronic Bi V pacemaker (not an ICD) implanted 07/2021. Date of service 08/27/2021: Complains of constipation. No chest pain. Is short of breath with activity. Date of service 08/28/2021: CPAP in place. No chest pain or shortness of breath is documented Date of service 08/29/2021: He has been transferred to the ICU for higher of level of care d/t hypotension. Currently on BiPAP, resting comfortably but is somnolent. Pacing rate increased from 50-70. Started on dobutamine and Levophed. Date of service 08/30/2021: Patient says he is feeling better, breathing better. Was on BiPAP overnight, now 4 L nasal cannula. Remains on Levophed 1 mcg , dobutamine 5 mcg. Telemetry shows sinus rhythm, ventricular pacing. Daughters at bedside. Medtronic Bi V ICD interrogated, normal function, rate reprogrammed to 70 beats per minute. Longevity 9 years. Date of service 08/31/2021: Pt unfortunately took a turn for the worse and was intubated today due to worsening respiratory failure, decreased mentation and hypoxia. Remains on levophed up to 3 mcg and dobutamine 5 mcg. Antibiotic coverage expanded. 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 echo 07/2021 showed EF 40-45%, severe hypokinesis of the inferior wall, diastolic dysfunction, mild left ventricular enlargement, no significant valve disease. Hypertension, hyperlipidemia, diab
[2021-09-02] MEDS: MIDAZOLAM 100MG/NS 100ML(*CRX) 100 MG/100 ML BAG IV CONT (16:58)
[2021-09-02 17:17] LABS: Glucose Point of Care 222 mg/dl (65-105)
[2021-09-02 22:18] LABS: Glucose Point of Care 178 mg/dl (65-105)
[2021-09-03] VITALS (49 sets, daily range): BP systolic 82–125; BP diastolic 62–83; PULSE 70–82; RESP 12–25; TEMP 36.2–37.2; O2SAT 85–97
[2021-09-03 00:16] LABS: Glucose Point of Care 151 mg/dl (65-105)
[2021-09-03] MEDS: IPRATROPIUM BR 0.02% INH SOLN 0.5 MG/2.5 ML VIAL INHALATION ×4 (02:21→19:54)
[2021-09-03] MEDS: ALBUTEROL SULFATE NEB 2.5 MG/3 ML INH INHALATION ×4 (02:22→19:54)
[2021-09-03 04:36] LABS: Glucose Point of Care 254 mg/dl (65-105)
[2021-09-03] MEDS: INSULIN ASPART (*BKC) 100 UNITS/ML SUB-Q ×4 (04:40→23:29)
[2021-09-03] MEDS: CENTRAL LINE FLUSH 10 ML IV PUSH ×3 (04:43→20:25)
[2021-09-03 04:46] LABS: Lactic Acid Reflex 1.8 mmol/L (0.7-2.0)
[2021-09-03 04:50] LABS: Alanine Aminotransferase 39 U/L (6-50); Albumin Level 3.4 g/dL (3.5-5.1); Alkaline Phosphatase 61 U/L (38-126); Anion Gap 12 mmol/L (8-16); Aspartate Amino Transferase 72 U/L (17-59); Bilirubin,Total 1.5 mg/dL (0.2-1.3); Blood Urea Nitrogen 83 mg/dL (9-20); Calcium 7.3 mg/dL (8.4-10.2); Carbon Dioxide 21 mmol/L (22-30); Chloride 94 mmol/L (98-107); Estimated CRCL calculation 21 ml/min; Estimated Glomerular Filt Rate 28; Glucose 228 mg/dL (65-110); Magnesium 2.9 mg/dL (1.6-2.3); Phosphorus 5.4 mg/dL (2.5-4.5); Potassium 4.7 mmol/L (3.4-5.0); Sodium 127 mmol/L (137-145)
[2021-09-03] MEDS: DOBUTamine 250 MG/D5W 250 ML 250 MG/250 ML BAG 22.44 MG IV CONT ×2 (04:51→16:36)
[2021-09-03 05:17] LABS: Alveolar/Arterial O2 Gradient 226.4 mmHg; Base Excess ABG -4.2 mEq/l (+/-2.0); Carboxyhemoglobin 0.3 % THb (0-2.0); Fractional Inspired Oxygen 45 %; HCO3 ABG 19.1 mEq/l (22.0-26.0); Methemoglobin ABG 0.2 %THb (0-1.5); Oxygen Content ABG 14.6 %vol (16.0-22.0); Oxygen Saturation ABG 92.3 % (95.0-100.0); Oxyhemoglobin 90.7 % THb (90.0-100.0); PCO2 ABG 29.6 mmHg (35.0-45.0); PO2 ABG 60.8 mmHg (80.0-100.0); PO2 FiO2 Ratio Arterial Blood 1.35 %; Reduced Hemoglobin 8.8 %THb (0-5.0); Total Hemoglobin 11.4 g/dL (12.0-18.0); pH ABG 7.428 (7.350-7.450)
[2021-09-03 05:22] LABS: Arterial Blood Gas PEEP 8 cmH2O; Arterial Blood Gas Tidal Volume 450 ml; Arterial Blood Gas Vent Mode CMV; Arterial Blood Gas Ventilator rate 16 /MIN; Device VENTILATOR; Modified Allen's Test Unable to perform; Site Drawn RIGHT RADIAL
--- NOTE | 2021-09-03 06:22 | PC.NURSE ---
Scleral contact came out of the patients right eye when I was placing his eye drops. It is in a sterile cup with saline at the bedside. The set up and charger was unable to put it back due to the patient fighting her and keeping his eyes tightly shut.
--- NOTE | 2021-09-03 08:45 | PM.PNCARD ---
Progress Note: A&P Additional Plan 76-year-old man with significant cardiomyopathy. His clinical course would tend to predict a poor outcomes is he is showing worsening renal functions/end-organ perfusion and has enough hypotension to prohibit affective medical treatment of his congestive heart failure. Rhythm is optimized he is in a AV paced rhythm with his Bi V ICD. Prognosis is poor. Apparently family situation is also difficult as his /next of kin is demented. Madi Alberts MD [facility] Subjective Date/time seen: Date of service:09/03/21 08:45 Interval history: Follow-up visit in this 76-year-old man with: Significant cardiomyopathy with severe systolic and diastolic dysfunction, recently placed bi V ICD at outside hospital. Patient presents with shortness of breath, respiratory failure is now intubated on the ventilator in the ICU for several days. Medication for heart failure is on hold because of hypotension. Renal failure was worsening. Remains on low dose of dobutamine. Exam Const: General: comfortable and ill appearing; No confusion Orientation/consciousness: No confusion Other: Intubated and sedated in ICU bed 2 HENMT: Head: normal to inspection General nose exam: no epistaxis Mouth: Yes other (ETT in place) Eyes: General: appearance normal, both eyes and all related structures EOM: EOMs intact bilaterally Neck: Neck: supple and no JVD Resp: Effort & Inspection: normal respiratory effort Auscultation: clear to auscultation bilaterally and rales Other: Decreased breath sounds left lower lobe, rales in the right lower lobe Cardio: Rate: regular rate Rhythm: regular rhythm Heart sounds: Murmur heart sound present ( 1/6 STAN at the left sternal border and apex) GI: Auscultation: normal bowel sounds Skin: General skin exam: normal color and no rashes or lesions noted Wounds: no wounds Neuro: General: No confusion Cranial nerves: Yes Normal hearing present Cognition (Neuro): abnormal cognition Speech: normal speech Other: sedated Extrem: General: normal to inspection, no edema and no pedal edema Psych: Mental Status: mental status grossly abnormal Affect: normal affect Other: sedated Objective Data Vital Signs Vital Signs: Vital Signs - 24 hr 09/02/21 08:49 09/02/21 08:52 09/02/21 08:53 Temperature Pulse Rate 70 70 70 Respiratory Rate 16 Blood Pressure 132/85 132/85 Pulse Oximetry 09/02/21 09:00 09/02/21 09:08 09/02/21 09:14 Temperature 36.6 C Pulse Rate 70 70 70 Respiratory Rate 16 Blood Pressure 128/86 128/68 128/86 Pulse Oximetry 99 09/02/21 10:00 09/02/21 10:10 09/02/21 10:53 Temperature 36.5 C Pulse Rate 70 70 70 Respiratory Rate 16 Blood Pressure 132/86 132/86 Pulse Oximetry 96 96 09/02/21 11:34 09/02/21 11:45 09/02/21 11:53 Temperature Pulse Rate 70 70 70 Respiratory Rate 16 Blood Pressure 115/86 118/84 Pulse Oximetry 96 09/02/21 12:00 09/02/21 12:02 09/02/21 12:03 Temperature 36.3 C L Pulse Rate 70 70 70 Respiratory Rate 18 18 Blood Pressure 102/77 102/77 Pulse Oximetry 100 09/02/21 12:04 09/02/21 12:05 09/02/21 13:02 Temperature Pulse Rate 70 70 70 Respiratory Rate 19 Blood Pressure 102/77 112/83 Pulse Oximetry 09/02/21 13:19 09/02/21 13:51 09/02/21 13:52 Temperature Pulse Rate 70 70 70 Respiratory Rate 16 Blood Pressure 115/86 115/86 Pulse Oximetry 09/02/21 13:53 09/02/21 14:00 09/02/21 14:08 Temperature Pulse Rate 70 70 70 Respiratory Rate 16 18 Blood Pressure 116/82 Pulse Oximetry 98 99 09/02/21 14:09 09/02/21 16:00 09/02/21 16:23 Temperature 36.2 C L Pulse Rate 70 70 70 Respiratory Rate 18 16 Blood Pressure 116/82 101/76 106/76 Pulse Oximetry 96 09/02/21 16:44 09/02/21 16:58 09/02/21 17:03 Temperature Pulse Rate 70 71 71 Respiratory Rate 18 Blood Pressure 103/72 Pulse Oximetry 95 09/02/21 17:36 09/02/21 17:45
[2021-09-03] MEDS: ENOXAPARIN 40 MG/0.4 ML SYRINGE SUB-Q (09:09)
[2021-09-03] MEDS: DORZOLAMIDE/TIMOLOL OPHTH SOL 10 ML BOTTLE 1 DROP EACH EYE ×2 (09:09→20:24)
[2021-09-03] MEDS: PANTOPRAZOLE SODIUM IV 40 MG VIAL IV PUSH (09:10)
[2021-09-03] MEDS: POLYMYXIN/TRIMETHOPRIM OPHTH 10 ML DROPS 1 DROP EACH EYE ×2 (09:12→20:24)
[2021-09-03] MEDS: MINERAL OIL/WHITE PETROLATUM OINTMENT 1 APPLIC EACH EYE ×2 (09:13→20:24)
[2021-09-03] MEDS: ESCITALOPRAM OXALATE 10 MG TABLET 20 MG PO (09:15)
[2021-09-03 09:16] LABS: Glucose Point of Care 190 mg/dl (65-105)
[2021-09-03] MEDS: PSYLLIUM SUGAR FREE POWDER PACKET 1 PACKET PO (09:16)
[2021-09-03] MEDS: polyethylene glycoL 3350 17 GM POWD.PACK PO (09:16)
--- NOTE | 2021-09-03 09:21 | WPDINTPN ---
Progress Note: A&P Assessment and Plan (1) Acute respiratory failure: Code(s): J96.00 - Acute respiratory failure, unspecified whether with hypoxia or hypercapnia Status: Acute Assessment and Plan: Acute respiratory failure likely related to congestive heart failure, pneumonia -08/31: patient had increased work of breathing, tachypneic, hypoxic, was in impending respiratory failure, patient was successfully intubated and placed on mechanical ventilation -currently on CMV mode of ventilation, peep of 8, 45% FiO2 -09/03: chest x-ray this morning shows Persistent opacities in the bilateral lower lung zones, left greater than right consistent with small left and likely very small right pleural effusions with associated basilar atelectasis and/or pneumonia -ABGs reviewed, ventilator adjusted -patient on low-dose fentanyl and Versed infusion for sedation, maintain RASS of 0 to -2, daily sedation vacation -continue bronchodilators -09/01: Blood and sputum cultures have been obtained (2) Pneumonia: Code(s): J18.9 - Pneumonia, unspecified organism Status: Acute Assessment and Plan: Continue cefepime and vancomycin -continue bronchodilator -09/01: sputum cultures no growth (3) Shock: Code(s): R57.9 - Shock, unspecified Status: Acute Assessment and Plan: Patient with hypotension likely combination of cardiogenic and septic shock -s/p Hespan and Albumin on 09/01 -Currently Levophed and vasopressin, will maintain SBP > 65 mmHg -continue dobutamine at 5 mcg/kg/min -Lactic acid of 1.8 this am Right IJ central line placed on 08/29. Right femoral central line was attempted but could not advance the catheter - 09/01: blood and urine cx No growth D/w Cardiology, continue current management (4) Acute exacerbation of CHF (congestive heart failure): Qualifiers: Heart failure type: unspecified Qualified Code(s): I50.9 - Heart failure, unspecified Code(s): I50.9 - Heart failure, unspecified Status: Acute Assessment and Plan: continue Levophed and vasopressin Continue dobutamine Cardiology following the patient Hold diuretics Echo reviewed and shows 1. Complete two-dimensional, color flow and Doppler transthoracic echocardiogram is performed. 2. Left ventricular systolic function is moderately reduced, estimated at 30-35%. Flat interventricular septum consistent with increased RV pressure load. 3. There is severely increased left ventricular wall thickness. 4. The left ventricular diastolic function is abnormal. 5. Right ventricular chamber dimension is moderately enlarged. Linear artifact consistent with pacemaker wire. 6. Right ventricular systolic function is reduced. 7. Right atrial chamber dimension is moderately enlarged. 8. Bowing of the interatrial septum to the left by 2D imaging. 9. There is trace aortic valve regurgitation. 10. There is mild aortic valve sclerosis. 11. There is mild mitral valve regurgitation. 12. There is mild tricuspid valve regurgitation. 13. Mild pulmonary hypertension, estimated pulmonary arterial systolic pressure is 39 mmHg. (5) Type 2 diabetes mellitus: Qualifiers: Diabetes mellitus complication status: with hyperglycemia Diabetes mellitus medical records coder insulin use: with medical records coder use Qualified Code(s): E11.65 - Type 2 diabetes mellitus with hyperglycemia; Z79.4 - long-term (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 of insulin Code(s): E11.9 - Type 2 diabetes mellitus without complications Status: Acute Assessment and Plan: Uncontrolled, A1c is 7.9 this admission continue Lantus sliding scale insulin q.4 hours and high scale (6) Pulmonary edema: Code(s): J81.1 - Chronic pulmonary edema Status: Acute Assessment and Plan: Currently on mechanical ventilation with a PEEP of 8 -hold diuresis due to septic/cardiogenic shock, hypotension pt may require CRRT/HD, will d/w Nephrology (7) A
[2021-09-03] MEDS: LATANOPROST 0.005% OP SOLN 2.5 ML BTL 1 DROP EACH EYE (09:24)
[2021-09-03 09:25] LABS: Vancomycin Trough 22.9 ug/mL (10.0-20.0)
[2021-09-03] MEDS: ASPIRIN 81 MG CHEWABLE TABLET PO (09:25)
[2021-09-03 09:32] LABS: Hepatitis B Surface Antigen Negative (Negative)
[2021-09-03] MEDS: INSULIN GLARGINE (*BKC) 100 UNITS/ML 15 UNITS SUB-Q (09:42)
[2021-09-03 09:49] LABS: Hepatitis B Surface Anti Res Negative
--- NOTE | 2021-09-03 10:08 | PM.IMPN ---
Progress Note: A&P Assessment and Plan (1) Hypotension: Code(s): I95.9 - Hypotension, unspecified Status: Acute Assessment and Plan: Cardiogenic shock On pressors and manage per the ACS (2) Hypoxia: Code(s): R09.02 - Hypoxemia Status: Acute Assessment and Plan: secondary to pulmonary edema and or pneumonia management per ICU continue abx (3) Acute exacerbation of CHF (congestive heart failure): Qualifiers: Heart failure type: unspecified Qualified Code(s): I50.9 - Heart failure, unspecified Code(s): I50.9 - Heart failure, unspecified Status: Acute Assessment and Plan: Management in the ICU / cardiology Reduced EF, RV dysfunction noted as well. (4) Type 2 diabetes mellitus: Qualifiers: Diabetes mellitus complication status: with hyperglycemia Diabetes mellitus ferry terminal agent insulin use: with jail use Qualified Code(s): E11.65 - Type 2 diabetes mellitus with hyperglycemia; Z79.4 - termite control service representative (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 of insulin Code(s): E11.9 - Type 2 diabetes mellitus without complications Status: Acute Assessment and Plan: continue Lantus sliding scale insulin q.4 hours and high scale (5) Pulmonary edema: Code(s): J81.1 - Chronic pulmonary edema Status: Acute Assessment and Plan: see plan above (6) Acute kidney injury: Code(s): N17.9 - Acute kidney failure, unspecified Status: Acute Assessment and Plan: Nephrology following (7) Hyperkalemia: Code(s): E87.5 - Hyperkalemia Status: Acute Assessment and Plan: Monitor (8) Anxiety: Code(s): F41.9 - Anxiety disorder, unspecified Status: Acute Assessment and Plan: Monitor Subjective Date/time seen: 09/03/21 10:08 Sedated on the vent Exam Narrative: General: Intubated and sedated Lungs/Chest: coarse breath sounds bilaterally, decreased at bases, adequate air entry Cardiac: . Paced rhythm Circulation: Extremities are less cool Abdomen: Hypoactive bowel sounds. Soft. NT. ND. Extremities: No clubbing, cyanosis or edema. Pedal pulses are diminished : Jones in place Neurologic: Patient is intubated and sedated, does not open his eyes to name or follow commands Skin: No Rash HEENT: patient is legally blind in both eyes Const: General: cooperative, comfortable, no acute distress, well developed, alert and awake Nutritional Appearance: thin Orientation/consciousness: patient oriented x3 HENMT: Head: normal to inspection, normocephalic and atraumatic Ears: hearing grossly normal bilaterally General nose exam: Normal external nose present Face and sinus: normal facial exam Eyes: General: dysmorphic (enophtalmus bilateral blindness) Pupils: Equal, round and reactive pupils present Neck: Neck: normal visual inspection, full ROM, no lymphadenopathy, supple and no JVD Thyroid: thyroid normal Lymphatic: no lymphadenopathy noted Resp: Effort & Inspection: normal respiratory effort and able to speak in complete sentences Auscultation: clear to auscultation bilaterally and crackles (Bases) Cardio: Jugular venous distension: no JVD Rate: regular rate Rhythm: regular rhythm Heart sounds: S1 normal heart sound present and S2 normal heart sound present GI: Inspection: normal to inspection : General: Yes deferred Skin: Rashes: no rashes Wounds: no wounds Neuro: General: patient oriented x3 and CN's II-XI intact bilaterally Cranial nerves: Yes CN's II-XII intact bilaterally and Yes Equal, round and reactive pupils present Cognition (Neuro): normal cognition Speech: normal speech Gait exam (Neuro): Normal gait present Motor exam (neuro): 5/5 motor strength present throughout Sensory Exam: No Sensory deficit (Neuro) Extrem: General: edema and pedal edema bilaterally Psych: Appearance: grossly normal and well kempt Objective Data Vital Signs Vital Signs: Vital Signs - 2
[2021-09-03 10:48] LABS: INR 1.3; Prothrombin Time 15.7 Seconds (11.1-14.7)
[2021-09-03 10:49] LABS: Partial Thromboplastin Time 38.9 SECONDS (22.3-36.8)
--- NOTE | 2021-09-03 11:24 | PM.PNNEP ---
Progress Note: A&P Additional Plan 1. Possible chronic kidney disease. his creatinine looks like it has a baseline of around 1.6. 2. the patient has acute kidney injury. renal sono is negative .urine 'lytes prerenal UA shows some blood and wbcs. on antibiotidsc ck is okay currently due to hypotension, prerenal factors. He most certainly has a severe pneumonia involving the left lower lobe. This may be leading to ATN. He also has hypotension. He also has a poor cardiac output which is underlying all of this. He is on dobutamine to improve cardiac output. Discussed with Dr. Johnston. Perhaps the patient might do better with a higher systolic pressure. Will aim for a systolic closer to 100. I agree with continuing dobutamine. I worry about dopamine causing GI issues. Currently his FiO2 is stable at 45%. So will try another L of IV fluids over a few hours. His potassium and BUN are not high enough that he would need dialysis emergently. There is no way we would get any fluid off with his blood pressure. Will reassess tomorrow and decide about dialysis and or further measures. 3. hypertension. off antihypertensives currently 4. Hypotension. due to infx vs cardiogenic? Cultures are negative so far. He is on antibiotics just in case. Continue supportive care. 5. Diabetes: The patient is on sliding scale insulin and Accu-Cheks per hospitalist. 6. hypoxia: The patient is on the ventilator. FiO2 45%. This is stable. 7. acidosis CO2 dropped a little bit. Will check a lactic acid. 8. Congestive heart failure. He continues on dobutamine drip. 9. the patient has hyponatremia. Sodium level dropped a little more to 127. Subjective Date/time seen: 09/03/21 11:24 Interval history: the patient is about the same today. He is still intubated. On sedatives. Blood pressure is in the 80s and 90s. Urine output is still meager. Exam Narrative: WDWN in NAD skin no rash head ncat lungs coarse bilaterally cor reg no rub or gallop abd BS+ nontender and soft ext no edema. Objective Data Vital Signs Vital Signs: Vital Signs - 24 hr 09/02/21 11:34 09/02/21 11:45 09/02/21 11:53 Temperature Pulse Rate 70 70 70 Respiratory Rate 16 Blood Pressure 115/86 118/84 Pulse Oximetry 96 09/02/21 12:00 09/02/21 12:02 09/02/21 12:03 Temperature 36.3 C L Pulse Rate 70 70 70 Respiratory Rate 18 18 Blood Pressure 102/77 102/77 Pulse Oximetry 100 09/02/21 12:04 09/02/21 12:05 09/02/21 13:02 Temperature Pulse Rate 70 70 70 Respiratory Rate 19 Blood Pressure 102/77 112/83 Pulse Oximetry 09/02/21 13:19 09/02/21 13:51 09/02/21 13:52 Temperature Pulse Rate 70 70 70 Respiratory Rate 16 Blood Pressure 115/86 115/86 Pulse Oximetry 09/02/21 13:53 09/02/21 14:00 09/02/21 14:08 Temperature Pulse Rate 70 70 70 Respiratory Rate 16 18 Blood Pressure 116/82 Pulse Oximetry 98 99 09/02/21 14:09 09/02/21 14:31 09/02/21 14:45 Temperature 36.2 C L 36.2 C L Pulse Rate 70 70 70 Respiratory Rate 18 16 16 Blood Pressure 116/82 100/74 Pulse Oximetry 98 98 09/02/21 14:46 09/02/21 15:00 09/02/21 15:01 Temperature 36.2 C L 36.2 C L 36.2 C L Pulse Rate 70 70 70 Respiratory Rate 16 17 15 Blood Pressure 106/72 106/73 Pulse Oximetry 98 95 94 09/02/21 15:17 09/02/21 15:30 09/02/21 15:31 Temperature 36.1 C L 36.1 C L 36.1 C L Pulse Rate 70 70 70 Respiratory Rate 17 18 17 Blood Pressure 104/75 Pulse Oximetry 95 95 95 09/02/21 15:51 09/02/21 16:00 09/02/21 16:23 Temperature 36.2 C L 36.2 C L Pulse Rate 70 70 70 Respiratory Rate 19 16 Blood Pressure 101/76 106/76 Pulse Oximetry 95 96 09/02/21 16:44 09/02/21 16:58 09/02/21 17:03 Temperature Pulse Rate 70 71 71 Respiratory Rate 18 Blood Pressure 103/72 Pulse Oximetry 95 09/02/21 17:36 09/02/21 17:45 09/02/21 17:46 Temperature 36.3 C L Puls
[2021-09-03 12:14] LABS: Glucose Point of Care 213 mg/dl (65-105)
[2021-09-03] MEDS: SODIUM CHLORIDE 0.9% IV 1,000 ML 100 ML IV CONT (12:46)
[2021-09-03] MEDS: ALBUMIN HUMAN 25% 25 GM/100 ML 100 ML IVPB ×3 (12:48→23:39)
[2021-09-03 14:23] LABS: Lactic Acid Reflex 1.5 mmol/L (0.7-2.0)
[2021-09-03 17:23] LABS: Glucose Point of Care 194 mg/dl (65-105)
--- NOTE | 2021-09-03 17:28 | PC.NURSE ---
Addendum entered by Candelaria Jain RN 09/03/21 17:56: order for stat chest xray. Original Note: Pt requiring more oxygen while on ventilator, increased from 45% to 60% in order to maintain sats above 92%. also, increased Levophed requirements, titrating up from 7mcg/min to 9 mcg/min to maintain target systolic BP of 100 or greater.
[2021-09-03 19:10] LABS: Alveolar/Arterial O2 Gradient 397.2 mmHg; Base Excess ABG -6.2 mEq/l (+/-2.0); Fractional Inspired Oxygen 70 %; HCO3 ABG 17.8 mEq/l (22.0-26.0); Oxygen Content ABG 14.2 %vol (16.0-22.0); Oxygen Saturation ABG 94.1 % (95.0-100.0); Oxyhemoglobin 92.2 % THb (90.0-100.0); PO2 ABG 69.7 mmHg (80.0-100.0); Total Hemoglobin 10.9 g/dL (12.0-18.0)
[2021-09-03 19:11] LABS: Site Drawn RIGHT RADIAL
[2021-09-03 19:12] LABS: Arterial Blood Gas PEEP 10 cmH2O; Arterial Blood Gas Tidal Volume 450 ml; Arterial Blood Gas Vent Mode CMV; Arterial Blood Gas Ventilator rate 16 /MIN; Device VENTILATOR; Modified Allen's Test Unable to perform
[2021-09-03 19:46] LABS: Amylase, Pleural Fluid <10 U/L
[2021-09-03 20:19] LABS: Glucose Point of Care 247 mg/dl (65-105)
[2021-09-03 23:27] LABS: Glucose Point of Care 283 mg/dl (65-105)
[2021-09-03] MEDS: NOREPINEPHRINE 8 MG/D5W 250 ML 8 MG/250 ML BAG 22.5 MG IV CONT (23:28)
[2021-09-04] VITALS (10 sets, daily range): BP systolic 39–98; BP diastolic 27–69; PULSE 70–78; RESP 17–26; TEMP 36.9–37.2; O2SAT 92–100
[2021-09-04] MEDS: ALBUTEROL SULFATE NEB 2.5 MG/3 ML INH INHALATION (02:18)
[2021-09-04] MEDS: IPRATROPIUM BR 0.02% INH SOLN 0.5 MG/2.5 ML VIAL INHALATION (02:19)
[2021-09-04 03:25] LABS: Alveolar/Arterial O2 Gradient 384.3 mmHg; Base Excess ABG -16.3 mEq/l (+/-2.0); Carboxyhemoglobin 0.2 % THb (0-2.0); Fractional Inspired Oxygen 70 %; HCO3 ABG 10.6 mEq/l (22.0-26.0); Methemoglobin ABG 0.2 %THb (0-1.5); Oxygen Content ABG 14.5 %vol (16.0-22.0); Oxygen Saturation ABG 93.9 % (95.0-100.0); Oxyhemoglobin 92.1 % THb (90.0-100.0); PO2 ABG 83.6 mmHg (80.0-100.0); PO2 FiO2 Ratio Arterial Blood 1.19 %; Reduced Hemoglobin 7.5 %THb (0-5.0); Total Hemoglobin 11.1 g/dL (12.0-18.0)
--- NOTE | 2021-09-04 03:25 | PC.NURSE ---
Blood pressures extremely low, unable to obtain manual blood pressure. Dr Johnston called for additional orders and multiple attempts to reach Dr Ng for arterial line. Shanice Wood called to assist with reaching Dr Ng.
[2021-09-04 03:28] LABS: Arterial Blood Gas PEEP 10 cmH2O; Arterial Blood Gas Tidal Volume 450 ml; Arterial Blood Gas Vent Mode CMV; Arterial Blood Gas Ventilator rate 16 /MIN; Device VENTILATOR; Modified Allen's Test Unable to perform; Site Drawn RIGHT RADIAL; pH ABG 7.182 (7.350-7.450)
[2021-09-04] MEDS: DOBUTamine 250 MG/D5W 250 ML 250 MG/250 ML BAG 22.44 MG IV CONT (03:28)
[2021-09-04] MEDS: EPINEPHrine INJ 1 MG in DEXTROSE 5% IN WATER 250 ML 15.06 MG IV CONT (03:30)
[2021-09-04] MEDS: VASOPRESSIN INJ 100 UNITS in DEXTROSE 5% 95 ML IV CONT (03:31)
--- NOTE | 2021-09-04 04:33 | PDCODEBLUE ---
Code Blue Note Code Blue Note Time Arrived at Code Blue: Already in room. Initial Rhythm on Arrival: PEA Airway Management: Pt intubated during resuscitation (VALVE BAG Patient initially on ventilator) Chest Compressions: Initiated upon arrival Result of Code Blue: Pt Cardiac Rhythm Post Code: Patient with pacemaker in place rhythm was unable to analyze due to pacemaker rhythm was paced. PEA Code Blue Summary: PATIENT WITH LOW BLOOD PRESSURES IN SPITE OF BEING ON 4 VASOPRESSORS WITH SYSTOLIC IN THE 50S AND DIASTOLIC IN THE 30S A PULSE CHECK SHOWED NO PULSE PRESENT A JARED SUTTON WAS CALLED AND CHEST COMPRESSIONS WERE STARTED RIGHT AWAY. PATIENT RECEIVED MULTIPLE BICARB AMPS AND CALCIUM CHLORIDE WELL EPINEPHRINE SHOCK X2 TO ROUNDS 10 MINUTE H WERE CONDUCTED WITH NO RETURN OF CIRCULATION IT WAS DECIDED A POINT TO END OR RESUSCITATIVE EFFORTS
--- NOTE | 2021-09-04 05:42 | PC.NURSE ---
At 0230, the patients blood pressure started to decrease, so I increased his Levophed. I called Dr. Johnston and we began vasopressin. His blood pressure did not increase so I called Dr. Johnston again and he told me to start an epinephrine drip. I called pharmacy to inform them and then I called the family. I spoke to the patients granddaughter, Sindi, and informed her of his condition. I also called her mom, Ivon, the patients daughter and she did not answer the phone. I then called the patients and updated her of his condition. While I was on the phone with her the patient arrested and I asked her if she would like us to do CPR and she stated do everything . We coded the patient until it was called by Dr. Ng at 035. I called Nelly, patients , and told of his passing. She hung up the phone on me and I called the granddaughter so someone could check on Nelly. We called Taryn at [phone] and no one answered the phone and her mailbox was full. Another family member was able to reach her. I talked to Darrel, patients brother, and I let him know of the situation. He began to give me a list of all the people coming to see the patient and I let him know, per packing house supervisor Shanice, that 10 people may come and be in the lobby and 2 can come to the room at a time and switch out. Daughters are at the patients bedside at this time.
--- NOTE | 2021-09-04 05:55 | PC.NURSE ---
[facility] pursuing donation. Will place body in morgue when family leaves. Will pass on to day scrap charger to notify [facility] of time.
--- NOTE | 2021-09-04 06:01 | PC.NURSE ---
Chief Deputy Coroner, Omer, made aware of family choice to use Officer in [facility]. Aware [facility] is pursuing skin donation.
--- NOTE | 2021-09-04 09:00 | PC.NURSE ---
Spoke with DALILA at [facility] and family has declined donation, [facility] has released body to home. Calling Officer home at 0900 and body is down in morgue.
[2021-09-05 17:46] LABS: Albumin 51 %; Measured Kappa Chains 2.45 mg/dL (<2.00); Measured Lambda Chains <1.00 mg/dL (<2.00); Pro/Creat Ratio 219 mg/g creat (<=114); Total Kappa Chains 14.7 mg/24 h
[2021-09-07 14:51] LABS: Protein,total, 24 Hr Ur 150 mg/24h
--- NOTE | 2021-09-16 12:26 | PM.DS ---
DS: Admitting Diagnosis Discharge Date 09/04/21 Admitting Diagnosis chf DS: Discharge Diagnosis Discharge Diagnosis (1) Hypotension: Code(s): I95.9 - Hypotension, unspecified Status: Acute Assessment and Plan: 2/2 cardiogenic shock (2) Hypoxia: Code(s): R09.02 - Hypoxemia Status: Acute Assessment and Plan: 2/2 cardiogenic shock (3) Acute exacerbation of CHF (congestive heart failure): Qualifiers: Heart failure type: unspecified Qualified Code(s): I50.9 - Heart failure, unspecified Code(s): I50.9 - Heart failure, unspecified Status: Acute (4) Type 2 diabetes mellitus: Qualifiers: Diabetes mellitus complication status: with hyperglycemia Diabetes mellitus shelter insulin use: with shelter use Qualified Code(s): E11.65 - Type 2 diabetes mellitus with hyperglycemia; Z79.4 - 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 churn 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 (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 of 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 Code(s): E11.9 - Type 2 diabetes mellitus without complications Status: Acute (5) Pulmonary edema: Code(s): J81.1 - Chronic pulmonary edema Status: Acute Assessment and Plan: see plan above (6) Acute kidney injury: Code(s): N17.9 - Acute kidney failure, unspecified Status: Acute Assessment and Plan: 2/2 above (7) Hyperkalemia: Code(s): E87.5 - Hyperkalemia Status: Acute Assessment and Plan: Monitor (8) Anxiety: Code(s): F41.9 - Anxiety disorder, unspecified Status: Acute Assessment and Plan: Monitor DS: Summary Hospital Course Hospital Course: tod 439 on 09/04/21 pt Time Spent with Patient Time attestation: Total time spent providing and/or coordinating discharge services: DS: Data Data Completed and Pending Completed studies during hospitalization: Pending at discharge 08/25/21 13:55 Cytology [PTH] Routine Labs on day of discharge: Preliminary micro results at discharge 08/26/21 11:19 Acid Fast Bacilli Culture - Preliminary Pleural Fluid Fungal Culture - Preliminary Discharge Plan Discharge Attending physician on discharge: Madi Nichols Consulting providers: Neo Pettit ; Aries Bell ; Annmarie Vanessa ; Alfredo Anna ; Madi Nichols ; Tono Szymanski ; Fabrizio Garcia ; Rachael Yao ; Madi Alberts ; Qamar Moore ; Sadi Baez ; Kirt King ; Laurent Lagunas ; Dell Caceres ; Eun Johnston ; Santhosh Acevedo V. ; Rimma Barrientos Discharging Clinician: Madi Nichols Patient Disposition: Patient Instructions: Heart Failure (DC), Heart Failure (GEN) Discharge Medications: Discontinued metformin 500 mg Tablet 1,000 mg PO DAILY furosemide 40 mg Tablet 40 mg PO DAILY potassium chloride 10 mEq Tablet Extended Release 20 meq PO DAILY polymyxin B sulf-trimethoprim 10,000 unit- 1 mg/mL Drops 1 drp EACH EYE BID losartan 25 mg Tablet 25 mg PO DAILY aspirin 81 mg Tablet,Chewable 81 mg PO DAILY dorzolamide-timolol 22.3-6.8 mg/mL Drops 1 drp ophthalmic (eye) BID escitalopram oxalate [Lexapro] 20 mg Tablet 20 mg PO DAILY empagliflozin 25 units 12.5 mg BYMOUTH DAILY insulin glargine 12 units 12 units DAILY Adult One Daily Multivitamin 1 tablet BYMOUTH DAILY latanoprost 0.005 % Drops 1 drp EACH EYE DAILY Fish Oil 300-500 mg Capsule 2 cap PO DAILY Daily Fiber (psyllium-aspart) 3 gram Powder In Packet 1 packet PO DAILY Label Comments: Says 2 tablespoons, wasnt' sure how to get into the order here. metoprolol succinate 100 mg BYMOUTH DAILY Date of admission: 08/25/21 15:43 Primary Care Provider: [facility] Admitting Provider: Cindy Naqvi Attending physician on admission: Andrea Ng V. Condition: Stable Quality VTE Prophylaxis VTE prophylaxis: pharmacologic ordered
--- NOTE | 2021-10-14 07:44 | P.DN_ITS ---
Discharge Summary Date and Time Date of : 09/04/21 Time of : 03:56 Provider Pronounced By: Dr Ng Probable Cause of Probable Cause of : chf Summary Hospital Course: Patient was admitted for CHF exacerbation. He was having significance shortness of breath and respiratory distress. under time right seen the patient he was under the care of the ICU doctor in on the ventilator. Patient was started on several drips in the ICU to try to help cardiac function however patient subs equently continued to decline. Patient had worsening cardiac function also hypotension secondary to cardiogenic shock. Ultimately patient from CHF exacerbation. 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
== END 2021-09-04 03:56 | disposition expired | DRG 291 ==
LOC: ANHED 18:54 → ANH3MED 19:56 → ANHICU 08-29 09:46
PROVIDERS: Emergency Medicine; Internal Medicine; Internal Medicine Nephrology; Admitting Provider Family Medicine; Emergency Provider Nurse Practitioner Family; Visit Provider Internal Medicine
DX: I13.0 Hypertensive heart and chronic kidney disease with heart failure and stage 1 through stage 4 chronic kidney disease, or unspecified chronic kidney disease (principal); I50.43 Acute on chronic combined systolic (congestive) and diastolic (congestive) heart failure; J18.9 Pneumonia, unspecified organism; J96.01 Acute respiratory failure with hypoxia; J91.8 Pleural effusion in other conditions classified elsewhere; I47.2 Ventricular tachycardia; J81.1 Chronic pulmonary edema; N17.9 Acute kidney failure, unspecified; E87.2 Acidosis; E87.1 Hypo-osmolality and hyponatremia; R57.0 Cardiogenic shock; N18.30 Chronic kidney disease, stage 3 unspecified; I42.8 Other cardiomyopathies; I27.20 Pulmonary hypertension, unspecified; Z20.822 Contact with and (suspected) exposure to COVID-19; E11.22 Type 2 diabetes mellitus with diabetic chronic kidney disease; E11.319 Type 2 diabetes mellitus with unspecified diabetic retinopathy without macular edema; E11.65 Type 2 diabetes mellitus with hyperglycemia; E87.5 Hyperkalemia; H40.9 Unspecified glaucoma; H54.3 Unqualified visual loss, both eyes; F41.9 Anxiety disorder, unspecified; E78.5 Hyperlipidemia, unspecified; Z79.4 Long term (current) use of insulin; Z79.82 Long term (current) use of aspirin; Z79.84 Long term (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 of oral hypoglycemic drugs; Z79.899 Other long term (current) drug therapy; Z86.718 Personal history of other venous thrombosis and embolism; Z95.810 Presence of automatic (implantable) cardiac defibrillator
CPT/HCPCS: 32555; 36415; 36600; 71045; 71046; 71260; 74018; 76775; 80048; 80053; 80202; 81001; 82040; 82042; 82140; 82150; 82247; 82375; 82465; 82533; 82550; 82570; 82803; 82805; 82945; 82948; 83036; 83050; 83605; 83615; 83735; 83880; 83883; 83986; 84100; 84155; 84156; 84157; 84300; 84311; 84478; 84484; 85025; 85027; 85610; 85652; 85730; 86038; 86160; 86162; 86334; 86335; 86706; 87015; 87040; 87070; 87075; 87086; 87102; 87116; 87205; 87206; 87340; 88104; 88108; 88184; 88305; 89051; 92950; 93005; 93306; 94002; 94003; 94640; 94660; 96372; 96374; 96375; 96376; 97162; 97165; 99285; A9270; C1751; C9113; C9803; G0378; J0171; J0692; J0696; J1250; J1650; J1815; J1940; J2060; J2250; J3010; J3370; J7030; J7050; J7060; P9045; P9047; Q9967; U0003; U0005